=== PATIENT | male | born 1935 | race Caucasian/White ===

== ENCOUNTER 2019-08-15 05:33 | Inpatient (IN) ==
[2019-08-15] MEDS ORDERED: DUONEB (A & A) INH ONE (06:14)
[2019-08-15 06:55] LABS: BASO# 0.07 X1000 (0.0-0.2); BASO% 0.7 % (0.0-0.8); EOS# 0.36 X1000 (0.0-0.7); EOS% 3.8 % (0.0-10.0); HEMATOCRIT 41.7 % (42.0-52.0); HEMOGLOBIN 13.7 g/dL (14.0-18.0); IMM GRAN# 0.16 X1000 (0.0-0.04); IMM GRAN% 1.7 % (0.0-0.5); LYMPH% 15.9 % (20.5-51.1); MCH 30.8 PG (27-31); MCHC 32.9 g/dL (33-37); MCV 93.7 FL (81-99); MONO# 1.26 X1000 (0.11-0.59); MONO% 13.3 % (1.7-9.3); MPV 10.4 FL (7.4-10.4); NEUT% 64.6 % (42.2-75.2); PLT 255 X1000 (130-400); RBC 4.45 XMIL (4.7-6.1); RDW 13.3 % (11.5-14.5); WBC 9.45 X1000 (4.8-10.8)
[2019-08-15 07:21] LABS: ALBUMIN 3.8 g/dL (3.5-5.0); CALCIUM 9.3 mg/dL (8.8-10.2); CREATININE 1.9 mg/dL (0.7-1.2); POTASSIUM 3.9 mmol/L (3.5-5.1); TOTAL BILIRUBIN 1.1 mg/dL (0.20-1.00); TOTAL PROTEIN 8.9 g/dL (6.3-8.3)
--- NOTE | 2019-08-15 07:28 | Diag Imaging Result Doc PS360 ---
EXAM: CHEST-PORTABLE - 08/15/2019 HISTORY: cough TECHNIQUE: Portable chest COMPARISON: None. FINDINGS: Heart size is normal. Inspiration is mildly shallow. There are apparent COPD changes with mild interstitial scarring. There is no dense consolidation, substantial pleural effusion, or pneumothorax identified. IMPRESSION: Apparent COPD changes with mild interstitial scarring. No discrete pneumonia. Electronically signed by Jeff Tavera 08/15/2019 7:26 AM
--- NOTE | 2019-08-15 08:40 | PROVIDER DOCUMENTATION ---
HPI-Respiratory General - General Chief Complaint: Shortness of Breath Stated Complaint: SOB Time Seen by Provider: 08/15/19 06:22 Allergies/Adverse Reactions: Patient Allergies Allergy/AdvReac Type Severity Reaction Status Date / Time codeine AdvReac Unknown Verified 03/18/19 14:56 Home Medications: Home Medication List Medication Instructions Recorded Confirmed Last Taken Type Fluticasone/Salmet 100/50 INH 1 puff INH RTBID 09/10/14 06/23/19 06/29/19 02:30 History [Advair 100/50 Diskus] Montelukast Chew [Singulair] 10 mg PO DAILY 09/10/14 06/23/19 06/28/19 08:00 History Cranberry Fruit Extract [Cranberry] 500 mg PO DAILY 05/08/18 06/23/19 06/28/19 08:00 History Famotidine 40 mg PO DAILY 05/08/18 06/23/19 06/28/19 08:00 History Fluocinonide 0.05% Cream [Lidex 1 applicatn TOP PRN PRN 05/08/18 06/23/19 06/28/19 21:00 History 0.05% Cream] Fluticasone Propionate [Flonase 2 spray NS DAILY 05/08/18 06/23/19 06/28/19 08:00 History Allergy Relief] Furosemide [Lasix] 20 mg PO BID 05/08/18 06/23/19 06/28/19 21:00 History Guaifenesin/Dextromethorphan 1 each PO PRN PRN 05/08/18 06/23/19 06/28/19 21:00 History [Robitussin Rmepj-Spcfk-Tiew Dm] Ipratropium/Albuterol INH 1 puff INH 4XDAY 05/08/18 06/23/19 06/28/19 21:00 History [Combivent Respimat Inhaler] Minocycline [Minocin] 50 mg PO BID 05/08/18 06/23/19 06/28/19 21:00 History Nitrofurantoin Macrocrystal 100 mg PO DAILY 05/08/18 06/23/19 06/28/19 08:00 History [Nitrofurantoin] Potassium Chloride [Klor-Con M20] 20 meq PO DAILY 05/08/18 06/23/19 06/28/19 08:00 History Polyethylene Glycol 3350 [Miralax] 17 gm PO DAILY 05/14/18 06/23/19 06/28/19 08:00 History Meloxicam 15 mg PO BID PRN PRN 03/18/19 06/23/19 06/28/19 21:00 History Hydrocodone/APAP 7.5 mg/325 mg 1 ea PO Q4H PRN PRN #10 tab 06/29/19 Unknown Rx [[place]-7.5] - History of Present Illness-Resp Nature of Presenting Problem: Patient with history of COPD and chf and recent diagnosis of bladder cancer presents with shortness of breath and "I just don't feel right". He is finishing up a course of Levaquin for pneumonia. Quality of Pain: reports: none Severity in ED: denies: mild, moderate, severe Onset/Duration: reports: 1 week ago Timing: reports: still present Context: denies: recent foreign travel, insect bite (possible tick), recent chemotherapy, multiple patients with similar complaints, recent URI, out of meds, sports/exercise, aspiration/choking, other Exposure: reports: unknown cause Cough Quality/Degree: reports: no cough, moderate Episode Frequency: frequent episodes Current Respiratory Medication Therapy: Initiated albuterol/atrovent inhale, Initiated A/A nebulizer, Initiated steroid inhaler Modifying Factors: improves with: exertion Associated Symptoms: reports: cough, dizziness Similar Symptoms Previously?: Yes Recently seen or treated by another doctor?: Yes Review of Systems - Adult - REVIEW OF SYSTEMS - ADULT Constitutional: reports: no symptoms reported Eyes: reports: no symptoms reported Ears, Nose, Mouth & Throat: reports: no symptoms reported Cardiovascular: reports: no symptoms reported Respiratory: reports: see HPI Gastrointestinal: reports: no symptoms reported Genitourinary: reports: no symptoms reported Musculoskeletal: reports: no symptoms reported Integumentary: reports: no symptoms reported Neurological: reports: no symptoms reported Psychiatric: reports: no symptoms reported Endocrine: reports: no symptoms reported Hematologic/Lymphatic: reports: no symptoms reported Allergic/Immunologic: reports: no symptoms reported Past History - Adult - PAST MEDICAL HISTORY-ADULT Review of Records: reports: Old Records Reviewed, Nursing Assessment Review Major Childhood Illnesses: reports: denies history Cardiovascular: reports: denies history Respiratory: reports: asthma, COPD, other (seasonal allergies) Gastrointestinal: reports: GERD Genitourinary: reports: denies history Musculoskeletal: reports: arthritis Neurological: reports: denies history Psychiatric: reports: denies history Endocrine/Immune: reports: denies history Other Conditions: reports: denies history - PRIOR SURGERIES/PROCEDURES Surgical/Procedure History: reports: EGD - IMMUNIZATION STATUS Childhood Immunizations: UTD - FAMILY HISTORY Family History: reviewed, not pertinent Physical Exam-General - PHYSICAL EXAM-ADULT Initial Vital Signs Reviewed: Yes - CONSTITUTIONAL General Appearance: appears well, alert, no apparent distress - EYES Eyes: PERRL/EOMI, pink conjunctivae - HEAD, EARS, NOSE, MOUTH & THROAT HENMT: normocephalic/atraumatic, other (mucous membrane dry) - NECK Neck: non-tender, full range of motion, supple - RESPIRATORY Respiratory: wheezing - CARDIOVASCULAR Cardiovascular: normal peripheral pulses, regular rate, rhythm, no edema - GASTROINTESTINAL (ABDOMEN) Abdominal Exam: normal bowel sounds, non tender, soft, no organomegaly, no pulsatile mass - LYMPHATIC Lymphatic: no adenopathy - MUSCULOSKELETAL Back Exam: normal inspection, no CVA tenderness Extremity: normal range of motion, non-tender, no pedal edema - SKIN Integumentary: normal color, normal turgor, warm/dry - NEUROLOGIC Neurologic: grossly normal - PSYCHIATRIC Psych/Mental Status: normal mood/affect Progress - PLAN OF CARE/RESULTS Progress/Plan/Lab Results: Vital Signs - 8 hr 08/15/19 05:39 08/15/19 06:25 08/15/19 06:45 Temperature 97.8 F Pulse Rate 92 H 89 89 Respiratory Rate 24 17 20 Blood Pressure 131/67 127/88 O2 Sat by Pulse Oximetry 97 100 99 08/15/19 08:30 08/15/19 10:25 Temperature 99.0 F Pulse Rate 87 80 Respiratory Rate 24 25 H Blood Pressure 142/88 132/74 O2 Sat by Pulse Oximetry 97 100 Laboratory Results - last 24 hr 08/15/19 08/15/19 08/15/19 05:55 06:11 06:11 WBC 9.45 RBC 4.45 L Hgb 13.7 L Hct 41.7 L MCV 93.7 MCH 30.8 MCHC 32.9 L RDW Std Deviation 13.3 Plt Count 255 MPV 10.4 Immature Gran % (Auto) 1.7 H Neut % (Auto) 64.6 Lymph % (Auto) 15.[address] [facility] % (Auto) 13.3 H Eos % (Auto) 3.8 Baso % (Auto) 0.7 Immature Gran # (Auto) 0.16 H Neut # (Auto) 6.10 Lymph # (Auto) 1.50 [facility] # (Auto) 1.26 H Eos # (Auto) 0.36 Baso # (Auto) 0.07 D-Dimer, Quantitative Sodium 135 L Potassium 3.9 Chloride 97 L Carbon Dioxide 21 L Anion Gap 17 BUN 33 H Creatinine 1.9 H Estimated GFR/1.73 m2 34 BUN/Creatinine Ratio 17 Glucose 151 H Calculated Osmolality 280 Calcium 9.3 Total Bilirubin 1.10 H AST 21 ALT 10 Alkaline Phosphatase 116 Gwr-U-Isccxtbptvf Pept Total Protein 8.9 H Albumin 3.8 Globulin 5.0 Albumin/Globulin Ratio 1.0 Plasma Lactate 3.0 H 08/15/19 08/15/19 08/15/19 06:11 06:11 09:49 WBC RBC Hgb Hct MCV MCH MCHC RDW Std Deviation Plt Count MPV Immature Gran % (Auto) Neut % (Auto) Lymph % (Auto) [facility] % (Auto) Eos % (Auto) Baso % (Auto) Immature Gran # (Auto) Neut # (Auto) Lymph # (Auto) [facility] # (Auto) Eos # (Auto) Baso # (Auto) D-Dimer, Quantitative 2.59 H Sodium Potassium Chloride Carbon Dioxide Anion Gap BUN Creatinine Estimated GFR/1.73 m2 BUN/Creatinine Ratio Glucose Calculated Osmolality Calcium Total Bilirubin AST ALT Alkaline Phosphatase Kma-U-Cultzifyekk Pept 341 Total Protein Albumin Globulin Albumin/Globulin Ratio Plasma Lactate 3.5 H Orders Category Date Time Status Saline Loc NOW Care 08/15/19 06:14 Active CHEST-PORTABLE [RAD] Stat Exams 08/15/19 06:[address] THORAX W/O CONTRAST [CT] Stat Exams 08/15/19 08:55 Completed BLOOD CULTURE [BLDCUL] Stat Lab 08/15/19 06:44 Ordered CBC WITH DIFF [HEME] Stat Lab 08/15/19 05:55 Completed COMPREHENSIVE METABOLIC PANEL [CHEM] Stat Lab 08/15/19 06:11 Completed D-DIMER [COAG] Stat Lab 08/15/19 06:11 Completed LACTATE, PLASMA [CHEM] Stat Lab 08/15/19 06:11 Completed LACTATE, PLASMA [CHEM] Stat Lab 08/15/19 09:49 Completed PRO B-NATRIURETIC PEPTIDE Stat Lab 08/15/19 06:11 Completed 0.9% Sodium Chloride Inj [Ns] 1,000 ml Med 08/15/19 08:41 Discontinued IV 999 mls/hr 0.9% Sodium Chloride Inj [Ns] 1,000 ml Med 08/15/19 09:55 Active IV 999 mls/hr 0.9% Sodium Chloride Inj [Ns] 1,000 ml Med 08/15/19 10:18 Active IV 999 mls/hr Albuterol 2.5MG/Ipratrop 0.5MG [Duoneb (A & A)] Med 08/15/19 06:14 Discontinued 3 ml INH NOW ONE Pharmacy Order [Vancomycin IV Per Pharmacy] Med 08/15/19 10:30 Ordered 1 each MISC DIRECTED Piperacillin/Tazobactam [Zosyn] 3.375 gm Med 08/15/19 10:18 Active 0.9% Sodium Chloride Inj [Ns] 50 ml IV NOW Aerosol Treatments Routine Oth 08/15/19 06:15 Completed Aerosol Treatments Stat Oth 08/15/19 06:15 Completed Pulse Oximetry Stat Oth 08/15/19 06:14 Completed Result Diagrams: 08/15/19 05:55 08/15/19 06:11 - REASSESSMENT Reassessment #1 Time Reassessed: 10:28 Status: unchanged - CONSULTS/PCP/HOSPITALIST Notification #1 *Consult/PCP/Hospitalist*: Dr Alford Time Discussed: 10:28 Consult Disposition: Will see in ED Departure - Departure Date of Disposition Decision: 08/15/19 Time of Disposition Decision: 10:29 DIAGNOSIS: Pneumonia Qualifiers: Pneumonia type: due to unspecified organism Laterality: left Lung location: lower lobe of lung Qualified Code(s): J18.1 - Lobar pneumonia, unspecified organism Disposition: ADMITTED INPATIENT 09 Certified Medical Emergency: Emergent Condition: Fair Referrals and Follow-Ups: None,PCP [Primary Care Provider] - - Critical Care Note This patient required my direct & personal management of CC.: No Attestation - Physician/ LACEY Attestation Patient care was provided by Advanced Practice Provider:: No The physician spent face to face time with patient:: Yes Advanced Practice Provider documentation review:: Supervising physician onsite and consulted in the evaluation and care of this patient. The physician did have a face to face encounter with the patient.
[2019-08-15] MEDS ORDERED: NS 1,000 ML IV ONE ×3 (08:41→10:18)
[2019-08-15] MEDS ORDERED: ZOSYN 3.375 GM in NS 50 ML IV ONE (10:18)
--- NOTE | 2019-08-15 10:20 | Diag Imaging Result Doc PS360 ---
EXAM: CT THORAX W/O CONTRAST - 08/15/2019 HISTORY: sob TECHNIQUE: CT thorax without contrast COMPARISON: 08/15/2019 portable chest radiograph FINDINGS: There is interstitial fibrosis. There is some associated peripheral honeycombing. There is apparent superimposed infiltrate at the posterior left lower lobe. There is no pleural effusion or pneumothorax identified. There is an 8 mm noncalcified nodule at the left lower lobe. There are nonspecific small mediastinal lymph nodes. IMPRESSION: Interstitial fibrosis. Infiltrate at posterior left lower lobe which is suspicious for pneumonia. 8mm noncalcified nodule at left lower lobe. This exam was performed using automated exposure control, adjustment of mA or kV according to patient size, and/or use of iterative reconstruction technique. Electronically signed by Jeff Tavera 08/15/2019 10:18 AM
[2019-08-15] MEDS ORDERED: VANCOMYCIN IV PER PHARMACY MISC SCH (10:30)
[2019-08-15] MEDS ORDERED: ZOFRAN IV PRN (10:52)
[2019-08-15] MEDS: ROCEPHIN 1 GM in NS 50 ML IV SCH (11:21)
[2019-08-15] MEDS ORDERED: DOXYCYCLINE 100 MG in NS 250 ML IV SCH (11:30)
[2019-08-15] MEDS ORDERED: VANCOMYCIN 2,000 MG in NS 500 ML IV ONE (12:00)
--- NOTE | 2019-08-15 12:52 | HISTORY AND PHYSICAL ---
CHIEF COMPLAINT: Shortness of breath. HISTORY OF PRESENT ILLNESS: The patient is a very pleasant 83-year-old male who has a known history of COPD as well as bladder cancer. He recently was treated for pneumonia. He has been on antibiotics for the past several days. Family notes that he has continued to have cough congestion. Yesterday his shortness of breath worsened and today they brought him to the ER. ALLERGIES: Allergies codeine. Patient notes that he got sick while on codeine while he was in the . MEDICATIONS: Advair, Singulair, Pepcid, Lasix 20 b.i.d. REVIEW OF SYSTEMS: The patient notes he is does not feel right. He has had increased cough, congestion. He has recently finished a course of Levaquin for his pneumonia. He has had increased shortness of breath, increased work of breathing. He has felt lightheaded after coughing. He has had shortness of breath with exertion. Denies any fevers, chills otherwise. Does use breathing treatments at home. Denies dysuria, urinary frequency, urgency, hesitancy. Denies constipation, melena, hematochezia. Denies weight loss, weight gain. PAST MEDICAL HISTORY: Significant for COPD, seasonal allergies, reflux, chronic arthritis. FAMILY HISTORY: Noncontributory. SOCIAL HISTORY: Patient has a long history of smoking but does not smoke currently. Denies any other alcohol or illicit substances. PHYSICAL EXAMINATION: VITAL SIGNS: Temperature 97.8, pulse 92, respiratory 24, BP 131/67. GENERAL: Patient is awake, currently in no respiratory distress. HEENT: Normocephalic. NECK: Supple. CARDIOVASCULAR: Regular rate. CHEST: Decreased but equal breath sounds. He is wheezing, no crackles. ABDOMEN: Soft, nondistended. EXTREMITIES: Moves all extremities. NEUROLOGIC: He is awake, alert, oriented, very pleasant. LABORATORY DATA: Creatinine 1.9, glucose 151, plasma lactate 3.0. ASSESSMENT: 1. Pneumonia, failed outpatient management. 2. Chronic obstructive pulmonary disease with mild exacerbation with wheezing. 3. Hyperglycemia. 4. Renal failure. Unsure of his chronic creatinine. His last on file was 2014. 5. Elevated BNP. Certainly could be from his pneumonia, although we do not have a previous BNP. PLAN: We are going to admit him to the hospital, place him on antibiotics, oxygen, breathing treatments. We will start his home medications once doses have been verified. Further orders as needed. cc: Jesus Alford MD
[2019-08-15] MEDS: DUONEB (A & A) INH PRN ×2 (14:53→19:16)
[2019-08-15] MEDS: DOXYCYCLINE 100 MG in NS 250 ML IV SCH (15:02)
[2019-08-15] MEDS ORDERED: MIRALAX PO PRN (16:34)
[2019-08-15] MEDS ORDERED: MOBIC PO PRN (16:34)
[2019-08-15] MEDS: ROBITUSSIN-DM PO PRN (21:25)
[2019-08-15] MEDS: TYLENOL PO PRN (21:26)
[2019-08-16 06:34] LABS: HEMOGLOBIN 12.1 g/dL (14.0-18.0); MCH 30.6 PG (27-31); MCHC 32.7 g/dL (33-37); MCV 93.7 FL (81-99); MPV 10.2 FL (7.4-10.4); RBC 3.95 XMIL (4.7-6.1); RDW 13.2 % (11.5-14.5); WBC 7.88 X1000 (4.8-10.8)
[2019-08-16 06:42] LABS: CALCIUM 8.5 mg/dL (8.8-10.2); CREATININE 1.3 mg/dL (0.7-1.2); POTASSIUM 3.8 mmol/L (3.5-5.1); TOTAL BILIRUBIN 0.9 mg/dL (0.20-1.00); TOTAL PROTEIN 7.3 g/dL (6.3-8.3)
[2019-08-16] MEDS: DOXYCYCLINE 100 MG in NS 250 ML IV SCH ×2 (07:25→14:13)
[2019-08-16] MEDS: DUONEB (A & A) INH PRN ×3 (07:48→15:22)
[2019-08-16] MEDS: PEPCID PO SCH (09:24)
[2019-08-16] MEDS: TYLENOL PO PRN ×2 (09:24→16:46)
[2019-08-16] MEDS: FOLIC ACID PO SCH (09:24)
[2019-08-16] MEDS: ROCEPHIN 1 GM in NS 50 ML IV SCH (11:31)
--- NOTE | 2019-08-16 12:01 | PROGRESS NOTE ---
DATE: 08/16/2019 SUBJECTIVE: Patient with no new complaints. States that he is breathing easier, feeling better. Denies any chest pain, palpitations. PHYSICAL EXAMINATION: Vital Signs: Temperature 98 degrees, pulse 83, respiratory rate 18, BP 122/64. General: The patient is awake. Currently in no respiratory distress. HEENT: Normocephalic. Neck: Supple. Cardiovascular: Regular rate. Chest: Clear. Abdomen: Soft, nondistended. Extremities: Moves all extremities. ASSESSMENT: 1. Pneumonia. 2. Chronic obstructive pulmonary disease with exacerbation. 3. Acute renal failure, improved. Creatinine is down 1.3. 4. Hyperglycemia. PLAN: We are going to continue the patient in the hospital. Continue breathing treatments, oxygen, antibiotics, and will follow. cc: Jesus Alfodr MD
--- NOTE | 2019-08-16 13:42 | Vascular Study Report ---
EXAM: Venous U/S Bilateral Legs HISTORY: elevated d dimer TECHNIQUE: Bilateral lower extremity venous Doppler ultrasound COMPARISON: None. FINDINGS: There is good flow and compressibility in the veins of the lower extremities. No thrombus identified. IMPRESSION: No deep venous thrombosis within either lower extremity. Electronically signed by Gianni Bonds 08/16/2019 1:39 PM
[2019-08-16] MEDS ORDERED: VANCOMYCIN 1,800 MG in NS 500 ML IV SCH (18:00)
[2019-08-16] MEDS: ROBITUSSIN-DM PO PRN (19:35)
[2019-08-17] MEDS: DOXYCYCLINE 100 MG in NS 250 ML IV SCH (01:08)
[2019-08-17] MEDS: ROBITUSSIN-DM PO PRN (06:25)
[2019-08-17] MEDS: DUONEB (A & A) INH PRN ×3 (07:55→15:26)
[2019-08-17] MEDS: FOLIC ACID PO SCH (08:08)
[2019-08-17] MEDS: PEPCID PO SCH (08:08)
--- NOTE | 2019-08-17 08:12 | Diag Imaging Result Doc PS360 ---
CHEST-PORTABLE - 08/17/2019 INDICATION: SOB COMPARISON: 08/15/2019 FINDINGS: Heart size remains normal. There are stable ill-defined reticulonodular opacities diffusely and bilaterally, worse in both upper lobes. No pneumothorax or significant pleural effusion. Pulmonary vascularity is grossly normal. IMPRESSION: No change from prior. Electronically signed by Ilan Leon 08/17/2019 8:09 AM
[2019-08-17] MEDS: TYLENOL PO PRN (08:59)
[2019-08-17] MEDS ORDERED: DOXYCYCLINE PO SCH (09:00)
[2019-08-17] MEDS: ROCEPHIN 1 GM in NS 50 ML IV SCH (11:25)
[2019-08-17 14:31] VITALS: BP 116/60
--- NOTE | 2019-08-18 21:54 | DISCHARGE SUMMARY ---
ADMISSION DATE: 08/15/2019 DISCHARGE DATE: 08/17/2019 DISCHARGE DIAGNOSES: 1. Acute on chronic renal failure. Resolved. 2. Pneumonia. Improved clinically, although chest x-ray has not really changed. 3. Chronic obstructive pulmonary disease with mild exacerbation. 4. Hyperglycemia. CONSULTATIONS: None. PROCEDURES: None. HOSPITAL COURSE: The patient is a very pleasant, 83-year-old male, who presented to the hospital with increased work of breathing, cough, congestion, shortness of breath. He was placed on antibiotics, breathing treatments, oxygen. He states he is feeling much better and states that he has to go home. He has a doctor's appointment that he has follow up with. DISPOSITION: Patient will be discharged home, although would have preferred him to stay in the hospital another day or two, to fully treat his pneumonia. Patient and family are adamant that he needs to be discharged. Instead of him going AMA, we are going to discharge him with antibiotics, doxycycline and Omnicef. He will continue his Advair, Singulair, Pepcid, and Lasix at home. He will follow up outpatient with treatment facility of choice. TIME SPENT: Greater than 30 minutes was spent in total care. cc: Jesus Alford MD
== END 2019-08-17 19:59 | disposition home or self-care (01) | DRG 194 ==
LOC: P.ED 05:33 → P.MEDSURG 11:39
PROVIDERS: ATTEND Family Medicine

== ENCOUNTER 2019-09-10 06:22 | Inpatient (IN) ==
--- NOTE | 2019-09-10 06:37 | PROVIDER DOCUMENTATION ---
HPI-Fever - General Stated Complaint: fever Time Seen by Provider: 09/10/19 06:35 Source: patient, family, EMS Allergies/Adverse Reactions: Patient Allergies Allergy/AdvReac Type Severity Reaction Status Date / Time codeine AdvReac Unknown Verified 09/10/19 06:56 Home Medications: Home Medication List Medication Instructions Recorded Confirmed Last Taken Type Fluticasone/Salmet 100/50 INH 1 puff INH RTBID 09/10/14 09/10/19 08/27/19 02:30 History [Advair 100/50 Diskus] Montelukast Chew [Singulair] 10 mg PO DAILY 09/10/14 09/10/19 08/26/19 History Cranberry Fruit Extract [Cranberry] 500 mg PO DAILY 05/08/18 09/10/19 08/26/19 History Famotidine 40 mg PO DAILY 05/08/18 09/10/19 08/26/19 History Fluocinonide 0.05% Cream [Lidex 1 applicatn TOP PRN PRN 05/08/18 09/10/19 08/26/19 History 0.05% Cream] Fluticasone Propionate [Flonase 2 spray NS DAILY 05/08/18 09/10/19 08/26/19 History Allergy Relief] Furosemide [Lasix] 20 mg PO DAILY 05/08/18 09/10/19 08/26/19 History Ipratropium/Albuterol INH 1 puff INH 4XDAY 05/08/18 09/10/19 08/26/19 History [Combivent Respimat Inhaler] Minocycline [Minocin] 50 mg PO BID PRN 05/08/18 09/10/19 08/26/19 History Nitrofurantoin Macrocrystal 100 mg PO DAILY 05/08/18 09/10/19 08/26/19 History [Nitrofurantoin] Polyethylene Glycol 3350 [Miralax] 17 gm PO DAILY 05/14/18 09/10/19 08/26/19 History Meloxicam 15 mg PO BID PRN PRN 03/18/19 09/10/19 08/25/19 History Acetaminophen E.r. [Tylenol 2 tab PO TID PRN 08/15/19 09/10/19 08/27/19 02:30 History Arthritis] Potassium Chloride [Klor-Con M20] 20 meq PO DAILY 08/25/19 09/10/19 08/26/19 History - History of Present Illness-Fever Nature of Presenting Problem: Patient is a 84 year old white male with bladder cancer, currently receiving chemotherapy and radiation treatment to lower abdomen, and history of recent pneumonia who presents by EMS with reported fever, cough, and low blood pres sure. patient is followed by Dr. Zhu. Last chemo was last Saturday and last radiation treatment was 3 days ago. 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 Zhu and XRT doctor) - Glascow Coma Score Best Eye Response ([place]): (4) open spontaneously Best Verbal Response ([place]): (5) oriented Best Motor Response ([place]): (6) obeys commands Review of Systems - Adult - REVIEW OF SYSTEMS - ADULT Constitutional: reports: chills, fever, fatique Eyes: denies: discharge Ears, Nose, Mouth & Throat: denies: throat pain Cardiovascular: denies: chest pain Respiratory: reports: see HPI, cough Gastrointestinal: denies: abdominal pain Genitourinary: reports: see HPI Musculoskeletal: reports: no symptoms reported Integumentary: reports: other (abrasion to right lower leg) Neurological: reports: no symptoms reported Psychiatric: reports: no symptoms reported Endocrine: reports: no symptoms reported Hematologic/Lymphatic: reports: no symptoms reported Allergic/Immunologic: reports: no symptoms reported Past History - Adult - PAST MEDICAL HISTORY-ADULT Review of Records: reports: Old Records Reviewed, Nursing Assessment Review, Medications Reviewed Major Childhood Illnesses: reports: denies history Cardiovascular: reports: denies history Respiratory: reports: asthma, COPD, other (seasonal allergies) Gastrointestinal: reports: GERD Genitourinary: reports: denies history Musculoskeletal: reports: arthritis Neurological: reports: denies history Psychiatric: reports: denies history Endocrine/Immune: reports: denies history Other Conditions: reports: denies history - PRIOR SURGERIES/PROCEDURES Surgical/Procedure History: reports: EGD - IMMUNIZATION STATUS Childhood Immunizations: UTD - FAMILY HISTORY Family History: reviewed, not pertinent Physical Exam-General - PHYSICAL EXAM-ADULT Initial Vital Signs Reviewed: Yes (Febrile, tachycardic) - CONSTITUTIONAL General Appearance: alert, no apparent distress, other (GCS=15) - EYES Eyes: PERRL/EOMI, pink conjunctivae, other (clear) - HEAD, EARS, NOSE, MOUTH & THROAT HENMT: normocephalic/atraumatic, moist mucous membranes, normal ENT inspection - NECK Neck: supple - RESPIRATORY Respiratory: decreased breath sounds, rhonchi, other (large old bruising over right upper chest around central port) - CARDIOVASCULAR Cardiovascular: no edema, no gallop, tachycardia, systolic murmur, irregularly irregular - CHEST (BREASTS) Chest/Breast: other (port right upper chest with fair amount of ecchymosis. 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 tested, grossly normal - PSYCHIATRIC Psych/Mental Status: normal thought content, normal thought process, oriented x 3, anxious Progress - PLAN OF CARE/RESULTS Progress/Plan/Lab Results: Vital Signs - 8 hr 09/10/19 06:24 09/10/19 06:29 09/10/19 06:41 Temperature 98.9 F Pulse Rate 91 H 104 H 97 H Respiratory Rate 18 24 Blood Pressure 99/47 99/47 O2 Sat by Pulse Oximetry 97 97 97 09/10/19 06:45 09/10/19 07:25 09/10/19 07:34 Temperature 101.9 F H Pulse Rate 107 H 88 101 H Respiratory Rate 21 42 H 24 Blood Pressure 86/43 84/43 O2 Sat by Pulse Oximetry 96 99 98 09/10/19 07:50 09/10/19 08:03 09/10/19 08:47 Temperature 100.9 F H Pulse Rate 87 90 81 Respiratory Rate 37 H 31 H 26 H Blood Pressure 94/40 81/49 90/47 O2 Sat by Pulse Oximetry 98 98 98 09/10/19 08:48 09/10/19 08:49 09/10/19 08:56 Temperature Pulse Rate 79 90 100 H Respiratory Rate 32 H 28 H 27 H Blood Pressure 75/44 95/41 68/35 O2 Sat by Pulse Oximetry 97 93 L 96 09/10/19 08:57 09/10/19 09:03 09/10/19 09:04 Temperature 100.0 F H Pulse Rate 88 98 H 83 Respiratory Rate 29 H 29 H 28 H Blood Pressure 74/50 77/47 73/40 O2 Sat by Pulse Oximetry 98 93 L 99 09/10/19 09:18 09/10/19 09:29 Temperature 99.9 F H Pulse Rate 77 95 H Respiratory Rate 30 H 25 H Blood Pressure 84/49 91/76 O2 Sat by Pulse Oximetry 97 90 L 09/10/19 06:50 Influenza Screen - Final Nasopharyngeal Laboratory Results - last 24 hr 09/10/19 09/10/19 09/10/19 06:30 06:30 06:30 WBC 7.76 RBC 4.16 L Hgb 13.2 L Hct 39.2 L MCV 94.2 MCH 31.7 H MCHC 33.7 RDW Std Deviation 14.5 Plt Count 83 L MPV 11.0 H Neut % (Auto) 83.4 H Lymph % (Auto) 5.9 L [place] % (Auto) 6.8 Eos % (Auto) 3.9 Baso % (Auto) 0.0 Neut # (Auto) 6.47 Lymph # (Auto) 0.46 L [place] # (Auto) 0.53 Eos # (Auto) 0.30 Baso # (Auto) 0.00 PT INR PTT (Actin FS) Sodium 141 Potassium 3.5 Chloride 102 Carbon Dioxide 24 L Anion Gap 15 BUN 22 Creatinine 1.3 H Estimated GFR/1.73 m2 52 BUN/Creatinine Ratio 17 Glucose 142 H Calculated Osmolality 287 Calcium 8.7 L Total Bilirubin 1.55 H AST 30 ALT 15 Alkaline Phosphatase 117 Creatine Kinase 79 Troponin T Bbr-N-Sicfqkkszpi Pept Total Protein 6.9 Albumin 3.4 L Globulin 3.5 Albumin/Globulin Ratio 1.0 Plasma Lactate 2.7 H Urine Source Urine Color Urine Turbidity Urine pH Ur Specific [place] Urine Protein Ur Glucose (Stick) Ur Ketones (Stick) Urine Blood Urine Nitrite Urine Bilirubin Urobilinogen Dipstick Urine Leukocytes Urine WBC (Auto) Urine RBC (Auto) U Epithel Cells (Auto) Urine Bacteria (Auto) 09/10/19 09/10/19 09/10/19 06:30 06:30 06:30 WBC RBC Hgb Hct MCV MCH MCHC RDW Std Deviation Plt Count MPV Neut % (Auto) Lymph % (Auto) [place] % (Auto) Eos % (Auto) Baso % (Auto) Neut # (Auto) Lymph # (Auto) [place] # (Auto) Eos # (Auto) Baso # (Auto) PT 15.4 INR 1.20 PTT (Actin FS) 30.1 Sodium Potassium Chloride Carbon Dioxide Anion Gap BUN Creatinine Estimated GFR/1.73 m2 BUN/Creatinine Ratio Glucose Calculated Osmolality Calcium Total Bilirubin AST ALT Alkaline Phosphatase Creatine Kinase Troponin T 0.102 H Nqv-Y-Ogiuhwenmam Pept 715 H Total Protein Albumin Globulin Albumin/Globulin Ratio Plasma Lactate Urine Source Urine Color Urine Turbidity Urine pH Ur Specific [place] Urine Protein Ur Glucose (Stick) Ur Ketones (Stick) Urine Blood Urine Nitrite Urine Bilirubin Urobilinogen Dipstick Urine Leukocytes Urine WBC (Auto) Urine RBC (Auto) U Epithel Cells (Auto) Urine Bacteria (Auto) 09/10/19 07:44 WBC RBC Hgb Hct MCV MCH MCHC RDW Std Deviation Plt Count MPV Neut % (Auto) Lymph % (Auto) [place] % (Auto) Eos % (Auto) Baso % (Auto) Neut # (Auto) Lymph # (Auto) [place] # (Auto) Eos # (Auto) Baso # (Auto) PT INR PTT (Actin FS) Sodium Potassium Chloride Carbon Dioxide Anion Gap BUN Creatinine Estimated GFR/1.73 m2 BUN/Creatinine Ratio Glucose Calculated Osmolality Calcium Total Bilirubin AST ALT Alkaline Phosphatase Creatine Kinase Troponin T Iqn-Y-Hiyijlbtdll Pept Total Protein Albumin Globulin Albumin/Globulin Ratio Plasma Lactate Urine Source CATH Urine Color YELLOW Urine Turbidity HAZY Urine pH 6.0 Ur Specific [place] 1.015 Urine Protein NEGATIVE Ur Glucose (Stick) NEGATIVE Ur Ketones (Stick) NEGATIVE Urine Blood TRACE A Urine Nitrite POSITIVE A Urine Bilirubin NEGATIVE Urobilinogen Dipstick NORMAL Urine Leukocytes SMALL A Urine WBC (Auto) TNTC A Urine RBC (Auto) <10 U Epithel Cells (Auto) <10 Urine Bacteria (Auto) 1+ Orders Category Date Time Status Cardiac Monitoring DIRECTED Care 09/10/19 06:27 Active Cardiac Monitoring DIRECTED Care 09/10/19 06:30 Active Core Temperature ORDERED Care 09/10/19 06:29 Active Giang Cath Insertion ORDERED Care 09/10/19 08:04 Active IV Insertion ORDERED Care 09/10/19 06:27 Completed Intake and Output-Strict ORDERED Care 09/10/19 07:02 Active Notify MD of + Sepsis Screen NOW Care 09/10/19 06:27 Active Repeat Vital Signs .Blood Pressure Care 09/10/19 07:02 Active Repeat Vital Signs .Heart Rate Care 09/10/19 07:02 Active Repeat Vital Signs .Oxygen Saturation Care 09/10/19 07:02 Active Repeat Vital Signs .Respiratory Rate Care 09/10/19 07:02 Active Repeat Vital Signs .Temp Care 09/10/19 07:02 Active CHEST-1 VIEW [RAD] Stat Exams 09/10/19 06:[address] ABD/PELVIS W/IV CONT ONLY [CT] Stat Exams 09/10/19 06:59 Completed BLOOD CULTURE [BLDCUL] Stat Lab 09/10/19 06:30 Results CBC WITH DIFF [HEME] Stat Lab 09/10/19 06:30 Completed CK PROFILE [SP CHEM] Stat Lab 09/10/19 06:30 Completed COMPREHENSIVE METABOLIC PANEL [CHEM] Stat Lab 09/10/19 06:30 Completed INFLUENZA SCREEN A/B Stat Lab 09/10/19 06:50 Completed LACTATE, PLASMA [CHEM] Lab 09/10/19 09:34 Received LACTATE, PLASMA [CHEM] Lab 09/10/19 12:30 Uncollected LACTATE, PLASMA [CHEM] Q3H Lab 09/10/19 06:30 Completed PRO B-NATRIURETIC PEPTIDE Stat Lab 09/10/19 06:30 Completed PROTIME WITH INR [COAG] Stat Lab 09/10/19 06:30 Completed PTT [COAG] Stat Lab 09/10/19 06:30 Completed TROPONIN T Stat Lab 09/10/19 06:30 Completed URINALYSIS W/POSS RFLX CULT [URINALYSIS] Stat Lab 09/10/19 07:44 Completed URINE CULTURE [RM] Routine Lab 09/10/19 07:44 Received 0.9% Sodium Chloride Inj [Ns] 1,000 ml Med 09/10/19 07:02 Discontinued IV 999 mls/hr 0.9% Sodium Chloride Inj [Ns] 1,000 ml Med 09/10/19 07:02 Discontinued IV As Directed mls/hr 0.9% Sodium Chloride Inj [Ns] 250 ml Med 09/10/19 09:14 Discontinued .ROUTE As directed 0.9% Sodium Chloride Inj [Ns] 250 ml Med 09/10/19 09:04 Discontinued IV 999 mls/hr 0.9% Sodium Chloride Inj [Ns] 500 ml Med 09/10/19 07:02 Discontinued IV 999 mls/hr Acetaminophen [Tylenol] Med 09/10/19 06:53 Discontinued 650 mg PO NOW ONE Dextrose 5%-0.45% NaCl Inj [D5 09/17 Ns] 250 ml Med 09/10/19 09:15 Active Norepinephrine [Levophed] 8 mg IV As Directed mls/hr Piperacillin/Tazobactam [Zosyn] 3.375 gm Med 09/10/19 06:53 Discontinued 0.9% Sodium Chloride Inj [Ns] 50 ml IV NOW Vancomycin 1 gm/Ns Med 09/10/19 07:08 Discontinued 1 gm in 250 ml IV NOW Oxygen Device Stat Oth 09/10/19 06:27 Active Pulse Oximetry Stat Oth 09/10/19 06:37 Active EKG [EKG] Stat Ther 09/10/19 06:30 Draft Result Diagrams: 09/10/19 06:30 09/10/19 06:30 - REASSESSMENT Reassessment #1 Time Reassessed: 07:24 Status: improving (Seen and examined by me. Case discussed with Dr. Benson at shift change. Though radiology thinks there may be free air under the right hemidiaphragm, patient is non-tender. Meets sepsis criteris, so given IVF bolu s, tylenol, vanc/zosyn. Awaiting CT and labs.) Reassessment #2 Time Reassessed: 09:04 Status: improving (States feels much better with fluids, however, pressure has dropped despite 30ml/kg bolus. Will start levaphed drip and admit to hospital ist) - EKG 1 Time of EKG reading by physician:: 06:39 Rate: 109 Rhythm: atrial fibrillation [place]: left QRS: RBB, PVC's Prior EKG Comparison: unchanged from prior (08/25/19) Comments: no STEMI - XRAY 1 XRAY Study: Chest Impression: Abnormal ( CHEST-1 VIEW - 09/10/2019 INDICATION: fever COMPARISON: 08/17/2019 FINDINGS: Stable mild upper lobe infiltrates bilaterally. There is unusual curvilinear density of the right hemidiaphragm. Peritoneal free air cannot be excluded. IMPRESSION: Cannot exclude peritoneal free air. Further imaging recommended. This report was discussed with Dr. Benson on 09/10/2019 at 6:45 AM and was readback. Electronically signed by Ilan Leon 09/10/2019 6:49 AM 09/10/19 0649 Interpreting Physician: Ilan Leon MD Dictated Date/Time: 09/10/19 0691 cc: [place] Benson MD; Aung Barron MD), See EMR Report XRAY Interpretation: possible free air under right diaphram per phone report by radiologist Dr Hobson - CT/MRI 1 CT Study: Abdomen Impression: Abnormal ( EXAM: CT ABD/PELVIS W/IV CONT ONLY HISTORY: free air under diaphram TECHNIQUE: CT abdomen and pelvis with intravenous contrast COMPARISON: 03/31/2019 FINDINGS: No free air beneath the diaphragm. There is sludge or small stones within the gallbladder. No adjacent inflammation. Normal liver, spleen, and adrenal glands. There are scattered pancreatic calcifications. No large pseudocysts are adjacent inflammation. No solid renal masses. No stones or hydronephrosis. Prominent atherosclerosis. No aortic aneurysm. No bowel obstruction. No inflammation about the cecum. No abscess. There is a Giang catheter within the urinary bladder. This thickening to the wall of urinary bladder with several bladder diverticula. There are prostatic calcifications. The prostate is not enlarged. Scattered colonic diverticula. Prominent degenerative spine changes. 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 IMPRESSION: 1.No free air 2.Distended gallbladder with sludge and/or stones, but no adjacent inflammation. 3.Multiple prostatic calcifications likely from chronic pancreatitis, but no CT evidence of acute pancreatitis. 4.Colonic diverticulosis 5.Possible cystitis 6.Prominent atherosclerosis This exam was performed using automated exposure control, adjustment of mA or kV according to patient size, and/or use of iterative reconstruction technique. Electronically signed by Gianni Bonds 09/10/2019 8:58 AM 09/10/19 0858 Interpreting Physician: Gianni Bonds MD Dictated Date/Time: 09/10/19 0852 cc: [place] Benson MD; Aung Barron MD) - CONSULTS/PCP/HOSPITALIST Notification #1 *Consult/PCP/Hospitalist*: SASHA Sol, paged [phone] Time Discussed: 09:45 Consult Disposition: Will see in ED, Admit - CHANGE OF SHIFT REPORT (ED Provider) 1 Time of Transfer: 07:00 Items Pending: Labs, XRAY Results Departure - Departure Date of Disposition Decision: 09/10/19 Time of Disposition Decision: 09:05 DIAGNOSIS: Septic shock, Primary bladder malignant neoplasm Urinary tract infection Qualifiers: Urinary tract infection type: acute cystitis Hematuria presence: with hematuria Qualified Code(s): N30.01 - Acute cystitis with hematuria Disposition: ADMITTED INPATIENT 09 Certified Medical Emergency: Emergent Condition: Stable Referrals and Follow-Ups: Aung Barron MD [Primary Care Provider] - - Critical Care Note This patient required my direct & personal management of CC.: Yes Total Time (mins): 45 Critical Care Statement: This patient required my direct personal management to treat or rule out processes, the absence of which, could potentiallly result in sudden, clinically significant life or limb threatening deterioration. Attestation - Physician/ LACEY Attestation Patient care was provided by Advanced Practice Provider:: No The physician spent face to face time with patient:: Yes Advanced Practice Provider documentation review:: Supervising physician onsite and consulted in the evaluation and care of this patient. The physician did have a face to face encounter with the patient.
--- NOTE | 2019-09-10 06:52 | Diag Imaging Result Doc PS360 ---
CHEST-1 VIEW - 09/10/2019 INDICATION: fever COMPARISON: 08/17/2019 FINDINGS: Stable mild upper lobe infiltrates bilaterally. There is unusual curvilinear density of the right hemidiaphragm. Peritoneal free air cannot be excluded. IMPRESSION: Cannot exclude peritoneal free air. Further imaging recommended. This report was discussed with Dr. Benson on 09/10/2019 at 6:45 AM and was readback. Electronically signed by Ilan Leon 09/10/2019 6:49 AM
[2019-09-10] MEDS ORDERED: ZOSYN 3.375 GM in NS 50 ML IV ONE (06:53)
[2019-09-10] MEDS ORDERED: TYLENOL PO ONE (06:53)
--- NOTE | 2019-09-10 06:59 | EKG Report ---
Test Performed on : 09/10/2019 06:38:30 AM Test Reason : HYPOTENSION Blood Pressure : / mmHG Vent. Rate : 109 BPM Atrial Rate : 115 BPM P-R Int : 000 ms QRS Dur : 146 ms QT Int : 410 ms P-R-T Axes : 000 -87 152 degrees QTc Int : 552 ms Atrial fibrillation. with rapid ventricular response. with premature ventricular or aberrantly conduc jimi complexes. Left axis deviation Right bundle branch block Possible Lateral infarct , age undetermined Abnormal ECG When compared with ECG of 25-AUG-2019 16:29, Atrial fibrillation. has replaced Sinus rhythm. Borderline criteria for Lateral infarct are now present Criteria for Inferior infarct are no longer present QT has lengthened Unconfirmed Result
[2019-09-10] MEDS ORDERED: NS 500 ML IV ONE (07:02)
[2019-09-10] MEDS ORDERED: NS 1,000 ML IV ONE (07:02)
[2019-09-10 07:04] LABS: INR 1.2; PROTIME 15.4 Seconds (11.0-16.0)
[2019-09-10 07:05] LABS: PTT 30.1 Seconds (22.3-41.8)
[2019-09-10] MEDS: NS 1,000 ML IV ONE ×2 (07:06→07:32)
[2019-09-10] MEDS ORDERED: VANCOMYCIN 1 GM/NS 1 GM/250 ML IVPB IV ONE (07:08)
[2019-09-10 07:09] LABS: EOS% 3.9 % (0.0-10.0); HEMATOCRIT 39.2 % (42.0-52.0); HEMOGLOBIN 13.2 g/dL (14.0-18.0); LYMPH# 0.46 X1000 (1.2-3.4); LYMPH% 5.9 % (20.5-51.1); MCH 31.7 PG (27-31); MCHC 33.7 g/dL (33-37); MCV 94.2 FL (81-99); MONO# 0.53 X1000 (0.11-0.59); MONO% 6.8 % (1.7-9.3); NEUT# 6.47 X1000 (1.4-6.5); NEUT% 83.4 % (42.2-75.2); PLT 83 X1000 (130-400); RBC 4.16 XMIL (4.7-6.1); RDW 14.5 % (11.5-14.5); WBC 7.76 X1000 (4.8-10.8)
[2019-09-10 07:19] LABS: ALBUMIN 3.4 g/dL (3.5-5.0); CALCIUM 8.7 mg/dL (8.8-10.2); CREATININE 1.3 mg/dL (0.7-1.2); POTASSIUM 3.5 mmol/L (3.5-5.1); TOTAL BILIRUBIN 1.55 mg/dL (0.20-1.00); TOTAL PROTEIN 6.9 g/dL (6.3-8.3)
[2019-09-10 08:08] LABS: URINE SOURCE CATH
[2019-09-10 08:31] LABS: BILIRUBIN URINE NEGATIVE (NEGATIVE); BLOOD URINE TRACE (NEGATIVE); COLOR YELLOW; GLUCOSE URINE NEGATIVE (NEGATIVE); KETONE URINE NEGATIVE (NEGATIVE); PROTEIN URINE NEGATIVE (NEGATIVE); SP GRAVITY URINE 1.015; TURBIDITY URINE HAZY (CLEAR)
[2019-09-10 08:32] LABS: LEUKOCYTES URINE SMALL (NEGATIVE); NITRITE URINE POSITIVE (NEGATIVE); UROBILINOGEN URINE NORMAL (NORMAL)
[2019-09-10 08:34] LABS: URINE WBC TNTC /HPF (<10)
[2019-09-10 08:35] LABS: UR EPITHELIAL CELLS <10 /HPF (<10); URINE BACTERIA 1+ /HPF; URINE RBC <10 /HPF (<10)
--- NOTE | 2019-09-10 09:00 | Diag Imaging Result Doc PS360 ---
EXAM: CT ABD/PELVIS W/IV CONT ONLY HISTORY: free air under diaphram TECHNIQUE: CT abdomen and pelvis with intravenous contrast COMPARISON: 03/31/2019 FINDINGS: No free air beneath the diaphragm. There is sludge or small stones within the gallbladder. No adjacent inflammation. Normal liver, spleen, and adrenal glands. There are scattered pancreatic calcifications. No large pseudocysts are adjacent inflammation. No solid renal masses. No stones or hydronephrosis. Prominent atherosclerosis. No aortic aneurysm. No bowel obstruction. No inflammation about the cecum. No abscess. There is a Giang catheter within the urinary bladder. This thickening to the wall of urinary bladder with several bladder diverticula. There are prostatic calcifications. The prostate is not enlarged. Scattered colonic diverticula. Prominent degenerative spine changes. 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 IMPRESSION: 1.No free air 2.Distended gallbladder with sludge and/or stones, but no adjacent inflammation. 3.Multiple prostatic calcifications likely from chronic pancreatitis, but no CT evidence of acute pancreatitis. 4.Colonic diverticulosis 5.Possible cystitis 6.Prominent atherosclerosis This exam was performed using automated exposure control, adjustment of mA or kV according to patient size, and/or use of iterative reconstruction technique. Electronically signed by Gianni Bonds 09/10/2019 8:58 AM
[2019-09-10] MEDS ORDERED: NS 250 ML IV ONE (09:04)
[2019-09-10] MEDS ORDERED: NS 250 ML ONE (09:14)
[2019-09-10] MEDS: LEVOPHED 8 MG in D5 1/2 NS 250 ML IV SCH ×2 (09:18→21:54)
--- NOTE | 2019-09-10 09:46 | SEPSIS: TISSUE PERFUSION ASSMT ---
Sepsis: Tissue Perfusion Assmt - Physical Exam Assessment Date: 09/10/19 Time Assessment Initialized: 09:45 Vital Signs: Last Vital Signs Temp 99.9 F H 09/10/19 09:29 Pulse 95 H 09/10/19 09:29 Resp 25 H 09/10/19 09:29 BP 91/76 09/10/19 09:29 Pulse Ox 90 L 09/10/19 09:29 Height 5 ft 11 in Weight 89.811 kg Lung Sounds:: rhonchi Heart Sounds:: Regular Capillary Refill Time: Less Than 2 Seconds Peripheral Pulse Evaluation:: radial (R): 2+, radial (L): 2+ Skin Exam:: pink, turgor good - Impression Impression:: Tissue Perfusion Adequate - Plan Plan:: See Orders (Admit)
[2019-09-10] MEDS ORDERED: DUONEB (A & A) INH PRN (10:55)
[2019-09-10] MEDS ORDERED: LR 1,000 ML IV ONE (11:00)
[2019-09-10] MEDS ORDERED: VANCOMYCIN IV PER PHARMACY MISC SCH (11:00)
[2019-09-10] MEDS: DUONEB (A & A) INH SCH ×4 (11:00→23:08)
[2019-09-10] MEDS ORDERED: VANCOMYCIN 1,250 MG in NS 250 ML IV ONE (12:00)
--- NOTE | 2019-09-10 14:01 | HISTORY AND PHYSICAL ---
CHIEF COMPLAINT: "I just feel bad all over. I have a fever." HISTORY OF PRESENT ILLNESS: This is an 84-year-old gentleman with a history of bladder cancer currently receiving radiation with his last treatment being Saturday as well as chemotherapy and radiation. His last radiation treatment was Saturday. He had his chemo pump removed a week ago, and he states that he is on a 5 week hiatus from chemo. He states that normally after having radiation he develops the chills, and they go away within a few hours. Although once chills started Saturday, they did not resolve, and he just felt worse throughout the last few days. They do report a temperature of 100.7 degrees at home, prompting his coming to the ER for evaluation. Of note, the patient was hospitalized 08/15 for pneumonia. He ultimately ended up leaving against medical advice. Mr. Morillo was admitted to [facility] 08/15 to 08/17 with pneumonia and COPD exacerbation. On the , he and his family were adamant that he be discharged in lieu of going of leaving against medical advice. He was discharged with Omnicef and doxycycline, and instructed to continue Advair, Singulair, Pepcid, and Lasix, and follow up with his primary care physician within the next 1 to 2 days. He stated that his symptoms had resolved. He felt back to his normal self until Saturday. PAST MEDICAL HISTORY: COPD, seasonal allergies, reflux, chronic arthritis, bladder cancer, atrial fibrillation, and congestive heart failure. PAST SURGICAL HISTORY: Two bladder tumor removals, right port placement, and cataract removal. SOCIAL HISTORY: He denies alcohol, tobacco, or illicit drug use. He lives with family members. ALLERGIES: He is allergic to codeine. HOME MEDICATIONS: A list will be obtained by the nursing staff, and once verified will review and restart as appropriate. REVIEW OF SYSTEMS: Discussed with patient with pertinent positives stated in the HPI. He denied any syncope, dizziness, chest pain, palpitations, nausea, vomiting, diarrhea, constipation, black or bloody vomitus or stools, any hematuria, dysuria, frequency or urgency. PHYSICAL EXAMINATION: GENERAL: This is an 84-year-old gentleman who is lying on the stretcher in the emergency room in no distress. VITAL SIGNS: Blood pressure 84/75 with a heart rate of 72, respirations 22 to 24, temperature is 100 degrees with a T-max of 101.9 degrees at 6:45 this morning, and O2 saturations are 94 to 100 percent on room air. EYES: Pupils equal, round, react to light. EOMs are intact. Sclerae are anicteric. HEENT: Head is normocephalic, atraumatic. Mucous membranes are moist. NECK: Supple with trachea midline. CARDIOVASCULAR: Irregularly irregular rate and rhythm. S1, S2 appreciated. He has no lower extremity edema. Calves are nontender bilateral. PULMONARY: Breath sounds with wheezes scattered throughout. The rhonchi that do not clear to cough. Chest rises and falls symmetrically with respiration. Chest wall is nontender to palpation. GASTROINTESTINAL: Abdomen is soft, nontender, and nondistended. Bowel sounds in all 4 quadrants. GENITOURINARY: Giang is patent to bedside bag with clear yellow urine draining. NEUROLOGIC: He is alert and oriented x3. SKIN: Warm and dry. LABORATORY: WBC is 7.7 with hemoglobin 13.2, hematocrit 39.2, and platelets 83,000. Sodium is 141, potassium 3.5, BUN 22, creatinine 1.3 with a glucose of 142. Troponin is 0.102 with lactate of 2.7. Urinalysis is nitrite positive with too numerous to count microscopic white blood cells. Blood culture and urine culture are pending. Influenza A and B are both negative. Chest x-ray reveals stable mid upper lobe infiltrates bilaterally. There is unusual curvilinear density of the right hemidiaphragm, peritoneal free air cannot be excluded. CT of the abdomen and pelvis with IV contrast revealed no free air, distended gallbladder with sludge and gallstones, but no adjacent inflammation. Multiple prostatic calcifications likely from inflammation, colonic diverticulosis, possible cystitis, and prominent atherosclerosis. INR is 1.20. ASSESSMENT AND PLAN: 1. Septic shock. The patient had received fluids per protocol. He was on Levophed. We will continue. 2. Urinary tract infection. Urine culture is pending. In review of his prior labs in June of 2019, he had a Klebsiella pneumoniae UTI which was nitrofurantoin negative. Resistant ESBL negative. We will continue Zosyn as well as vancomycin and further antibiotics will be culture driven. 3. Recent pneumonia in a patient who now has a cough with brown and green productive sputum. We will attempt to get a sputum specimen. Continue with vancomycin and Zosyn for antibiotic coverage, and further treatments will be culture driven. We will start an incentive spirometer q.4 hours when awake. 4. Acute kidney injury. He has received IV hydration. We will renal dose medications as appropriate. We will re trend his labs daily. As the patient does self catheterization, Giang is placed to assure bladder emptying. 5. COPD acute exacerbation. Steroids to taper with DuoNeb q.2 hours p.r.n. 6. Atrial fibrillation. The patient and family at first felt that atrial fibrillation was a new diagnoses. However, looking back in the patient's prior records, atrial fibrillation as mentioned. We will continue telemetry. At present, his rate is controlled. We will continue to monitor. 7. History of bladder cancer, currently receiving radiation. Chemotherapy pump was discontinued last week, and he is on a 5 to 6 week hiatus. This is followed by Dr. Zhu. We are aware. 8. Elevated troponin. This is very likely secondary to septic shock. We will continue to trend his troponins. We will obtain an echocardiogram. The patient was evaluated, and plan was discussed with Dr. Mai. Further treatments pending hospital course. Dictated by SASHA Echavarria for Jered Mai MD cc: SASHA Echavarria MD I agree with most components of history, physical, assessment and plan. A separate addendum has been dictated. [facility]
[2019-09-10] MEDS: PROTONIX IV SCH (14:05)
[2019-09-10] MEDS: LOVENOX SUBQ SCH (14:05)
[2019-09-10] MEDS: ZOSYN 3.375 GM in NS 50 ML IV SCH ×2 (14:07→19:17)
[2019-09-10] MEDS: SOLU-MEDROL IV SCH ×2 (15:00→19:16)
--- NOTE | 2019-09-10 15:10 | ECHO REPORT ---
ORDER DATE: 09/10/2019 ECHOCARDIOGRAPHIC MEASUREMENTS: 1. Interventricular septum 1.1. 2. Left ventricular posterior wall 1.1. 3. Diastolic diameter 4.2. 4. Left atrium 4.4. 5. Aorta 3.6. SUMMARY: 1. Aortic valve leaflets are calcified. 2. Mitral valve was normal. 3. Tricuspid valve was normal. 4. Mitral valve was normal. There is mild tricuspid regurgitation. Peak velocity across the tricuspid valve was 2.3 m/sec. 5. Pulmonary artery systolic pressure of 32 mmHg. There is mild mitral regurgitation. 6. Mild pulmonary regurgitation. 7. Peak velocity across the aortic valve was 4.2 m/sec with a maximum gradient of 70 mmHg, mean gradient of 46 mmHg. 8. Aortic valve area by VTI was 0.8 sq cm. There is severe aortic stenosis associated with mild aortic regurgitation. 9. Normal left ventricular cavity size. Estimated ejection fraction of 55 to 60 percent. 10. Atrial fibrillation was noted. 11. There is no pericardial effusion or obvious intracardiac mass or thrombus seen. cc: MD Mary Trotter CRNP
--- NOTE | 2019-09-10 15:39 | HISTORY AND PHYSICAL ---
ADDENDUM: I agree with most components of history and physical dictated by nurse practitioner's note. This is an addendum to it. In brief, Mr. Morillo is an 84-year-old man with remote history of tobacco, quit many, many years ago, COPD, asthma, urinary bladder cancer of invasive nature on chemo and radiation, recent history of pneumonia in early August 2019 who comes in with chief complaints of fever of 102, chills, cough with greenish expectoration, shortness of breath. In the emergency room he was found to have temperature of 101.9 degrees, atrial fibrillation with rapid ventricular rate and pulse of 100 per minute, hypotension with blood pressure of 70/40, pyuria, and chest x-ray evidence of bilateral pneumonia. He was given 2.7 L of intravenous fluids, intravenous antibiotics and hospitalist team was consulted for further management. At the time of my evaluation, Mr. Morillo still feels very weak. He is denying any shortness of breath. However, family members at bedside states he was complaining of chest pain and shortness of breath at home. He denies known history of coronary artery disease. VITALS: Temperature currently of 100, pulse 77, respiratory rate 29, blood pressure 90/45. He is saturating 96% on room air. PHYSICAL EXAMINATION: HEENT: He had nasal congestion. RESPIRATORY: He has bilateral end-expiratory wheezes and inspiratory crackles in infrascapular region. CARDIAC: His S1 is normal. S2 is masked by systolic crescendo decrescendo murmur affecting entire precordium. I could not assess radiation. No rub or gallop. ABDOMEN: Soft, obese, nontender. Active bowel sounds. EXTREMITIES: He has bilateral lower extremity edema extending up to midshin level, superficial venous congestion affecting bilateral feet and a urine catheter. NEURO: He is alert and oriented x3. CHEST: He had a right-sided chest port. LABS: Suggestive of WBC of 7000, hemoglobin 13.2, platelet of 83,000. He has kidney dysfunction, elevated total bilirubin and troponin of 0.102. He also has a prominent lactic acidosis and pyuria. ASSESSMENT AND PLAN: 1. Septic shock due to bilateral multifocal pneumonia and acute cystitis in the setting of immunocompromised status due to active chemo and radiation, status post intravenous fluid boluses. I will continue him on intravenous fluids, intravenous norepinephrine to maintain MAP more than 65 mmHg, intravenous vancomycin and intravenous Zosyn. Follow up final sputum, urine and blood culture results. Also follow up lactate. 2. Acute kidney injury likely in the setting of septic shock. Continue to monitor his basic metabolic panel. 3. Acute chronic obstructive pulmonary disease or asthma exacerbation. He does have some runny nose and nasal congestion. I will keep him on inhaled bronchodilators and start him on intravenous steroids. He is currently breathing well on room air. 4. Atrial fibrillation. His rate is currently well controlled. This could be in the setting of septic shock. I will follow up with echocardiogram performed outpatient and serial EKGs. I will also keep him on anticoagulation, keeping a close eye over his platelet count considering his thrombocytopenia. 5. History of invasive bladder cancer status post chemo and radiation. His chemotherapy is now on hold for at least 5 weeks. His last radiation was 3 days prior to current presentation. He had a right-sided chest port. DISPOSITION: The patient's condition is critical. I will transfer the patient to ICU for close hemodynamic monitoring. He also has elevated troponins which I will trend. Plan of care was discussed with the patient and his family at bedside. All of their questions have been satisfactorily answered. 32 minutes of critical care time was spent in taking care of this patient. cc: Jered Mai MD MTDD
[2019-09-10] MEDS: ADVAIR 100/50 DISKUS INH SCH (19:21)
[2019-09-11] MEDS: ZOSYN 3.375 GM in NS 50 ML IV SCH ×4 (01:14→18:02)
[2019-09-11] MEDS: SOLU-MEDROL IV SCH ×3 (04:07→18:56)
[2019-09-11 06:02] LABS: BASO# 0.01 X1000 (0.0-0.2); BASO% 0.1 % (0.0-0.8); IMM GRAN# 0.08 X1000 (0.0-0.04); IMM GRAN% 0.5 % (0.0-0.5); LYMPH# 0.77 X1000 (1.2-3.4); LYMPH% 4.7 % (20.5-51.1); MCH 31.3 PG (27-31); MCHC 33.3 g/dL (33-37); MCV 93.8 FL (81-99); MONO# 0.43 X1000 (0.11-0.59); MONO% 2.6 % (1.7-9.3); MPV 11.4 FL (7.4-10.4); NEUT# 15.26 X1000 (1.4-6.5); NEUT% 92.1 % (42.2-75.2); PLT 71 X1000 (130-400); RBC 3.52 XMIL (4.7-6.1); RDW 14.4 % (11.5-14.5); WBC 16.55 X1000 (4.8-10.8)
[2019-09-11 06:21] LABS: AGAP 13; BUN 26 mg/dL (8-22); CALCIUM 7.7 mg/dL (8.8-10.2); CHLORIDE 103 mmol/L (98-107); COSMO 285; CREATININE 1.1 mg/dL (0.7-1.2); ESTIMATED GFR > 60; GLUCOSE 218 mg/dL (70-104); POTASSIUM 2.9 mmol/L (3.5-5.1); SODIUM 137 mmol/L (136-145); TCO2 21 mmol/L (25-35)
--- NOTE | 2019-09-11 07:25 | EKG Report ---
Test Performed on : 09/11/2019 06:52:52 AM Test Reason : Follow up heart rhythm Blood Pressure : / mmHG Vent. Rate : 066 BPM Atrial Rate : 066 BPM P-R Int : 000 ms QRS Dur : 164 ms QT Int : 464 ms P-R-T Axes : 000 -78 033 degrees QTc Int : 486 ms Atrial fibrillation. Left axis deviation Right bundle branch block Inferior infarct , age undetermined Abnormal ECG When compared with ECG of 10-SEP-2019 06:38, (Unconfirmed) Significant changes have occurred Confirmed by Carlo MARTELL, Rodrick ([id number]) on 09/11/2019 11:25:10 AM
[2019-09-11] MEDS: DUONEB (A & A) INH SCH ×5 (08:02→22:58)
[2019-09-11 08:14] LABS: LYMPHS 5 % (21-51); MONO 2 % (1-9); SEGS 93 % (42-75)
[2019-09-11 08:15] LABS: ANISOCYTOSIS 1+; POLYCHROM 1+
[2019-09-11] MEDS ORDERED: POTASSIUM CHLORIDE 60 MEQ in NS 500 ML IV ONE (08:16)
[2019-09-11] MEDS: ADVAIR 100/50 DISKUS INH SCH ×2 (08:38→19:42)
[2019-09-11] MEDS: PEPCID PO SCH (09:28)
[2019-09-11] MEDS: SINGULAIR PO SCH (09:29)
[2019-09-11] MEDS: FLONASE NAS SCH (09:30)
--- NOTE | 2019-09-11 10:16 | PROGRESS NOTE ---
DATE: 09/11/2019 SUBJECTIVE: Patient reports feeling fine. Denies any shortness of breath or chest pain or palpitations. OBJECTIVE: Vital Signs: Temperature afebrile. Heart rate 79, respiratory rate 24, blood pressure 108/61, O2 saturation 98% on room air. General: This is a very pleasant 89-year-old male, lying in bed. Cardiovascular exam: Systolic murmur located in the aortic area. No murmurs, gallops, or rubs noted. Respiratory exam: Bilateral end-expiratory wheezing end- expiratory crackles in both pulmonary bases. Patient is not using any accessory muscles or having work of breathing. Abdomen. Soft, nontender to palpation. Bowel sounds present. No organomegaly. Extremities: The patient has bilateral lower extremity edema both lower extremities with superficial venous congestion affecting bilateral feet. Peripheral pulses present in both legs. Neurological: The patient is alert and oriented x3. Moves 4 extremities. Chest: The patient has a right-sided chest port. LABORATORY DATA: White cell count 16.55 hemoglobin 11.0 hematocrit 33. Platelets 71,000 with potassium 2.9. Kidney function is 1.1. Calcium 7.7. ASSESSMENT AND PLAN: 1. Septic shock due to bilateral pneumonia and urinary tract infection. Urine culture shows gram- negative rods but the final sensitivity is not back yet. At this point, we will continue with current antibiotics. In this case, vancomycin and Zosyn. Patient is on vasopressors in this case, Levophed at 5 mcg/hour. We will continue to titrate that medication down. The sputum culture is negative. Blood cultures are pending. At this point, we will continue with same management. 2. Acute kidney injury. Resolved. 3. Chronic obstructive pulmonary disease exacerbation. We will continue with DuoNeb every 4 hours. The patient is on intravenous steroids. His white cell count is a little bit elevated because of that. We will continue with the same management. 4. Atrial fibrillation. The patient continues to be on atrial fibrillation but the heart rate is well controlled. He is not found to be on any heart rate control medication like bet blockers or Cardizem. We will continue with the same management. 5. History of invasive bladder cancer status post chemo-radiation. The treatment is on hold for now because of this pneumonia this patient has and septic shock as well. We will continue to monitor. DISPOSITION: This patient will remain in the intensive care unit. He is still requiring vasopressors. We will continue to monitor this patient closely. cc: Pako Marks MD
[2019-09-11] MEDS: LOVENOX SUBQ SCH (11:48)
[2019-09-11] MEDS: PROTONIX IV SCH (11:48)
[2019-09-11] MEDS: VANCOMYCIN 1,500 MG in NS 250 ML IV SCH (14:30)
[2019-09-12] MEDS: ZOSYN 3.375 GM in NS 50 ML IV SCH ×4 (01:13→17:54)
[2019-09-12] MEDS: SOLU-MEDROL IV SCH ×4 (03:11→18:26)
[2019-09-12 05:50] LABS: BASO# 0.01 X1000 (0.0-0.2); BASO% 0.1 % (0.0-0.8); HEMATOCRIT 31.2 % (42.0-52.0); HEMOGLOBIN 10.5 g/dL (14.0-18.0); IMM GRAN# 0.04 X1000 (0.0-0.04); IMM GRAN% 0.3 % (0.0-0.5); LYMPH% 4.5 % (20.5-51.1); MCH 31.3 PG (27-31); MCHC 33.7 g/dL (33-37); MCV 93.1 FL (81-99); MONO% 3.7 % (1.7-9.3); MPV 11.4 FL (7.4-10.4); NEUT# 12.25 X1000 (1.4-6.5); NEUT% 91.4 % (42.2-75.2); PLT 71 X1000 (130-400); RBC 3.35 XMIL (4.7-6.1); RDW 14.6 % (11.5-14.5)
[2019-09-12 06:16] LABS: AGAP 12; ALBUMIN 2.4 g/dL (3.5-5.0); BUN 23 mg/dL (8-22); CALCIUM 7.8 mg/dL (8.8-10.2); CHLORIDE 105 mmol/L (98-107); COSMO 287; ESTIMATED GFR > 60; GLUCOSE 208 mg/dL (70-104); POTASSIUM 3.2 mmol/L (3.5-5.1); SODIUM 139 mmol/L (136-145); TCO2 22 mmol/L (25-35)
[2019-09-12] MEDS ORDERED: POTASSIUM CHLORIDE 60 MEQ in NS 500 ML IV ONE (07:59)
[2019-09-12] MEDS ORDERED: SODIUM PHOSPHATE 35 MMOL in NS 250 ML IV ONE (07:59)
[2019-09-12] MEDS: ADVAIR 100/50 DISKUS INH SCH ×2 (08:02→19:29)
[2019-09-12] MEDS: DUONEB (A & A) INH SCH ×5 (08:02→23:17)
[2019-09-12] MEDS: SINGULAIR PO SCH (08:19)
[2019-09-12] MEDS: PEPCID PO SCH (08:19)
[2019-09-12] MEDS: FLONASE NAS SCH (08:20)
--- NOTE | 2019-09-12 09:44 | PROGRESS NOTE ---
DATE: 09/12/2019 SUBJECTIVE: Patient reports feeling fine. No shortness of breath. No chest pain. No palpitations. OBJECTIVE: Vitals: 98.8, heart rate 83, respiratory rate 19, blood pressure 100/59, O2 saturation 100% on room air. General Examination: This is a very please 84-year-old male lying in bed in no acute distress. Cardiovascular: S1, S2 heard. Systolic murmur located in the aortic area. No gallops, or rubs noted. Respiratory: Some expiratory crackles noted in both pulmonary bases. Patient is not using any accessory muscles or having work of breathing. There is less wheezing noted today. Abdomen: Soft. Nondistended, nontender to palpation. Bowel sounds present. No organomegaly. Extremities: Patient has bilateral lower extremity edema and signs of chronic venous insufficiency. Peripheral pulses present in both legs. Neurological: Patient is alert and oriented x3. Moves 4 extremities. Chest: Patient has a right-sided chest port. LABORATORY DATA: White cell count 13.4, hemoglobin 10.5, hematocrit 31.2, platelets 71,000 with BMP that shows potassium 3.2 with phosphorus 2.0, calcium 7.8. ASSESSMENT AND PLAN: 1. Septic shock due to bilateral pneumonia and urinary tract infection. Urine culture shows Pseudomonas, but the final sensitivity of the blood cultures is not back yet. At this point, I will continue with vancomycin and Zosyn. Vasopressors have been held this morning. At this point, I will transfer this patient to our PVC unit. The patient is getting better. 2. Acute kidney injury, resolved. 3. Chronic obstructive pulmonary disease exacerbation. Clinically, this patient is feeling better, not requiring any oxygen supplementation. Will continue with DuoNeb every 4 hours as scheduled and IV steroids as well. 4. Atrial fibrillation. The patient continues to be on atrial fibrillation, but heart rate is well controlled. It is important to remark that he is not on any Cardizem or any beta blockers. Will continue to monitor. 5. History of invasive bladder cancer status post chemoradiation. Of course, treatment has been held because of his current medical conditions including septic shock. Will continue to monitor. DISPOSITION: I think at this point, patient is getting better. Will transfer this patient to PVC unit and will start physical therapy on him. cc: Pako Marks MD
[2019-09-12] MEDS: PROTONIX IV SCH (11:05)
[2019-09-12] MEDS: SODIUM CHLORIDE 0.9% INJ SCH (11:05)
[2019-09-12] MEDS: LOVENOX SUBQ SCH (11:05)
[2019-09-12] MEDS: VANCOMYCIN 1,500 MG in NS 250 ML IV SCH (13:58)
[2019-09-12] MEDS: TYLENOL PO PRN (18:08)
[2019-09-13] MEDS: ZOSYN 3.375 GM in NS 50 ML IV SCH ×2 (00:41→05:21)
[2019-09-13] MEDS: SOLU-MEDROL IV SCH ×3 (03:16→20:55)
[2019-09-13 06:43] LABS: BASO# 0.01 X1000 (0.0-0.2); BASO% 0.1 % (0.0-0.8); EOS# 0.01 X1000 (0.0-0.7); EOS% 0.1 % (0.0-10.0); HEMOGLOBIN 11.2 g/dL (14.0-18.0); IMM GRAN# 0.05 X1000 (0.0-0.04); IMM GRAN% 0.6 % (0.0-0.5); LYMPH# 0.38 X1000 (1.2-3.4); LYMPH% 4.4 % (20.5-51.1); MCH 31.2 PG (27-31); MCHC 32.9 g/dL (33-37); MCV 94.7 FL (81-99); MONO# 0.48 X1000 (0.11-0.59); MONO% 5.5 % (1.7-9.3); MPV 11.4 FL (7.4-10.4); NEUT# 7.75 X1000 (1.4-6.5); NEUT% 89.3 % (42.2-75.2); PLT 68 X1000 (130-400); RBC 3.59 XMIL (4.7-6.1); RDW 15.2 % (11.5-14.5); WBC 8.68 X1000 (4.8-10.8)
[2019-09-13 07:11] LABS: AGAP 14; ALBUMIN 2.4 g/dL (3.5-5.0); BUN 24 mg/dL (8-22); CALCIUM 8.3 mg/dL (8.8-10.2); CHLORIDE 108 mmol/L (98-107); COSMO 293; CREATININE 0.9 mg/dL (0.7-1.2); ESTIMATED GFR > 60; GLUCOSE 176 mg/dL (70-104); PHOSPHORUS 2.7 mg/dL (2.7-4.5); POTASSIUM 3.1 mmol/L (3.5-5.1); SODIUM 143 mmol/L (136-145); TCO2 21 mmol/L (25-35)
[2019-09-13 07:12] LABS: LYMPHS 2 % (21-51); MONO 2 % (1-9); SEGS 92 % (42-75)
[2019-09-13] MEDS ORDERED: POTASSIUM CHLORIDE 60 MEQ in NS 500 ML IV ONE (07:54)
[2019-09-13] MEDS: ADVAIR 100/50 DISKUS INH SCH ×2 (07:58→19:20)
[2019-09-13] MEDS: DUONEB (A & A) INH SCH ×5 (07:59→22:44)
--- NOTE | 2019-09-13 08:45 | PROGRESS NOTE ---
DATE: 09/13/2019 SUBJECTIVE: The patient reports feeling fine. Denies any shortness of breath, any chest pain, any fever or chills. OBJECTIVE: Vital Signs: Temperature 98.3 degrees, heart rate 82, respiratory rate 17, blood pressure 120/65, O2 saturation 97% on room air. General Examination: This is a 89-year-old, male, lying in bed, in no acute distress. Cardiovascular Examination: S1 and S2 heard. There is a systolic murmur in the aortic area but no gallops or rubs noted. Respiratory Examination: Minimal expiratory crackles noted in both pulmonary bases. The patient is not using any accessory muscles or having work of breathing. Definitely less wheezing noted today. Abdomen: Soft, nondistended, nontender to palpation. Bowel sounds present. No organomegaly. Extremities: The patient has bilateral lower extremity edema, signs of chronic venous insufficiency, unchanged in comparing with admission. Peripheral pulses present in both legs. Neurological Examination: The patient is alert and oriented x3. Moves 4 extremities. Chest: The patient has a right-sided chest port. No edema around it. Laboratory Data: White cell count 8.68, hemoglobin 11.2, hematocrit 34.0, platelets 68,000. BMP indicates potassium 3.1 with normal creatinine, phosphorus is within normal limits. ASSESSMENT AND PLAN: 1. Septic shock secondary to bilateral pneumonia and urinary tract infection. Urine culture and blood culture showed pseudomonas. In that regard, we are going to stop the vancomycin. We will continue with Zosyn. We are going to consult infectious disease, Dr. Luna, to see for how long he is going to need antibiotics. The patient is not on vasopressor for the last 48 hours. At this point, patient looks much more stable so we are going to transfer him to a regular room today. 2. Acute kidney injury, completely resolved. 3. Chronic obstructive pulmonary disease exacerbation. Clinically, the patient continues to improve. He is not requiring any oxygen supplementation. We will continue with DuoNeb every 4 hours scheduled and intravenous steroids that we are going to wean off. 4. Atrial fibrillation with a controlled heart rate. Patient continues to be in atrial fibrillation. He is on anticoagulation with Lovenox 1 mg/kg every 12 hours but he is not on any Cardizem or any beta-elaina. At this point, we will we will continue to monitor. 5. History for invasive bladder cancer, status post chemoradiation. Aware. Treatment has been held because of this infection. We will continue to monitor. 6. Disposition. At this point, patient is getting better. We are going to transfer this patient to a regular room today and we will consult Dr. Negro Luna from infectious disease. cc: Pako Marks MD
[2019-09-13] MEDS: FLONASE NAS SCH (08:57)
[2019-09-13] MEDS: PEPCID PO SCH (08:57)
[2019-09-13] MEDS: SINGULAIR PO SCH (10:29)
[2019-09-13] MEDS: LOVENOX SUBQ SCH (10:29)
[2019-09-13] MEDS: PROTONIX IV SCH (10:29)
--- NOTE | 2019-09-13 12:33 | Diag Imaging Result Doc PS360 ---
CHEST-1 VIEW - 09/13/2019 INDICATION: pneumonia COMPARISON: 09/10/2019 FINDINGS: Stable right chest port. Stable cardiomegaly and pulmonary vascular congestion. Stable pulmonary edema. Stable atelectasis in the lung bases. There is worsening infiltrate in the left lung base. There is improvement in the right upper lobe infiltrate. IMPRESSION: Mixed changes from prior, with overall no significant change. Electronically signed by Ilan Leon 09/13/2019 12:31 PM
[2019-09-13] MEDS: TAZIDIME 2 GM/NS 2 GM/100 ML IVPB IV SCH ×2 (13:57→20:55)
--- NOTE | 2019-09-13 14:20 | INFECTIOUS DISEASE CONSULT REP ---
DATE: 09/13/2019 CONCLUSION: Patient has a pseudomonas urinary tract infection, bacteremia, and pneumonia. RECOMMENDATIONS: I have switched the patient from Zosyn to cefepime 2 g IV every 8 hours. PRESENT ILLNESS: The was admitted to the hospital with fever and cough. He does self- catheterization of the bladder 5 times a day. The patient was not coughing up any sputum and he did not have any dysuria but he said his urine changed colors from what it normally is. The patient's laboratory studies showed a CBC with a white count of 8680, hemoglobin 11.2, platelet count of 68,000. Creatinine is 0.9. GFR is greater than 60. CT scan of the abdomen and pelvis showed no renal abnormalities. Urinalysis showed white cells and bacteria. Blood and urine are growing pseudomonas. Chest x-ray shows upper lobe infiltrates. PAST MEDICAL HISTORY/REVIEW OF SYSTEMS: Eyes and Ears: His hearing and vision are good. Respiratory: See present illness. Cardiac: No chest pain or palpitations. GI: No nausea, vomiting, or diarrhea. : The patient self-catheterizes himself 5 times a day. His urine recently had changed in color but the patient did not have dysuria. Bones, Joints, and Muscles: Patient states all of his joints hurt due to osteoarthritis. Neurologic: No seizures. No loss of motor or sensory function. PREVIOUS HOSPITALIZATIONS AND OPERATIONS: He has had cataract surgery, 2 bladder surgeries, admission for pneumonia, and placement of a right-sided Port-A-Cath. MEDICAL DISEASES: The patient is elderly. He also has bladder cancer which is being treated with chemotherapy and radiation therapy. INFECTIOUS DISEASE HISTORY: Positive for pneumonia and UTI. FAMILY HISTORY: Unknown by the patient. SOCIAL HISTORY: The patient lives in [place]. He is a . He lives alone. He does not smoke cigarettes, drink alcoholic beverages, or abuse drugs. ALLERGIES: The patient is allergic to codeine. HOME MEDICATIONS: Consist of Lasix, Combivent inhaler, meloxicam, minocycline, Singulair, nitrofurantoin, and potassium chloride. PHYSICAL EXAMINATION: Temperature is 98.3 degrees, pulse 66, respirations 15, blood pressure is 120/65. The patient is 5 feet 11 inches tall, weighs 213 pounds. General: This is somewhat ill- appearing, elderly male. He is in no acute distress. Head, Eyes, Ears, Nose, and Throat: He can hear my spoken words and see near objects. I did not see any white patches on his tongue. Neck: No meningismus. Lungs: Clear to auscultation. Cardiovascular: Heart rate is regular. Abdomen: Soft and nontender. Neurologic: The patient is alert. He can move his extremities. There is no tremor. His sensation is intact to touch. His memory as regarding his medical history is intact. Integument: No rash. Thank you for the consult. cc: Negro Luna MD
[2019-09-14] MEDS: TAZIDIME 2 GM/NS 2 GM/100 ML IVPB IV SCH ×3 (04:06→21:15)
[2019-09-14] MEDS: ADVAIR 100/50 DISKUS INH SCH ×2 (07:33→19:32)
[2019-09-14] MEDS: DUONEB (A & A) INH SCH ×5 (07:33→23:24)
[2019-09-14 07:37] LABS: HEMATOCRIT 32.5 % (42.0-52.0); HEMOGLOBIN 10.7 g/dL (14.0-18.0); IMM GRAN# 0.03 X1000 (0.0-0.04); IMM GRAN% 0.6 % (0.0-0.5); LYMPH# 0.44 X1000 (1.2-3.4); LYMPH% 8.2 % (20.5-51.1); MCHC 32.9 g/dL (33-37); MCV 94.2 FL (81-99); MONO% 7.5 % (1.7-9.3); MPV 10.9 FL (7.4-10.4); NEUT# 4.48 X1000 (1.4-6.5); NEUT% 83.7 % (42.2-75.2); PLT 72 X1000 (130-400); RBC 3.45 XMIL (4.7-6.1); RDW 15.1 % (11.5-14.5); WBC 5.35 X1000 (4.8-10.8)
[2019-09-14 08:07] LABS: AGAP 9; ALBUMIN 2.5 g/dL (3.5-5.0); BUN 27 mg/dL (8-22); CALCIUM 7.8 mg/dL (8.8-10.2); CHLORIDE 103 mmol/L (98-107); COSMO 285; CREATININE 0.9 mg/dL (0.7-1.2); ESTIMATED GFR > 60; GLUCOSE 179 mg/dL (70-104); PHOSPHORUS 2.7 mg/dL (2.7-4.5); POTASSIUM 3.8 mmol/L (3.5-5.1); SODIUM 138 mmol/L (136-145); TCO2 26 mmol/L (25-35)
[2019-09-14] MEDS: PEPCID PO SCH (08:08)
[2019-09-14] MEDS: FLONASE NAS SCH (08:09)
[2019-09-14] MEDS: SOLU-MEDROL IV SCH ×2 (08:09→21:15)
[2019-09-14] MEDS: TYLENOL PO PRN (09:57)
[2019-09-14] MEDS: SINGULAIR PO SCH (09:58)
[2019-09-14] MEDS: SODIUM CHLORIDE 0.9% INJ SCH (09:59)
[2019-09-14] MEDS: LOVENOX SUBQ SCH ×2 (10:00→11:40)
[2019-09-14] MEDS: PROTONIX IV SCH ×2 (10:00→11:40)
--- NOTE | 2019-09-14 10:17 | INFECTIOUS DISEASE PROGRESS NO ---
DATE: 09/14/2019 PRESENT ILLNESS: The patient has a Pseudomonas urinary tract infection, bacteremia, and pneumonia. MEDICATIONS: The patient is on ceftazidime 2 g IV every 8 hours. This is day 1 of treatment with that agent. Prior to that, the patient did have Zosyn for a few days. PHYSICAL EXAMINATION: Vital Signs: Temperature is 97.7 degrees, pulse 87, respirations 18, blood pressure 117/69. General: This is an ill-appearing elderly male. He is in no acute distress, however. Head, eyes, ears, nose, and throat: The patient has ulcers in his mouth which he says he gets regularly. There are also on his lips some small ulcerated areas also. Neck: No pain with movement. Lungs: Clear to auscultation. Cardiovascular: Heart rate is irregular and the patient has a systolic murmur. Abdomen: Soft and nontender. Neurologic: The patient is alert. He can move his extremities. There is no tremor. Thorax: There is a right sided portacath. The site is not red or tender. LAB AND X-RAY: The patient's CBC shows a white count of 5350, hemoglobin 10.7, platelet count 72,000. Creatinine is 0.9. GFR is greater than 60. Repeat blood cultures are pending. There is no new radiographic study. Echocardiogram shows no evidence of endocarditis. ASSESSMENT AND PLAN: The patient has a Pseudomonas urinary tract infection, bacteremia, and pneumonia. I am going to continue ceftazidime for a total of 2 weeks with day 1 being the first day that the repeat blood cultures are negative. The patient, I think, has aphthous ulcers and I have ordered Oragel to treat them. COMORBIDITIES: The patient is elderly. He has bladder cancer and he is being treated with chemotherapy and radiation therapy. cc: Negro Luna MD [facility]
[2019-09-14] MEDS: ORAJEL MAXIMUM ST 20% GEL TOP SCH ×3 (10:41→21:15)
--- NOTE | 2019-09-14 12:52 | PROGRESS NOTE ---
DATE: 09/14/2019 SUBJECTIVE: The patient reports feeling fine. No fever, no chills. OBJECTIVE: Vital Signs: Temperature 97.7 degrees, heart rate 87, respiratory rate 18, blood pressure 117/60, O2 saturation 99% on room air. General examination: This is an 84-year-old, male, lying in bed in no acute distress. Cardiovascular: S1, S2 heard. Systolic murmur noted in the aortic area, but no gallops or rubs noted. Respiratory exam: Minimal expiratory crackles noted in both pulmonary bases. Patient not using any accessory muscles or having work of breathing. Abdomen: Soft, nontender to palpation. Bowel sounds present. No organomegaly. Extremities: Patient has bilateral lower extremity edema with signs of chronic venous insufficiency, unchanged in comparing with admission. Peripheral pulses present in both legs. Neurological exam: Patient alert and oriented x3. Moves 4 extremities. Chest: Patient has a right IJ chest port; no edema around it. LABORATORY DATA: White cell count 5.35, hemoglobin 10.7, hematocrit 32.5, platelets 72. Normal BMP. ASSESSMENT AND PLAN: 1. Septic shock secondary to bilateral pneumonia and urinary tract infection. Blood culture shows Pseudomonas. Dr. Luna from Infectious Disease has started this patient on ceftazidime 2 grams intravenous every 8 hours. He plans to do two weeks of antibiotics, being the first day with treatment the day that the blood cultures become negative. We will continue to monitor. 2. Acute kidney injury, resolved. 3. Chronic obstructive pulmonary disease exacerbation. Clinically, this patient continues to improve. Not requiring any oxygen supplementation. Patient is on DuoNeb every 4 hours as scheduled. 4. Atrial fibrillation with a controlled heart rate. We will continue to monitor. Patient is on Lovenox 1 mg intravenous every 12 hours. I will switch to Eliquis or Xarelto upon discharge. 5. History of invasive bladder cancer status post chemoradiation, aware. At this point, we will continue to monitor. 6. Disposition: At this point, the patient is clinically better. He has become profoundly weak. Physical therapy evaluation recommended to go to rehabilitation facility, so social science instructor consultation has been placed. cc: Pako Marks MD
[2019-09-14] MEDS: ROBITUSSIN PO PRN (18:29)
[2019-09-15] MEDS: TAZIDIME 2 GM/NS 2 GM/100 ML IVPB IV SCH ×3 (04:32→20:30)
[2019-09-15] MEDS: ORAJEL MAXIMUM ST 20% GEL TOP SCH ×4 (04:33→20:30)
[2019-09-15 07:32] LABS: BASO# 0.01 X1000 (0.0-0.2); BASO% 0.2 % (0.0-0.8); HEMATOCRIT 34.8 % (42.0-52.0); HEMOGLOBIN 11.6 g/dL (14.0-18.0); IMM GRAN# 0.06 X1000 (0.0-0.04); IMM GRAN% 1.1 % (0.0-0.5); LYMPH% 7.1 % (20.5-51.1); MCHC 33.3 g/dL (33-37); MONO# 0.62 X1000 (0.11-0.59); MPV 11.2 FL (7.4-10.4); NEUT# 4.54 X1000 (1.4-6.5); NEUT% 80.6 % (42.2-75.2); PLT 85 X1000 (130-400); RBC 3.74 XMIL (4.7-6.1); RDW 14.9 % (11.5-14.5); WBC 5.63 X1000 (4.8-10.8)
[2019-09-15] MEDS: ADVAIR 100/50 DISKUS INH SCH ×2 (07:40→19:44)
[2019-09-15] MEDS: DUONEB (A & A) INH SCH ×4 (07:40→19:24)
[2019-09-15 08:09] LABS: AGAP 11; ALBUMIN 2.7 g/dL (3.5-5.0); BUN 24 mg/dL (8-22); CALCIUM 8.3 mg/dL (8.8-10.2); CHLORIDE 95 mmol/L (98-107); COSMO 273; CREATININE 0.9 mg/dL (0.7-1.2); ESTIMATED GFR > 60; GLUCOSE 183 mg/dL (70-104); MAGNESIUM 2.1 mg/dL (1.5-2.7); PHOSPHORUS 2.4 mg/dL (2.7-4.5); POTASSIUM 3.8 mmol/L (3.5-5.1); SODIUM 132 mmol/L (136-145); TCO2 26 mmol/L (25-35)
[2019-09-15] MEDS: SOLU-MEDROL IV SCH ×2 (08:38→20:30)
[2019-09-15] MEDS: SINGULAIR PO SCH (08:38)
[2019-09-15] MEDS: FLONASE NAS SCH (08:38)
[2019-09-15] MEDS: PEPCID PO SCH (08:38)
--- NOTE | 2019-09-15 11:52 | PROGRESS NOTE ---
DATE: 09/15/2019 SUBJECTIVE: The patient reports feeling fine, working with Physical Therapy. No fever or chills reported. OBJECTIVE: Vital Signs: Temperature 97.4 degrees, heart rate 75, respiratory rate 20, blood pressure 119/67, O2 saturation 99% on room air. General: This is an 84-year-old, male, lying in bed in no acute distress. Cardiovascular: Systolic murmur noted in the aortic area. No gallops or rubs noted. S1, S2 heard. Respiratory: Minimal expiratory crackles in both pulmonary bases. The patient is not using any accessory muscles or having work of breathing. Abdomen: Soft, nontender to palpation. Bowel sounds present. No organomegaly. Extremities: The patient has bilateral lower extremity edema with signs of chronic venous insufficiency, unchanged in comparing with admission. Peripheral pulses present in both legs. Neurological: The patient is hard of hearing. Alert and oriented x3. Moves all 4 extremities. Chest: The patient has a right chest port in place. LABORATORY DATA: White cell count 5.63, hemoglobin 11.6, hematocrit 34.8, platelets 85,000. Normal BMP. ASSESSMENT AND PLAN: 1. Septic shock secondary to bilateral pneumonia and urinary tract infection secondary to Pseudomonas. Currently, the patient is on cefazolin 2 grams intravenously every 8 hours. Plan is to complete 2 weeks of antibiotics. The blood cultures drawn 2 days ago are completely normal. 2. Acute kidney injury, resolved. 3. Chronic obstructive pulmonary disease exacerbation. Will continue with DuoNeb every 4 hours as scheduled. Not requiring any oxygen supplementation. 4. Atrial fibrillation. Rate is controlled. Will continue to monitor. The patient is on Lovenox 1 mg subcutaneously every 12 hours. Will switch to Eliquis or Xarelto upon discharge. 5. History of invasive bladder cancer, status post chemoradiation. Aware. Will continue to monitor. 6. Disposition. At this point, the patient is clinically stable, receiving antibiotics for his Pseudomonas infection. Will continue to monitor. We are basically awaiting a rehab bed for him. cc: Pako Marks MD [facility]
[2019-09-15] MEDS: LOVENOX SUBQ SCH (12:20)
--- NOTE | 2019-09-15 15:00 | INFECTIOUS DISEASE PROGRESS NO ---
DATE: 09/15/2019 PRESENT ILLNESS: Mr. Morillo has a Pseudomonas urinary tract infection, bacteremia and pneumonia. MEDICATIONS: Today, is day 2 of ceftazidime 2 g IV every 8 hours. PHYSICAL EXAMINATION: Vital Signs: Temperature 97.7 degrees, pulse rate 82, respiratory rate 22, blood pressure 130/72, and O2 saturation is 100% on room air. General: This is a chronically ill- appearing elderly gentleman. He is lying in bed currently in no acute distress. HEENT: Atraumatic, normocephalic. Oral mucous membranes are pink and moist. He does have some mild ulcers in his mouth. These do not appear to be candidiasis. Conjunctivae are pink. Neck: Supple. Trachea is midline. Cardiovascular: Irregularly irregular with atrial fibrillation on the monitor and significant systolic murmur. Respiratory: Lung sounds have scattered wheezes bilaterally. No work of breathing noted. Abdomen: Soft, round and nontender. Bowel sounds are active. Neurologic: He is awake, alert, and appropriate. Able to move all extremities in bed independently. Integumentary: Skin is warm and dry. Port-A-Cath to the right chest, without edema or erythema. LABORATORY AND X-RAY: Today, his white count is 5.63, hemoglobin 11.6, and platelet count 85,000. Creatinine is 0.9. Estimated GFR is greater than 60. Blood and urine cultures have both grown Pseudomonas aeruginosa. There are 2 sets of blood cultures drawn on the which are preliminary. No imaging reports today. ASSESSMENT AND PLAN: Mr. Morillo is being treated for a Pseudomonas urinary tract infection, bacteremia, and pneumonia. Today is day 2 of ceftazidime, which we will continue at this time. We are still awaiting a sterile set of blood cultures for start of treatment date. We will get a chest x-ray in the morning to assess his pneumonia. At this point, his white blood cell count has been normal, and he has been afebrile. Today, he states he is feeling better. The plan is to send him to rehab bed when available. However, we will need a set of sterile blood cultures first. Because there is a Pseudomonas, he will need his IV ceftazidime every 8 hours for a total of 14 days from the first day of sterile blood cultures. These plans have been discussed with and recommended by Dr. Luna. COMORBIDITIES: for Mr. Morillo include that he is elderly, with a history of self catheterization, right-sided Port-A-Cath, atrial fibrillation, chronic obstructive pulmonary disease, and bladder cancer with chemotherapy and radiation. Dictated by SASHA Hanley for Negro Luna MD cc: Negro Luna MD [facility]
[2019-09-16] MEDS: DUONEB (A & A) INH SCH ×6 (00:23→23:53)
[2019-09-16] MEDS: TAZIDIME 2 GM/NS 2 GM/100 ML IVPB IV SCH ×3 (06:19→20:14)
[2019-09-16] MEDS: PROTONIX PO SCH (06:19)
[2019-09-16] MEDS: ORAJEL MAXIMUM ST 20% GEL TOP SCH ×4 (06:19→20:19)
--- NOTE | 2019-09-16 07:10 | Diag Imaging Result Doc PS360 ---
EXAM: CHEST-PORTABLE HISTORY: pneumonia TECHNIQUE: Single view COMPARISON: 09/13/2019 FINDINGS: Poor inspiratory effort. No cardiomegaly. No change in the right jugular portacatheter. No pneumothorax. No pleural effusions identified. Interstitial markings are less pronounced. IMPRESSION: Interval improvement Electronically signed by Gianni Bonds 09/16/2019 7:08 AM
[2019-09-16 07:14] LABS: BASO# 0.01 X1000 (0.0-0.2); BASO% 0.2 % (0.0-0.8); HEMATOCRIT 35.8 % (42.0-52.0); IMM GRAN# 0.08 X1000 (0.0-0.04); IMM GRAN% 1.5 % (0.0-0.5); LYMPH% 13.2 % (20.5-51.1); MCH 31.3 PG (27-31); MCHC 33.5 g/dL (33-37); MCV 93.2 FL (81-99); MONO# 0.31 X1000 (0.11-0.59); MONO% 5.8 % (1.7-9.3); NEUT# 4.21 X1000 (1.4-6.5); NEUT% 79.3 % (42.2-75.2); PLT 102 X1000 (130-400); RBC 3.84 XMIL (4.7-6.1); RDW 14.9 % (11.5-14.5); WBC 5.31 X1000 (4.8-10.8)
[2019-09-16 07:29] LABS: AGAP 12; ALBUMIN 2.7 g/dL (3.5-5.0); BUN 21 mg/dL (8-22); CALCIUM 8.2 mg/dL (8.8-10.2); CHLORIDE 97 mmol/L (98-107); COSMO 281; CREATININE 0.8 mg/dL (0.7-1.2); ESTIMATED GFR > 60; GLUCOSE 179 mg/dL (70-104); PHOSPHORUS 2.6 mg/dL (2.7-4.5); POTASSIUM 4.2 mmol/L (3.5-5.1); SODIUM 137 mmol/L (136-145); TCO2 28 mmol/L (25-35)
[2019-09-16] MEDS: ADVAIR 100/50 DISKUS INH SCH ×2 (07:55→19:28)
[2019-09-16] MEDS: SOLU-MEDROL IV SCH ×2 (10:34→20:14)
[2019-09-16] MEDS: PEPCID PO SCH (10:34)
[2019-09-16] MEDS: LOVENOX SUBQ SCH (10:34)
[2019-09-16] MEDS: SINGULAIR PO SCH (10:35)
[2019-09-16] MEDS: FLONASE NAS SCH (10:39)
--- NOTE | 2019-09-16 13:16 | PROGRESS NOTE ---
DATE: 09/16/2019 SUBJECTIVE: The patient reports feeling fine. No complaints at this time. He continues to work with physical therapy. OBJECTIVE: Vital Signs: Temperature 98.1 degrees, heart rate 77, respiratory rate 19, blood pressure 116/52, O2 saturation 100% on room air. General: This is a 89-year-old male, lying in bed in no acute distress. Cardiovascular: Systolic murmur noted in the aortic area. No gallops or rubs noted. S1-S2 heard. Respiratory: Minimal expiratory crackles in both pulmonary bases. Patient not using any accessory muscles or having work of breathing. Abdomen: Soft, nontender to palpation. Bowel sounds present. No organomegaly. Extremities: The patient has bilateral lower extremity edema, with signs of chronic venous insufficiency, unchanged in comparing with admission. Peripheral pulses present in both legs. Neurologic: The patient is hard of hearing. Alert and oriented x3. Moves all 4 extremities. Chest: The patient has a right chest port in place. LABORATORY DATA: Reviewed. ASSESSMENT AND PLAN: 1. Septic shock secondary to bilateral pneumonia, urinary tract infection secondary to Pseudomonas bacteremia. Clinically this patient is doing fine. Currently, he is on ceftazidime 2 g IV q.8 hours. We will complete 2 weeks of antibiotics. The culture has been checked and those are negative after 48 hours. We will continue to monitor. 2. Acute kidney injury, resolved. 3. Chronic obstructive pulmonary disease exacerbation. We will continue with DuoNeb every 4 hours as scheduled. Not requiring any oxygen supplementation. 4. Atrial fibrillation. Rate controlled. We will continue to monitor. I think at discharge we will switch Eliquis to Xarelto. 5. History of invasive bladder cancer, status post chemoradiation, aware. 6. Disposition. At this point, the patient is clinically stable. Proceed on antibiotics for his Pseudomonas infection, and awaiting rehab bed. cc: Pako Marks MD
--- NOTE | 2019-09-16 16:32 | INFECTIOUS DISEASE PROGRESS NO ---
DATE: 09/16/2019 PRESENT ILLNESS: The patient has a pseudomonas urinary tract infection, bacteremia, and pneumonia. MEDICATIONS: This is day 3 of treatment with ceftazidime. Day 1 was the first day that the patient's blood cultures were sterile. PHYSICAL EXAMINATION: Vital Signs: Temperature is 98.3 degrees, pulse 77, respirations 17, blood pressure 113/61. General: This is a chronically ill-appearing, elderly male. He is in no acute distress. Head, Eyes, Ears, Nose, and Throat: He can hear my spoken words and see near objects. I did not see any white patches in his mouth. He was given Oragel yesterday for some aphthous ulcers and he says that it is much better and these ulcers are clearing. Neck: No stiffness. Lungs: Clear to auscultation. Cardiovascular: Heart rate is irregular. Abdomen: Soft and nontender. Neurologic: The patient is alert. He can move his extremities. There is no tremor. Thorax: Right chest portacath site is not red or purulent. LAB AND X-RAY: Chest x-ray does not show any further pneumonia. The creatinine is 0.8. GFR is greater than 60. CBC shows a white count of 5310, hemoglobin 12, platelet count 102,000. ASSESSMENT AND PLAN: The patient has a pseudomonas urinary tract infection, bacteremia, and pneumonia. He is on day 3 of ceftazidime. He will need 11 more days of ceftazidime to complete a 2 week treatment course with ceftazidime. I also have ordered immunoglobulin levels of the patient. COMORBIDITIES: The patient is elderly. He does self catheterization at home. He also has a right-sided Port-A-Cath. He has atrial fibrillation, chronic obstructive pulmonary disease, bladder cancer which is treated with chemotherapy and radiation. cc: Negro [facility] MD [facility]
[2019-09-16] MEDS: TYLENOL PO PRN (20:14)
[2019-09-16] MEDS: ROBITUSSIN PO PRN (20:14)
[2019-09-17] MEDS: ORAJEL MAXIMUM ST 20% GEL TOP SCH ×2 (03:45→10:22)
[2019-09-17] MEDS: TAZIDIME 2 GM/NS 2 GM/100 ML IVPB IV SCH (04:30)
[2019-09-17] MEDS: DUONEB (A & A) INH SCH ×3 (07:41→16:09)
[2019-09-17] MEDS: ADVAIR 100/50 DISKUS INH SCH (07:42)
[2019-09-17 07:50] LABS: BASO# 0.01 X1000 (0.0-0.2); BASO% 0.2 % (0.0-0.8); HEMOGLOBIN 12.2 g/dL (14.0-18.0); IMM GRAN% 2.1 % (0.0-0.5); LYMPH# 0.57 X1000 (1.2-3.4); LYMPH% 12.2 % (20.5-51.1); MCV 93.9 FL (81-99); MONO# 0.18 X1000 (0.11-0.59); MONO% 3.9 % (1.7-9.3); MPV 11.2 FL (7.4-10.4); NEUT% 81.6 % (42.2-75.2); PLT 116 X1000 (130-400); RBC 3.94 XMIL (4.7-6.1); RDW 15.1 % (11.5-14.5); WBC 4.66 X1000 (4.8-10.8)
[2019-09-17 08:42] LABS: AGAP 11; ALBUMIN 2.9 g/dL (3.5-5.0); BUN 22 mg/dL (8-22); CALCIUM 8.2 mg/dL (8.8-10.2); CHLORIDE 94 mmol/L (98-107); COSMO 276; CREATININE 0.9 mg/dL (0.7-1.2); ESTIMATED GFR > 60; GLUCOSE 172 mg/dL (70-104); POTASSIUM 4.1 mmol/L (3.5-5.1); SODIUM 134 mmol/L (136-145); TCO2 29 mmol/L (25-35)
[2019-09-17] MEDS: PROTONIX PO SCH (10:19)
[2019-09-17] MEDS: SOLU-MEDROL IV SCH (10:21)
[2019-09-17] MEDS: FLONASE NAS SCH (10:22)
[2019-09-17] MEDS: PEPCID PO SCH (10:24)
[2019-09-17] MEDS: SINGULAIR PO SCH (10:24)
[2019-09-17] MEDS: TYLENOL PO PRN (10:29)
--- NOTE | 2019-09-17 11:27 | DISCHARGE SUMMARY ---
ADMISSION DATE: 09/10/2019 DISCHARGE DATE: 09/17/2019 ADMISSION DIAGNOSES: 1. Septic shock. 2. Urinary tract infection. 3. Recent pneumonia. 4. Acute kidney injury. 5. Chronic obstructive pulmonary disease exacerbation. 6. Atrial fibrillation. 7. History of bladder cancer. 8. Elevated troponin. DISCHARGE DIAGNOSES: 1. Septic shock secondary to bilateral pneumonia, urinary tract infection secondary to Pseudomonas bacteremia. 2. Acute kidney injury resolved. 3. Chronic obstructive pulmonary disease exacerbation. 4. Atrial fibrillation, rate controlled on Xarelto. 5. History of invasive bladder cancer. CONSULTATIONS: Infectious Disease Dr. Luna. SURGERIES AND PROCEDURES: None. HOSPITAL COURSE: Mr. Jayesh Morillo is a 89-year-old male with a history of bladder cancer receiving radiation with treatments as well as chemo and radiation prior to admission. Normally, he has fevers and chills after radiation, but when they started up this time, they never went away. He presented with a temperature of 100.7 degrees. He also had been treated for pneumonia back in July. At that time, he left against medical advice. Then, he was treated for COPD during that time as well. He showed signs of septic shock and low blood pressure despite having IV fluid hydration so he was started on Levophed. He was initiated on broad- spectrum antibiotics. Sputum culture was obtained. So this time, he had blood cultures as well, but those ended up being positive with Pseudomonas aeruginosa. Urine was positive for Pseudomonas aeruginosa. The sputum was negative. Dr. Negro Luna was consulted on the , and switched him from Zosyn to cefepime 2 g IV every 8 hours. He has improved, and he is now stable for discharge to rehab. DISCHARGE VITAL SIGNS: Temperature 97.8 degrees, heart rate 79, respiratory rate 20, blood pressure 111/53, and O2 saturation 100% on room air. DISCHARGE LABORATORY DATA: White blood cells 4000, hemoglobin 12, hematocrit 37, and platelet count 116,000. Sodium 134, potassium 4.1, BUN 22, creatinine 0.9, glucose 172, calcium 8.2, and albumin is 2.9. He had an IgG performed. They were all pretty normal. IgG was actually a little on the elevated side. On the , the urine was positive for Pseudomonas aeruginosa, and the blood was as well. Their were sensitivities, and he may have had resistance to levofloxacin and indeterminate resistance to gentamicin, and that was in the blood. In the urine, it was only resistant to levofloxacin. IMAGING: On the , chest x-ray cannot exclude peritoneal free air. On abdominal pelvic CT, there was no free air. Distended gallbladder, sludge and stones. No inflammation. Multiple prostatic calcifications likely from chronic pancreatitis, but no evidence of acute pancreatitis. He had colonic diverticulosis with possible cystitis, and prominent atherosclerosis. His echocardiogram on the showed pulmonary pressure of 32, and EF 55 to 60 percent. He was still in atrial fibrillation. Chest x-ray on mixed changes from prior. Overall, no significant change. Then again on the , an interval improvement was seen. On EKG, there is 2 of them, one with atrial fibrillation with RVR and rate 109, and the other one on the with atrial fibrillation and rate 66. DISCHARGE MEDICATIONS: 1. Advair 100/50 1 puff inhaled twice a day. 2. Combivent 1 puff inhaled 4 times a day. 3. Cranberry juice extraction 500 mg p.o. daily. 4. Pepcid 40 mg p.o. daily. 5. Flonase daily. 6. Potassium chloride 20 mEq p.o. daily. 7. Lasix 20 mg p.o. daily. 8. Lidex cream topical twice a day p.r.n. 9. Mobic 15 mg p.o. twice a day p.r.n. 10. Minocycline 50 mg p.o. twice a day p.r.n. 11. MiraLAX 17 g p.o. daily. 12. Nitrofurantoin 100 mg p.o. daily. 13. Montelukast Chewables 10 mg p.o. daily. 14. Tylenol Arthritis 1300 mg p.o. t.i.d. p.r.n. 15. It may be that he may actually be placed on ceftazidime by report for a total of 14 days or 2 weeks treatment. DISCHARGE DIET: Regular. DISCHARGE ACTIVITY: As tolerated with Physical Therapy. DISCHARGE PHYSICIAN FOLLOW UP: Dr. Morel and Dr. Luna. DISCHARGE INSTRUCTIONS: Per Rehab Facility. Wound care for the rash on his buttock, skin protectant paste twice a day, and p.r.n. for soiling on the gluteal area. DISCHARGE DISPOSITION: I believe it will be [facility]. Dictated by SASHA Nino for Pako Marks MD Addendum: Patient seen and examined by myself. Agree with SASHA note. It reflects my assessment and plan. Patient is being discharged in stable condition. Will be seen by PCP and ID in two weeks upon rehab discharge. cc: SASHA Nino MD [facility]
[2019-09-17 11:36] VITALS: BP 107/61
[2019-09-17] MEDS: LOVENOX SUBQ SCH (12:09)
[2019-09-17] MEDS ORDERED: TAZIDIME 2 GM/NS 2 GM/100 ML IVPB IV SCH (16:00)
== END 2019-09-17 16:30 | DRG 871 ==
LOC: SUPCPDRO → ED 06:22 → ICU 11:30 → SUATTDRO 11:30 → 2N 09-12 18:40 → 3N 09-13 12:11
PROVIDERS: ATTEND Internal Medicine

== ENCOUNTER 2019-09-29 14:01 | Inpatient (IN) ==
--- NOTE | 2019-09-29 14:50 | Diag Imaging Result Doc PS360 ---
EXAM: CHEST-PORTABLE 09/29/2019 HISTORY: ams TECHNIQUE: AP portable upright at 1438 COMMENT: The inspiration is slightly less optimal than on 09/16/2019. There continues to be some increased interstitial opacities particularly in the left lower lobe and right upper lobe. IMPRESSION: Stable chest. Electronically signed by Neil Miranda 09/29/2019 2:48 PM
--- NOTE | 2019-09-29 15:36 | Diag Imaging Result Doc PS360 ---
EXAM: CT HEAD W/O CONTRAST 09/29/2019 HISTORY: ams TECHNIQUE: This exam was performed using automated exposure control, adjustment of mA or kV according to patient size, and/or use of iterative reconstruction technique. COMMENT: There is no evidence of mass effect, bleed, or abnormal extra-axial fluid collection. There are calcifications in the vertebral and internal carotid arteries bilaterally. There is partial opacification of the right maxillary sinus. There is also opacification of anterior ethmoid air cells with mucosal thickening throughout the left frontal sinus. The calvarium is intact. IMPRESSION: No evidence of acute intracranial disease. Sinusitis. Electronically signed by Neil Miranda 09/29/2019 3:33 PM
[2019-09-29 15:52] LABS: BASO# 0.05 X1000 (0.0-0.2); BASO% 0.8 % (0.0-0.8); EOS# 0.03 X1000 (0.0-0.7); EOS% 0.5 % (0.0-10.0); HEMATOCRIT 35.1 % (42.0-52.0); HEMOGLOBIN 11.6 g/dL (14.0-18.0); IMM GRAN# 0.03 X1000 (0.0-0.04); IMM GRAN% 0.5 % (0.0-0.5); INR 4.01; LYMPH# 0.61 X1000 (1.2-3.4); LYMPH% 9.2 % (20.5-51.1); MCH 31.5 PG (27-31); MCV 95.4 FL (81-99); MONO# 0.67 X1000 (0.11-0.59); MONO% 10.1 % (1.7-9.3); MPV 10.9 FL (7.4-10.4); NEUT# 5.24 X1000 (1.4-6.5); NEUT% 78.9 % (42.2-75.2); PLT 88 X1000 (130-400); PTT 44.8 Seconds (22.3-41.8); RBC 3.68 XMIL (4.7-6.1); WBC 6.63 X1000 (4.8-10.8)
[2019-09-29 16:04] LABS: PROTIME 40.4 Seconds (11.0-16.0)
[2019-09-29 16:05] LABS: AGAP 13; ALB/GLOB RATIO 0.8; ALBUMIN 2.6 g/dL (3.5-5.0); ALKALINE PHOSPHATASE 92 U/L (32-122); BUN 12 mg/dL (8-22); CALCIUM 8.6 mg/dL (8.8-10.2); CHLORIDE 95 mmol/L (98-107); CK PROFILE 66 U/L (24-204); COSMO 271; CREATININE 0.9 mg/dL (0.7-1.2); ESTIMATED GFR > 60; GLUCOSE 151 mg/dL (70-104); GOT 28 U/L (10-34); GPT 19 U/L (10-44); MAGNESIUM 1.6 mg/dL (1.5-2.7); POTASSIUM 3.3 mmol/L (3.5-5.1); SODIUM 134 mmol/L (136-145); TCO2 26 mmol/L (25-35); TOTAL BILIRUBIN 1.61 mg/dL (0.20-1.00); TOTAL PROTEIN 5.7 g/dL (6.3-8.3)
[2019-09-29] MEDS ORDERED: NS 1,000 ML IV ONE ×2 (16:06→17:58)
[2019-09-29 17:46] LABS: URINE SOURCE CATH
[2019-09-29] MEDS ORDERED: VANCOMYCIN 1 GM/NS 1 GM/250 ML IVPB IV ONE (17:47)
[2019-09-29] MEDS ORDERED: MAXIPIME 1 GM in NS 50 ML IV ONE (17:47)
[2019-09-29 17:51] LABS: BILIRUBIN URINE NEGATIVE (NEGATIVE); BLOOD URINE SMALL (NEGATIVE); COLOR YELLOW; GLUCOSE URINE NEGATIVE (NEGATIVE); KETONE URINE NEGATIVE (NEGATIVE); LEUKOCYTES URINE LARGE (NEGATIVE); NITRITE URINE NEGATIVE (NEGATIVE); PH URINE 6.5; PROTEIN URINE NEGATIVE (NEGATIVE); TURBIDITY URINE CLEAR (CLEAR); UROBILINOGEN URINE NORMAL (NORMAL)
[2019-09-29 17:54] LABS: UR EPITHELIAL CELLS <10 /HPF (<10); URINE BACTERIA NEGATIVE /HPF; URINE WBC TNTC /HPF (<10)
[2019-09-29] MEDS ORDERED: ROCEPHIN 1 GM in NS 50 ML IV ONE (17:57)
[2019-09-29 18:01] LABS: URINE YEAST PRESENT
[2019-09-29] MEDS ORDERED: STERILE WATER INJ. INJ ONE (18:46)
[2019-09-29] MEDS ORDERED: GEODON IM ONE (18:46)
--- NOTE | 2019-09-30 10:23 | Diag Imaging Result Doc PS360 ---
CT THORAX W/O CONTRAST - 09/30/2019 INDICATION: cough, interstitial fibrosis. ??pneumonia COMPARISON: 09/29/2019, 08/15/2019 FINDINGS: There is a right chest port in good position. Heart size is normal with no pericardial effusion. Great vessels are normal. There is no adenopathy. Upper abdominal images are unremarkable. There is moderate peripheral interstitial pulmonary fibrosis, worse in the lung bases. This is stable to slightly progressive since prior. Major airways are all patent. No other consolidations. There is syndesmophyte formation all throughout the thoracic spine. This may suggest enclosing spondylitis. No acute fractures. IMPRESSION: 1. Slight progression in the moderate pulmonary fibrosis. 2. Questionable ankylosing spondylitis. This exam was performed using automated exposure control, adjustment of mA or kV according to patient size, and/or use of iterative reconstruction technique Electronically signed by Ilan Leon 09/30/2019 10:24 AM
[2019-09-30] MEDS ORDERED: VANCOMYCIN IV PER PHARMACY MISC SCH (11:00)
[2019-09-30 11:17] LABS: BASO# 0.03 X1000 (0.0-0.2); BASO% 0.7 % (0.0-0.8); EOS# 0.12 X1000 (0.0-0.7); EOS% 2.9 % (0.0-10.0); HEMATOCRIT 32.9 % (42.0-52.0); HEMOGLOBIN 10.7 g/dL (14.0-18.0); IMM GRAN# 0.02 X1000 (0.0-0.04); IMM GRAN% 0.5 % (0.0-0.5); LYMPH# 0.78 X1000 (1.2-3.4); LYMPH% 18.6 % (20.5-51.1); MCH 31.3 PG (27-31); MCHC 32.5 g/dL (33-37); MCV 96.2 FL (81-99); MONO# 0.45 X1000 (0.11-0.59); MONO% 10.7 % (1.7-9.3); MPV 10.7 FL (7.4-10.4); NEUT# 2.79 X1000 (1.4-6.5); NEUT% 66.6 % (42.2-75.2); PLT 80 X1000 (130-400); RBC 3.42 XMIL (4.7-6.1); RDW 17.4 % (11.5-14.5); WBC 4.19 X1000 (4.8-10.8)
[2019-09-30 11:27] LABS: AGAP 10; ALB/GLOB RATIO 0.8; ALBUMIN 2.2 g/dL (3.5-5.0); ALKALINE PHOSPHATASE 84 U/L (32-122); BUN 13 mg/dL (8-22); CHLORIDE 108 mmol/L (98-107); COSMO 289; CREATININE 0.7 mg/dL (0.7-1.2); ESTIMATED GFR > 60; GLUCOSE 106 mg/dL (70-104); GOT 19 U/L (10-34); GPT 15 U/L (10-44); POTASSIUM 3.1 mmol/L (3.5-5.1); SODIUM 145 mmol/L (136-145); TCO2 27 mmol/L (25-35); TOTAL BILIRUBIN 1.15 mg/dL (0.20-1.00); TOTAL PROTEIN 5.1 g/dL (6.3-8.3)
[2019-09-30] MEDS: DUONEB (A & A) INH SCH ×4 (11:31→23:14)
[2019-09-30 12:53] LABS: INR 2.64; PROTIME 28.9 Seconds (11.0-16.0)
[2019-09-30] MEDS ORDERED: VANCOMYCIN 2 GM in NS 500 ML IV ONE (13:00)
[2019-09-30] MEDS: MAXIPIME 1 GM in NS 50 ML IV SCH ×2 (13:23→21:02)
[2019-09-30] MEDS: NS 1,000 ML IV SCH (13:23)
--- NOTE | 2019-09-30 13:38 | HISTORY AND PHYSICAL ---
HISTORY OF PRESENT ILLNESS: Mr. Jayesh Morillo is an 84-year-old male who has a history of multiple medical conditions including COPD, seasonal allergies, gastroesophageal reflux disease, chronic arthritis, bladder cancer, atrial fibrillation, congestive heart failure. The patient presents to the emergency department because of a change in his mental status. No history could be obtained from the patient. The patient's UA showed a picture of possible urinary tract infection with large amount of leukocytes and numerous WBCs per high-power field. Chest x-ray shows evidence of interstitial opacities particularly in the left lower lobe as well as right upper lobe. CT scan of the brain did not reveal any acute intracranial process except for some sinusitis. The patient has now been admitted for further management. PAST MEDICAL HISTORY: 1. COPD. 2. Seasonal allergies. 3. Reflux. 4. Chronic arthritis. 5. Bladder cancer. 6. Atrial fibrillation. 7. Congestive heart failure. PAST SURGICAL HISTORY: He has had bladder tumor removal, right port placement as well as cataract removal. SOCIAL HISTORY: The patient is a resident of a senior care facility. No history of fall. No documented history of alcohol or cigarette smoking or drug use. ALLERGIES: Codeine. MEDICATIONS: 1. Advair 100/50, 1 puff twice a day. Combivent 1 puff 4 times a day. 2. Cranberry juice extraction 500 mg p.o. daily. Pepcid 40 mg p.o. daily. Flonase as directed. 3. Potassium chloride 20 mEq p.o. daily, Lasix 20 mg p.o. daily. Lidex cream topical twice a day. Mobic 50 mg p.o. twice a day. Minocycline 50 mg p.o. twice a day. 4. MiraLAX 17 g daily, nitrofurantoin 100 mg p.o. daily, montelukast chewable 10 mg p.o. daily. Tylenol Arthritis 1300 mg p.o. 3 times a day p.r.n. REVIEW OF SYSTEMS: Could not be obtained from the patient because of his mental status. PHYSICAL EXAMINATION: VITAL SIGNS: Temperature 97.7 degrees, pulse 52, blood pressure 84/42, oxygen saturation is 99%. Respiratory rate is 17. HEENT: Patient is atraumatic, normocephalic. He is anicteric. The patient does have some blood in the oral cavity. NECK: No lymphadenopathy or thyromegaly. No jugular venous distention. Neck is supple. CARDIOVASCULAR: Patient does have a possible systolic murmur. RESPIRATORY SYSTEM: Good air entry bilaterally. ABDOMEN: Soft, nontender. No masses felt. EXTREMITIES: He has edema in the lower extremities. There is also evidence of some fresh wounds in both lower extremities which are dressed. CENTRAL NERVOUS SYSTEM: The patient is poorly responsive. No obvious focal deficits elicited. LABORATORY DATA: WBC 6.6, hematocrit is 35.4, with a platelet count of 88,000. INR is 4.01, sodium is 134, potassium is 3.3, chloride is 95, bicarbonate 26, BUN is 12, creatinine 0.9. UA shows large amount of leukocytes with numerous WBCs. CT scan of the brain, no acute findings except for sinusitis. ASSESSMENT AND PLAN: 1. Septic shock. Maintain patient on intravenous fluids. Blood pressure continues to remain low. We will need to transfer to the intensive care unit and use pressors. Obtain cultures. Start patient on empiric antibiotics. 2. Urinary tract infection. Follow up on urine culture. Continue antibiotics. 3. Healthcare-associated pneumonia. Check sputum culture. Maintain patient on appropriate antibiotics for health care associated pneumonia. 4. Altered mental status (encephalopathy), probably related to the patient's infective process. We will continue to follow up on the patient's clinical progression. If the patient's neurologic status does not improve will need Neurology evaluation. 5. Chronic obstructive pulmonary disease. Nebulized bronchodilators as needed. 6. History of bladder cancer. Consult with oncology. 7. Hypokalemia. Replace potassium. Check magnesium level. 8. Atrial fibrillation. Hold off on anticoagulation in light of elevated INR level. Maintain patient on a rate-controlling agent if needed. 9. Deep vein thrombosis prophylaxis. Sequential compression devices. 10. Gastrointestinal prophylaxis. Proton pump inhibitor. cc: Holger Zaldivar MD MTDD
--- NOTE | 2019-09-30 13:54 | EKG Report ---
Test Performed on : 09/30/2019 1:46:54 PM Test Reason : abnormal telemetry reading Blood Pressure : / mmHG Vent. Rate : 067 BPM Atrial Rate : 072 BPM P-R Int : 208 ms QRS Dur : 166 ms QT Int : 484 ms P-R-T Axes : 067 -77 060 degrees QTc Int : 511 ms Sinus rhythm. with premature supraventricular complexes. and premature ventricular complexes. or fusi on complexes Left axis deviation Right bundle branch block Left ventricular hypertrophy with repolarization abnormality Inferior infarct (cited on or before 08-MAY-2018) Abnormal ECG When compared with ECG of 11-SEP-2019 06:52, Sinus rhythm. has replaced Atrial fibrillation. Confirmed by Jair MARTELL, Pratik Harrington ([id number]) on 10/01/2019 12:23:26 PM
[2019-09-30] MEDS ORDERED: ROCEPHIN 1 GM in NS 50 ML IV SCH (17:00)
[2019-09-30] MEDS: POTASSIUM CHLORIDE 20 MEQ/SWI 20 MEQ/100 ML IVPB IV SCH ×2 (17:13→21:01)
--- NOTE | 2019-09-30 19:36 | PROGRESS NOTE ---
DATE: 09/30/2019 INTERVAL HISTORY: The patient had a significant agitation last night, ended up being given Geodon to calm him down. Pretty somnolent since then. Had some bleeding from his mouth. Discussed with nursing and the patient's son. Apparently, he has a history of deciding that his soft palate itches and digging at it with his fingernails. This did occur last night, and it does appear to be where the bleeding is from. It was slightly oozing initially, and it did seem to be decreasing later. Over the course of the day, the patient's mental status did improve somewhat, although he remained pretty somnolent. The patient was noted to have irregular heart rhythm, which was initially thought to be his previously diagnosed atrial fibrillation, but on review of telemetry appears to be an irregular rhythm of uncertain significance. Cardiology consult was ordered, and they are planning on seeing the patient. The patient has had some mildly low blood pressure. Fluids were put in place, and repeat blood pressure does appear to be somewhat improved. It was down as low as 84/42 at one point, but back up to 121/90 now. No other acute events. REVIEW OF SYSTEMS: Unable to obtain secondary to the patient's mental status. LABS: WBC 4.19, hemoglobin 10.7, hematocrit 32.9, platelets 80,000. INR 2.64 down from 4. Sodium 145, potassium 3.1, chloride 108, BUN 13, creatinine 0.7, glucose 106, bilirubin 1.15. Troponin 58, minimally changed from previous 44. IMAGING: CT chest with slight progression and moderate pulmonary fibrosis and possible ankylosing spondylitis, but no acute process. No evidence of pneumonia. Head CT with sinusitis, but no acute disease. VITAL SIGNS: T-max 98.6 degrees, pulse 79, respirations 16, blood pressure 121/90, and O2 saturation 100% on 2 liters by nasal cannula. PHYSICAL EXAMINATION: General: No acute distress. Chronically ill appearing. HEENT: Normocephalic. Slightly dry mucous membranes. Dried and clotted blood in and around the mouth, most significant on the posterior upper palate. Cardiovascular: Irregular rhythm. Normal rate. Very loud 4/6 murmur audible everywhere. Pulmonary: Scattered rhonchi, but largely clear to auscultation. Mildly decreased air entry. Abdomen: Soft, nontender, nondistended. Bowel sounds positive. Extremities: Peripheral pulses intact. No clubbing or cyanosis. Neurologic: Exam limited by the patient's mental status. He does open eyes and track to all quadrants when stimulated, but immediately falls back asleep afterwards. Appears to move all extremities non- purposefully, intermittently. Psychiatric: Asleep but arousable. Follows no commands, largely nonverbal currently. ASSESSMENT AND PLAN: 1. Likely severe sepsis, urinary tract infection, sinusitis. The patient with concern for infection on admission. He has had increased confusion prior to admission. Initial thought was for pneumonia, but CT chest does not show any evidence of acute lung infection. Urinalysis is suggestive of urinary tract infection. CT head shows sinusitis. He has cut some leg wounds and may have some mild cellulitis as well. On antibiotics with vancomycin and cefepime currently. Blood cultures preliminarily positive in 1 of 2 bottles for gram-positive cocci. May be contaminant, but concern that it could be real given that he has had an accessed port in his right upper chest for the last 2 to 3 weeks. We will repeat blood cultures in the morning and probably go ahead and get Infectious Disease to see him. Monitor closely. He did have some mildly low blood pressure earlier today, but that appears to be improving with intravenous fluids. Continue gentle hydration and monitor. 2. Metabolic encephalopathy. He may have a little bit of dementia at baseline, but likely due to his numerous comorbidities. We will treat underlying issues and monitor. 3. Moderate pulmonary fibrosis, aware. Monitor respiratory status. 4. Severe aortic stenosis, significantly worsened on last check not quite a month ago. Had gone from where his valve area has essentially been cut in half over the intervening year since it has been checked before that. Cardiology on board and we will see if they have any recommendations. Certainly not a candidate for an open repair but might be a candidate for a transcatheter aortic valve replacement (TAVR) once his other issues are stabilized. 5. Cardiac arrhythmia. The patient reportedly has history of atrial fibrillation, but does not appear to be in atrial fibrillation currently. His rhythm is irregular. I have difficulty identifying the rhythm. Consulted Cardiology as above and we will see what they say. 6. Chronic obstructive pulmonary disease, no wheezing currently. Does not appear to be in exacerbation. 7. History of bladder cancer, may be contributing to his urinalysis findings, but we will treat for presumed urinary tract infection until proven otherwise. Monitor. 8. Hypokalemia. We will replete and monitor. 9. Coagulopathy. Patient reportedly on Xarelto at home for atrial fibrillation, but family states that he had his last dose on Saturday. The patient's INR 4 on admission, which would not be consistent with Xarelto anyway, especially given that it has been 2 to 3 days since he had his last dose. Considered giving fresh frozen plasma, but on recheck it does appear to be coming down spontaneously, down to 2.64. Given lack of overt bleeding, aside from some oozing where he scratched up his mouth, we will monitor for now and consider reversal if this worsens or overt bleeding develops. No previous history of liver pathology. AST, ALT, and alkaline phosphatase unremarkable on admission, although his bilirubin was mildly elevated. We will probably get a liver ultrasound in the morning to make sure he has not developed some kind of liver issue. 10. Gram-positive cocci bacteremia. May be contaminant as it is in only 1 of 2 bottles, but given his port it may be real. We will see how it speciates. Vancomycin added to his antibiotic regimen with cefepime to cover that until it is sorted out. 11. Urinary retention. The patient appears to have likely had urinary retention at the facility he was at, as when his Giang was changed here approximately 750 mL were obtained. The Giang seems to be draining well now, but we will monitor. addendum: patient perfusion reassessed after fluid resuscitation. blood pressure improved. last lactate trending down. does not appear to need pressors currently but will monitor closely. [facility]
--- NOTE | 2019-09-30 23:08 | CONSULTATION ---
DATE OF CONSULTATION: 09/30/2019 IMPRESSION: 1. Severe aortic stenosis. 2. Currently admitted with altered mental status in setting of recurrent urinary tract infection. 3. Possible transient atrial fibrillation during hospitalization last month for sepsis. Patient currently in sinus rhythm with frequent supraventricular ectopy. 4. Pulmonary fibrosis, reported on chest CT scan. 5. Bladder cancer with patient currently undergoing chemotherapy. His chemotherapy has been on hold following recent hospitalization for sepsis. RECOMMENDATIONS: 1. Repeat limited echocardiography. 2. For now conservative cardiovascular management pending patient's improvement from a noncardiac standpoint. Specifically, from a standpoint of his recurrent urinary tract infection and altered mental status as well as functional status. He ultimately may be considered for TAVR. 3. For now, continue anticoagulation. However, the patient's atrial fibrillation episode was during episode of sepsis. Additionally, review of ECGs makes it unclear whether this was sinus tach with frequent supraventricular ectopy versus atrial fibrillation. At any rate, his atrial fibrillation has not recurred and anticoagulation retirement may not be required. HISTORY: This 84-year-old, white male with past history of severe aortic stenosis, COPD, pulmonary fibrosis, bladder cancer and recent hospitalization last month for sepsis, after which he has been in a long term facility, was transferred from long term facility for further management of altered mental status and suspected urinary tract infection. During his hospitalization last month, he was thought at the outset to be possibly in atrial fibrillation. Review of ECG suggests possibly sinus tachycardia with frequent supraventricular ectopy. At any rate, he was managed conservatively with rate control and anticoagulation, as he was treated for his sepsis, probably of urinary tract origin. He improved clinically and rhythm clearly was sinus rhythm with frequent supraventricular ectopy thereafter. He was transferred to long term facility. He actually just was transferred there a few days ago. He started having a change of mental status with confusion. He was suspected to have recurrent urinary infection, was brought back to [facility]. Indeed, urinalysis suggested recurrent urinary tract infection. He denies any chest discomfort or shortness of breath. He is presently in sinus rhythm. He is somewhat confused and is not certain as to why he has been hospitalized. He has had some intermittent tendency to not recognize his family members. PAST MEDICAL HISTORY: 1. Severe aortic stenosis. 2. Chronic obstructive pulmonary disease. 3. Pulmonary fibrosis. 4. Bladder cancer. 5. Possible transient atrial fibrillation during recent hospitalization for urosepsis. PAST SURGICAL HISTORY: 1. Includes bladder tumor removal. 2. Right venous port placement. 3. Previous cataract procedure. ALLERGIES: He is allergic or intolerant to codeine. MEDICATIONS PRIOR TO ADMISSION: As listed. SOCIAL HISTORY: He has been living at home until recently. He is in a long term facility following recent hospitalization for urosepsis. He has history of previous cigarette use in the past but no longer smokes cigarettes. He retired from service in the [employer] for many years. He is . FAMILY HISTORY: Negative for premature coronary disease. REVIEW OF SYSTEMS: Pulmonary: Noncontributory. Gastrointestinal: Noncontributory. Constitutional: Noncontributory. Remainder of review of systems is noncontributory beyond history of present illness with 14 total systems reviewed. PHYSICAL EXAMINATION: General: This is a elderly white male, and in no distress on nasal cannula oxygen. Vital signs: Blood pressure 120/85, heart rate 80 and irregular, oxygen saturation 100% on nasal cannula oxygen. HEENT: Extraocular movements intact. Mucous membranes are moist. Neck: Supple without jugular venous distention. No carotid bruits. Chest: Reveals a few bibasilar inspiratory crackles. Cardiac: Reveals a regular rate and rhythm with frequent extrasystole. There is a grade 2 to 3/6 crescendo/decrescendo systolic murmur at the right upper sternal border and also heard at the apex. No gallop could be appreciated. Abdomen: Soft. Bowel sounds are normal. Extremities: Without edema. ELECTROCARDIOGRAM: A 12-lead EKG demonstrates sinus rhythm with frequent supraventricular complexes and occasional premature ventricular complex with aberrancy. Left axis deviation, probably due to left anterior fascicular block; a right bundle branch block. LABORATORY DATA: Includes a white blood cell count of 4.19, hematocrit 32.9, hemoglobin 10.7, platelet count 80,000. Pro-time 28.9, INR 2.64. Sodium 145, potassium 3.1, chloride 108, carbon dioxide 27, BUN 13, creatinine 0.7. Glucose 106, bilirubin 1.15, AST 19, ALT 15, alkaline phosphatase 84. Initial troponin T high-sensitivity 44 with a followup troponin T high- sensitivity 58. Pro B-natriuretic peptide level 564. Albumin 2.2. Urinalysis noteworthy for too- [id number] white blood cells. cc: Manny Aviles MD
[2019-10-01] MEDS: NS 1,000 ML IV SCH ×4 (01:56→21:22)
[2019-10-01] MEDS: DUONEB (A & A) INH SCH ×6 (04:05→23:30)
[2019-10-01] MEDS: MAXIPIME 1 GM in NS 50 ML IV SCH (08:43)
[2019-10-01 08:57] LABS: BASO# 0.03 X1000 (0.0-0.2); BASO% 0.4 % (0.0-0.8); EOS% 1.5 % (0.0-10.0); HEMOGLOBIN 12.1 g/dL (14.0-18.0); INR 1.86; LYMPH# 0.96 X1000 (1.2-3.4); LYMPH% 14.1 % (20.5-51.1); MCH 31.3 PG (27-31); MCHC 31.8 g/dL (33-37); MCV 98.2 FL (81-99); MONO# 0.66 X1000 (0.11-0.59); MONO% 9.7 % (1.7-9.3); MPV 10.6 FL (7.4-10.4); NEUT# 5.07 X1000 (1.4-6.5); NEUT% 74.3 % (42.2-75.2); PLT 99 X1000 (130-400); PROTIME 21.8 Seconds (11.0-16.0); RBC 3.87 XMIL (4.7-6.1); RDW 17.8 % (11.5-14.5); WBC 6.82 X1000 (4.8-10.8)
[2019-10-01 09:05] LABS: AGAP 13; ALB/GLOB RATIO 0.6; ALBUMIN 2.5 g/dL (3.5-5.0); ALKALINE PHOSPHATASE 99 U/L (32-122); BUN 13 mg/dL (8-22); CALCIUM 8.3 mg/dL (8.8-10.2); CHLORIDE 105 mmol/L (98-107); COSMO 283; CREATININE 0.8 mg/dL (0.7-1.2); ESTIMATED GFR > 60; GLUCOSE 102 mg/dL (70-104); GOT 25 U/L (10-34); GPT 17 U/L (10-44); POTASSIUM 3.1 mmol/L (3.5-5.1); SODIUM 142 mmol/L (136-145); TCO2 24 mmol/L (25-35); TOTAL BILIRUBIN 1.66 mg/dL (0.20-1.00); TOTAL PROTEIN 6.4 g/dL (6.3-8.3)
[2019-10-01] MEDS ORDERED: NS 1,000 ML IV ONE (09:13)
[2019-10-01] MEDS ORDERED: MYCOSTATIN POWDER TOP SCH (09:15)
[2019-10-01] MEDS ORDERED: CUBICIN 500 MG in NS 100 ML IV SCH (10:30)
[2019-10-01] MEDS: MYCOSTATIN POWDER TOP SCH ×2 (11:07→23:38)
[2019-10-01] MEDS: POTASSIUM CHLORIDE 20 MEQ/SWI 20 MEQ/100 ML IVPB IV SCH ×2 (11:07→15:54)
--- NOTE | 2019-10-01 12:40 | ECHO REPORT ---
ORDER DATE: 09/30/2019 INDICATIONS: Aortic stenosis, COPD, atrial fibrillation. FINDINGS: 1. The right atrium appears normal in size. 2. Mild tricuspid regurgitation. RV systolic pressure of 59 suggesting pulmonary hypertension. 3. Right ventricle appears normal in size with normal systolic function on difficult views of the right ventricle. 4. No significant pulmonic insufficiency. 5. Mild left atrial enlargement at 4.3 cm. 6. No mitral prolapse. Mild mitral regurgitation. 7. Normal LV size, end-diastolic dimension of 5 cm. Normal wall thicknesses with a posterior and interventricular septal wall thickness of 0.9 cm each. Normal LV systolic function. Estimated EF of 60% to 65% percent. 8. Aortic valve is heavily calcified with restriction in motion suggestive of severe aortic stenosis. Peak gradient is 80 with a mean of 54. Valve area by continuity equation is 1 cm sq. Last echocardiogram in August 2019 and had a mean gradient of 46, peak of 70, and valve area 0.8 cm sq. No insufficiency identified. 9. Aorta appears normal in visualized segments. 10. No pericardial effusion seen. cc: MD Yelitza Altamirano PA
[2019-10-01] MEDS: SOLU-MEDROL IV SCH (14:14)
[2019-10-01] MEDS: ULTRAM PO PRN ×2 (14:17→21:32)
[2019-10-01] MEDS: TYLENOL PO PRN (14:17)
--- NOTE | 2019-10-01 15:50 | INFECTIOUS DISEASE CONSULT REP ---
DATE: 10/01/2019 CONCLUSION: Dr. Hernandez asked me to see this patient. Two days ago the patient had blood cultures drawn and 1 out of blood cultures is growing a gram-positive coccus. This could be a contaminant such as Staphylococcus epidermidis or it could be a pathogen such as Staphylococcus aureus. In addition, the patient has ethmoid and frontal sinusitis. RECOMMENDATIONS: I agree with treating the blood culture since we do not know whether it is a contaminant or not. The patient has decreased hearing, so I have stopped vancomycin and instead started daptomycin pending final culture results. I have also ordered Augmentin to treat the patient's sinusitis. DISCUSSION: The patient was admitted the hospital. He had an altered mental status and also his urine was cloudy. His was not having fever or shaking chills. In the past when the patient had a urinary tract infection, he had an altered mental status associated with it. LABORATORY DATA: The patient's studies thus far show a CBC, white count of 6820, hemoglobin 12.1, platelet count 99,000 creatinine is 0.8, GFR is greater than 60. The patient's procalcitonin is 0.1 which makes pneumonia unlikely. Urinalysis showed white cells but no bacteria. One out of two blood cultures done 2 days ago is growing gram-positive coccus. Repeat blood cultures were ordered today. Urine culture was negative. Chest CT scan showed pulmonary fibrosis. CT scan of the head showed ethmoid and frontal sinusitis. PAST MEDICAL HISTORY/REVIEW OF SYSTEMS: Eyes and ears: Patient has decreased hearing. He does wear glasses for reading. Neck: No stiffness. Bones/joints/muscles/back: The patient has pain in his back and in his hips, knees, and hands due to arthritis. Cardiac: The patient is in atrial fibrillation. He is not having any chest pain. The patient has a heart murmur. Pulmonary: The patient is not coughing and is not having dyspnea. Genitourinary: The patient self catheterizes himself on a regular basis. Neurologic: No seizures. No recent loss of motor or sensory function. PREVIOUS HOSPITALIZATIONS AND OPERATIONS: Patient came in a septic condition in August. Apparently, this was due to a urinary tract infection. He has had cataract surgery. He has had bladder surgeries for cancer. He has had placement of a right-sided Port-A-Cath. MEDICAL DISEASES: Positive for bladder cancer, myocardial infarction, atrial fibrillation, and systolic murmur.Infectious disease history: Positive for urinary tract infection and pneumonia. FAMILY HISTORY: This is unknown by the patient. SOCIAL HISTORY: [place] He is a . He lives alone. He is said to be allergic to codeine but actually, according to the patient's son the patient just does not like the medication. The patient stopped smoking 40 years ago. He does not drink alcoholic beverages or abuse drugs. He is retired from the [employer]. He does not have any pets at home. PHYSICAL EXAMINATION: Vital Signs: Temperature is 98.6 degrees, pulse 93, respirations 16, blood pressure is 129/60. Patient is 201 pounds. General: This is an ill-appearing elderly male. He is in no acute distress. Head/eyes/ears/nose/throat: He has decreased hearing. I did not formally test his vision, but he did see near objects. Neck: No stiffness. Lungs: Clear to auscultation. Cardiovascular: Heart rate is irregular. The patient also has a systolic murmur. Abdomen: Soft and nontender. Genitalia: Patient has a Giang catheter in place. Neurologic: The patient is awake. He can move his extremities. There is no tremor. His memory as regarding his medical history was decreased. cc: Negro Luna MD
--- NOTE | 2019-10-01 16:55 | HEMO/ONC CONSULTATION ---
DATE: 10/01/2019 REASON FOR CONSULTATION: He is a known patient of ours for the treatment of bladder cancer. HISTORY OF PRESENT ILLNESS: Mr. Jayesh Morillo is an 84-year-old gentleman with a history of bladder cancer and multiple other comorbidities, who presented to the emergency department for a change in mental status. The patient came to the emergency department due to a change in mental status. It appeared he had a urine infection upon arrival was large amount of leukocytes and numerous white WBC. Chest x-ray shows evidence of interstitial opacities particularly in the left lower lobe as well as the right upper lobe. The patient was admitted for further management. The patient is treated in our office for bladder cancer, high-grade with squamous differentiation. He was started on 5-FU with mitomycin on 08/31/2019 for 1 dose and was hospitalized shortly after that for urosepsis, AMS, pneumonia, on 09/10/19 through 09/17/2021. PAST MEDICAL HISTORY: COPD, seasonal allergies, reflux, chronic arthritis, bladder cancer, atrial fibrillation, and congestive heart failure. PAST SURGICAL HISTORY: He has had a bladder tumor removal, right port placement and cataract removal. SOCIAL HISTORY: No alcohol, tobacco, or drug use. ALLERGIES: Codeine. HOME MEDICATIONS: Advair, cranberry extraction, Combivent, Pepcid, Flonase, potassium, Lasix, Mobic, minocycline, MiraLAX, Singulair. REVIEW OF SYSTEMS: The patient was oriented x1 at the time of my assessment. He had no complaints. Unable to obtain a true ROS. VITAL SIGNS: Temperature 98 degrees, pulse rate 96, respiratory rate 16, blood pressure 128/80, O2 saturation 100% on nasal cannula at 2 L. He complains of 8/10 bilateral hip pain. PHYSICAL EXAMINATION: General: The patient is slightly confused but in no acute distress. HEENT: Sclerae is anicteric. PERRLA. Dry blood appears around lips. Oral mucosa is dry. Cardiovascular normal S1, S2. Rhythm irregular. Respiratory system: Normal respiratory effort. Abdomen: Soft, nontender. Extremities: Bilateral upper arms have some wounds as well as stasis dermatitis. It looks like he has fallen recently and gotten some skin tears. BUSINESS OFFICE REPRESENTATIVE is oriented x1. Follows commands after much coaching. Able to move all 4 extremities. LABORATORY: WBC 6.82, hemoglobin 12.1, hematocrit 38.0, platelet count 99,000, ANC 5.07, potassium 3.1, calcium 8.3, total bilirubin 1.66, plasma lactate 2.4. RADIOLOGY: Chest x-ray: Interstitial opacities particularly in the left lower lobe and right upper lobe. Head CT: No evidence of acute intracranial disease. The patient positive for sinusitis. CT of the chest: Slight progression in moderate pulmonary fibrosis. ASSESSMENT AND PLAN: 1. Sepsis. The patient had a couple hours of low blood pressures, which were treated with pressors and IV fluids. He is currently on IV antibiotics, most likely urinary tract infection, and sinusitis contributing to possible sepsis. He has had increased confusion. 2. Urinary tract infection. Continue antibiotics per medical management. 3. Altered mental status. The nurses have noted that the patient has continually pulled out lines. He is pulled his Port-A-Cath Rubio needle out twice. He is difficult to follow commands. Continue to treat per medical management. 4. Bladder cancer. The patient's chemotherapy treatment is currently on hold. He was also receiving radiation. We will continue to monitor as necessary. 5. Irregular heart rhythm. Cardiology has been consulted. 6. Deep venous thrombosis prophylaxis. The patient is supposed to be on Xarelto at home for atrial fibrillation. His INR was rather high on admission. The family is not sure he has been taking it regularly. Consider sequential compression devices or intermittent pneumatic devices. 7. Gram-positive cocci bacteremia. Continue to treat with antibiotics per medical management and Dr. Luna. Dictated by SASHA Santiago for Moustapha Zhu MD Patient seen and examined. He was admitted with urinary tract infection, sepsis and change in mental status. This is slowly improving. He is known to us for invasive bladder carcinoma, being treated with concurrent chemotherapy and radiation. The family member reports that he has tolerated chemotherapy and radiation well. Unfortunately he has had recurrent infections, but these are unrelated to neutropenia. Continue current management. Hopefully he will be back to his baseline soon and can complete his therapy which is potentially curative. On admission his INR was elevated at Xarelto is on hold. INR has come down below 2. Okay for my standpoint to restart. Moustapha Zhu M.D. cc: Moustapha Zhu MD [facility]Donald
[2019-10-01] MEDS: AUGMENTIN PO SCH ×2 (17:16→21:32)
--- NOTE | 2019-10-01 17:26 | PROGRESS NOTE ---
DATE: 10/01/2019 INTERVAL HISTORY: The patient's mental status markedly improved. Awake and speaking coherently. Following commands pretty well. Complaining of a little bit of a headache, but otherwise essentially no complaints. Still some mild wheezing. Repeat lactate actually trending back up despite improvement in blood pressure, so giving some additional fluids this morning. The patient with good perfusion and adequate blood pressure and improvement in heart rate with fluids. Further repeat lactate pending. REVIEW OF SYSTEMS: Twelve point review of systems negative except as per interval history. LABORATORY DATA: WBC 6.8, hemoglobin 12.1, hematocrit 38.0, platelets 99,000. INR 1.86. Sodium 142, potassium 3.1, BUN 13, creatinine 0.8, bilirubin 1.6, lactate 4.4, procalcitonin 0.1 (negative). Initial blood cultures 1 of 2 bottles gram-positive cocci with speciation pending. Urine growing yeast. VITAL SIGNS: T-max 99.5 degrees, pulse 96, respirations 16, blood pressure 128/60, O2 saturation 100% on 2 L by nasal cannula. PHYSICAL EXAMINATION: General: No acute distress. Chronically ill appearing. Vitals: As above. HEENT: Normocephalic. Still minimally dry mucous membranes. Still a few small clots on the roof of the mouth, but no further active bleeding. Cardiovascular: Regular rate and rhythm currently. Still with a loud 4/6 murmur. Pulmonary: Mild expiratory wheeze and a few scattered rhonchi but good air entry. Abdomen: Soft, nontender, nondistended. Bowel sounds positive. Extremities: Peripheral pulses intact. No clubbing, cyanosis. Few minor abrasions without any sign of infection. Neurologic: Cranial nerves grossly intact. Globally weak but no focal deficits identified. Psychiatric: Awake, alert, following commands well. Answers are appropriate. ASSESSMENT AND PLAN: 1. Likely severe sepsis, urinary tract infection, sinusitis, possible bacteremia. Patient with increased confusion prior to admission. Initial thought was for pneumonia but CT did not show any evidence of lung infection and procalcitonin negative. Urinalysis is suggestive of urinary tract infection, although his history of bladder radiation makes that difficult to say with any certainty. Also sinusitis on CT head. Blood cultures 1 of 2 bottles positive for gram-positive cocci may be contaminant, but as he has a port that has been accessed the last few weeks there is concern that this is real. Started initially on cefepime and vancomycin added when blood cultures became positive. Infectious disease now on board and has transitioned the patient to Augmentin and daptomycin. Had a drop in blood pressure yesterday but responded well to fluid resuscitation. However, repeat lactate this morning trending back up. Giving additional fluids and monitoring closely. 2. Metabolic encephalopathy, likely some mild dementia at baseline with delirium caused by his issues as above. Now largely resolved. Continue to monitor. He may still have some owning. 3. Severe aortic stenosis. Significantly worsened on most recent echo. Not a candidate for open repair but may be a candidate for transient aortic valve replacement (TAVR) once his other issues are improved. 4. Moderate pulmonary fibrosis, aware, slightly worsened on most recent check. 5. Cardiac arrhythmia, atrial fibrillation by history but no clear atrial fibrillation identified here. Cardiology following and favors frequent supraventricular complexes with occasional premature ventricular complex with aberrancy, also left anterior fascicular block and right bundle branch block on EKG. 6. Chronic obstructive pulmonary disease. No wheezing yesterday but a little bit today. Pretty good air entry, though. We will place on DuoNeb and a little bit of steroid to make sure he is not trying to get into some mild chronic obstructive pulmonary disease exacerbation. 7. History of bladder cancer with recent radiation. Aware. 8. Hypokalemia still low this morning. We will further replete and monitor. 9. Coagulopathy. Patient reportedly on Xarelto at home, but family states he had his last dose 2 to 3 days prior to admission. The patient's INR 4 on admission, which would be higher than would be expected to get with Xarelto. Regardless, however, does appear to be trending down to 1.86 today. Continue to monitor but likely no need for acute intervention at this time. Continue to hold blood thinner given elevated INR of unclear significance and oral bleeding from where he picked at his mouth. 10. Gram-positive cocci bacteremia. May be contaminant as only 1 of 2 bottles but concern that it may be real given illness and numerous health problems and a port in right upper chest. Infectious Disease following. Repeating blood cultures today. We will see how those cultures finalize. 11. Urinary retention, likely related to Giang issue initially. Appears to be resolved with changing out the Giang. Initially got 750 out but has been good since.
[2019-10-01] MEDS ORDERED: VANCOMYCIN 1.8 GM in NS 250 ML IV SCH (19:00)
[2019-10-01] MEDS ORDERED: STERILE WATER INJ. INJ ONE (23:14)
[2019-10-01] MEDS ORDERED: GEODON IM ONE (23:14)
[2019-10-02] MEDS ORDERED: ZOFRAN IV PRN (02:10)
[2019-10-02] MEDS: SOLU-MEDROL IV SCH ×2 (02:44→14:39)
[2019-10-02] MEDS: NS 1,000 ML IV SCH ×4 (02:44→22:58)
[2019-10-02] MEDS: DUONEB (A & A) INH SCH ×6 (03:20→23:18)
[2019-10-02 07:44] LABS: BASO# 0.01 X1000 (0.0-0.2); BASO% 0.2 % (0.0-0.8); HEMOGLOBIN 11.3 g/dL (14.0-18.0); LYMPH# 0.47 X1000 (1.2-3.4); LYMPH% 11.3 % (20.5-51.1); MCH 31.7 PG (27-31); MCHC 32.3 g/dL (33-37); MCV 98.3 FL (81-99); MONO# 0.11 X1000 (0.11-0.59); MONO% 2.6 % (1.7-9.3); MPV 10.9 FL (7.4-10.4); NEUT# 3.57 X1000 (1.4-6.5); NEUT% 85.9 % (42.2-75.2); PLT 87 X1000 (130-400); RBC 3.56 XMIL (4.7-6.1); RDW 17.4 % (11.5-14.5); WBC 4.16 X1000 (4.8-10.8)
[2019-10-02 08:01] LABS: BANDS 2 % (0-1); LYMPHS 14 % (21-51); MONO 4 % (1-9); SEGS 80 % (42-75)
[2019-10-02 08:02] LABS: ANISOCYTOSIS 1+
[2019-10-02 08:09] LABS: AGAP 11; ALB/GLOB RATIO 0.7; ALBUMIN 2.4 g/dL (3.5-5.0); ALKALINE PHOSPHATASE 90 U/L (32-122); BUN 15 mg/dL (8-22); CALCIUM 7.8 mg/dL (8.8-10.2); CHLORIDE 107 mmol/L (98-107); COSMO 283; CREATININE 0.8 mg/dL (0.7-1.2); ESTIMATED GFR > 60; GLUCOSE 148 mg/dL (70-104); GOT 27 U/L (10-34); GPT 17 U/L (10-44); POTASSIUM 3.8 mmol/L (3.5-5.1); SODIUM 140 mmol/L (136-145); TCO2 22 mmol/L (25-35); TOTAL BILIRUBIN 1.04 mg/dL (0.20-1.00)
[2019-10-02] MEDS: AUGMENTIN PO SCH (08:30)
[2019-10-02] MEDS: MYCOSTATIN POWDER TOP SCH ×2 (08:31→20:01)
--- NOTE | 2019-10-02 14:17 | HEMO/ONC PROGRESS NOTE ---
DATE: 10/02/2019 SUBJECTIVE: Mr. Morillo is sitting up in bed preparing to eat his breakfast. He is alert and oriented. He knows who he is, where he is and who I am. The patient seems to have had an improvement in his mental status. He denies any pain at this time. He is comfortable. He states he had a good night and there were no acute events noted in the nurse's note overnight. OBJECTIVE: Vital Signs: Temperature 98.2 degrees, pulse rate 94, respiratory rate 17, blood pressure 105/55, O2 saturation 100% on room air, he is in 0/10 pain. General: He is in a acute distress. HEENT: Sclerae anicteric. PERRLA. Slightly dry mucous membranes. Cardiovascular: Regular rate and rhythm, murmur noted. Pulmonary: Some wheezes noted. Normal respiratory effort. Gastrointestinal: Abdomen soft, nontender, nondistended. Bowel sounds are present. Extremities: No edema noted. Neurological: No focal motor deficits noted, alert and oriented to person and place, follows commands well. LABORATORY: WBCs 4.16, hemoglobin 11.3, hematocrit 35.0, platelet count 87,000, ANC 3.57, calcium 7.8, total bilirubin 1.04. ASSESSMENT AND PLAN: 1. Sepsis with urinary tract infection. Patient came in with significant confusion on admission. He is about back to baseline at this time. Continue him on IV antibiotics. 2. Urinary tract infection. Continue medical management. 3. Altered mental status, encephalopathy, patient does have some mild dementia for the most part he is back to baseline but he may still have some sundowners. 4. Bladder cancer. The patient's chemotherapy treatment is currently on hold. He was also currently receiving radiation and tolerating his therapy very well. 5. Irregular heart rhythm, no murmur was noted, cardiology has been consulted. The patient also has severe aortic stenosis that is significantly worsened on a recent echocardiogram . 6. Coagulopathy, his INR was noted to be elevated at admission, his INR has now come down below 2. It is okay from hematology standpoint to restart his Xarelto. 7. Deep venous thrombosis prophylaxis, please restart his Xarelto. 8. Gram-positive cocci bacteremia, following blood cultures, continue to treat per medical management and Dr. Luna. Dictated by SASHA Santiago for Moustapha Zhu MD Patient seen and examined. Patient is improving in terms of his mental status. Continue antibiotics. We will follow up outpatient to restart his radiation/chemo for bladder cancer once he is better. Moustapha Zhu MD cc: Moustapha Zhu MD [facility]
[2019-10-02] MEDS: UNASYN 3 GM/NS 3 GM/100 ML IVPB IV SCH ×3 (14:37→20:02)
--- NOTE | 2019-10-02 17:49 | PROGRESS NOTE ---
DATE: 10/02/2019 INTERVAL HISTORY: Patient mental status continues to be significantly improved. Dyspnea also improving. Blood cultures growing out Enterococcus faecalis so unlikely to be a contaminant but repeat blood cultures no growth so far. No other acute events. REVIEW OF SYSTEMS: Twelve point review of systems negative except as per interval history. LABS: WBC 4.1, hemoglobin 11.3, hematocrit 35.0, platelets 87,000. Sodium 140, potassium 3.8, bicarb 22, BUN 15, creatinine 0.8, glucose 148 . VITALS: T-max 99 degrees, pulse 94, respirations 17, blood pressure 105/55, O2 saturation 100% on 2 L by nasal cannula . PHYSICAL EXAM: General: No acute distress. Chronically ill appearing. Vitals as above. HEENT: Normocephalic, atraumatic. Cardiovascular: Regular rate and rhythm. Loud 4/6 murmur stable. Pulmonary: Still a few scattered rhonchi but not really any further wheezing. Good air entry. Abdomen: Soft, nontender, nondistended. Bowel sounds positive. Extremities: Peripheral pulses intact. No clubbing, cyanosis. Minor abrasions stable. Neurologic: Cranial nerves grossly intact, globally weak but no focal deficits identified. Psychiatric: Awake, alert, following commands well. Oriented to person and place but not time. ASSESSMENT AND PLAN: 1. Severe sepsis, urinary tract infection, sinusitis, bacteremia. Patient with increased confusion prior to admission. Initial thought was for pneumonia but CT did not show any evidence of lung infection. UA suggestive of urinary tract infection and sinusitis on CT head. Original blood cultures growing Enterococcus faecalis so favor urinary source. Consulted infectious disease given patient's port and bacteremia, change patient to Augmentin and daptomycin which he remains on. Repeat blood cultures no growth so far. Lactate still slightly elevated but improving. Blood pressure remains improved. Continue antibiotics, monitor closely. 2. Metabolic encephalopathy, likely some mild underlying dementia and delirium associated with his sepsis largely resolved at this point. 3. Severe aortic stenosis significantly worsened on most recent echocardiogram. Not a candidate for open repair but may be a candidate for transcatheter aortic valve replacement once his other issues are resolved/improved. 4. Enterococcus faecalis bacteremia on antibiotics as above. Repeat blood cultures no growth to date. We will see what Infectious Disease does but favor urinary source so we will hopefully be able to salvage his port. 5. Chronic obstructive pulmonary disease. A little wheezing yesterday but again resolved today. Continue nebs and low-dose steroids for possible minimal exacerbation. 6. Bladder cancer with recent radiation and chemo aware. 7. Hypokalemia improved with repletion. Continue to monitor. 8. Coagulopathy. Patient reportedly on Xarelto at home. Family stated that he had his last dose 2 to 3 days prior to admission. The patient's INR 4 on admission but has trended down spontaneously. Heme/Onc okay with restarting but will likely give it 1 more day to make sure whatever was causing his INR to be so high is resolved. 9. Urinary retention likely related to issue with Giang he had when he came in. Appears to be resolved with changing out the Giang on admission. Initially got 750 mL out but has been fine since.
--- NOTE | 2019-10-02 18:03 | INFECTIOUS DISEASE PROGRESS NO ---
DATE: 10/02/2019 PRESENT ILLNESS: Mr. Morillo has an enterococcal bacteremia as well as a sinusitis. His urine culture has grown a yeast which will not need any treatment. The origin of the bacteremia is assumed to be his Port-A-Cath. MEDICATIONS: He has been receiving daptomycin 500 mg IV daily, and Augmentin 875 mg by mouth every 12 hours which we will change today. PHYSICAL EXAMINATION: Vital Signs: Temperature is 97.5 degrees, pulse rate 77, respiratory rate 19. Blood pressure 140/73. O2 saturation is 99% on room air. General: This is a chronically ill-appearing, elderly gentleman. He is sitting up in bed, currently in no acute distress. HEENT: Atraumatic, normocephalic. Oral mucous membranes are pink and moist. He is edentulous. Conjunctiva are pink. The sclera of his right eye is erythematous. Neck: Supple. Trachea is midline. Cardiovascular: Heart rate is irregular. Systolic murmur noted. Respiratory: Lung sounds have some scattered wheezing in the upper and middle lobes. Diminished in the bases. Abdomen: Soft, round, and nontender. Bowel sounds are active. Neurologic: He is awake, alert, and forgetful with periods of confusion. He is able to move his extremities in the bed with generalized weakness noted. Integumentary: There is a Port-A-Cath in place to the right chest. Site is without edema, erythema, or drainage. LABORATORY AND X-RAY: Today his white count is 4.16, hemoglobin 11.3, platelet count 87,000. Creatinine is 0.8. Estimated GFR is greater than 60. Total bilirubin is 1.04, AST 27, ALT 17, alkaline phosphatase 90. His blood cultures have shown an enterococcal faecalis in 1/2 and the urine culture grew yeast. Repeat blood cultures were drawn yesterday and are pending. No imaging reports today. ASSESSMENT AND PLAN: Mr. Morillo is being treated for an enterococcal bacteremia as well as a sinusitis. He has been receiving daptomycin and Augmentin both of which we will discontinue. We will start him on Unasyn 3 g IV every 6 hours which will cover the enterococcal bacteremia as well as the sinusitis. These plans have been discussed with and recommended by Dr. Luna. COMORBIDITIES: For Mr. Morillo include that he is elderly with some confusion, bladder cancer, atrial fibrillation, COPD and aortic stenosis. Dictated by SASHA Hanley for Negro Luna MD cc: Negro Luna MD [facility]
[2019-10-02] MEDS: TYLENOL PO PRN (21:51)
[2019-10-03] MEDS: NS 1,000 ML IV SCH ×3 (03:15→16:44)
[2019-10-03] MEDS: SOLU-MEDROL IV SCH ×2 (03:15→16:48)
[2019-10-03] MEDS: UNASYN 3 GM/NS 3 GM/100 ML IVPB IV SCH ×4 (03:15→20:24)
[2019-10-03] MEDS: DUONEB (A & A) INH SCH ×6 (03:37→22:58)
[2019-10-03] MEDS: TYLENOL PO PRN (05:15)
[2019-10-03 07:44] LABS: BASO# 0.01 X1000 (0.0-0.2); BASO% 0.1 % (0.0-0.8); HEMATOCRIT 33.9 % (42.0-52.0); HEMOGLOBIN 10.9 g/dL (14.0-18.0); LYMPH# 0.39 X1000 (1.2-3.4); LYMPH% 5.3 % (20.5-51.1); MCH 31.5 PG (27-31); MCHC 32.2 g/dL (33-37); MONO# 0.28 X1000 (0.11-0.59); MONO% 3.8 % (1.7-9.3); MPV 11.5 FL (7.4-10.4); NEUT# 6.61 X1000 (1.4-6.5); NEUT% 90.8 % (42.2-75.2); PLT 111 X1000 (130-400); RBC 3.46 XMIL (4.7-6.1); RDW 17.7 % (11.5-14.5); WBC 7.29 X1000 (4.8-10.8)
[2019-10-03 07:45] LABS: AGAP 10; ALB/GLOB RATIO 0.8; ALBUMIN 2.5 g/dL (3.5-5.0); ALKALINE PHOSPHATASE 86 U/L (32-122); BUN 14 mg/dL (8-22); CALCIUM 7.6 mg/dL (8.8-10.2); CHLORIDE 106 mmol/L (98-107); COSMO 283; CREATININE 0.8 mg/dL (0.7-1.2); ESTIMATED GFR > 60; GLUCOSE 187 mg/dL (70-104); GOT 24 U/L (10-34); GPT 16 U/L (10-44); POTASSIUM 3.4 mmol/L (3.5-5.1); SODIUM 139 mmol/L (136-145); TCO2 23 mmol/L (25-35); TOTAL BILIRUBIN 0.63 mg/dL (0.20-1.00); TOTAL PROTEIN 5.8 g/dL (6.3-8.3)
[2019-10-03 08:09] LABS: INR 1.46
[2019-10-03 08:24] LABS: LYMPHS 2 % (21-51); MONO 2 % (1-9); SEGS 96 % (42-75)
[2019-10-03] MEDS: MYCOSTATIN POWDER TOP SCH ×2 (08:58→20:24)
--- NOTE | 2019-10-03 10:45 | PROVIDER DOCUMENTATION ---
This chart was entered by Eileen Hudson Scribe, acting as scribe for Vesna Hanna MD. HPI-General Adult - General Stated Complaint: AMS Time Seen by Provider: 09/29/19 14:17 Source: patient, family (son), EMS (first response) Allergies/Adverse Reactions: Patient Allergies Allergy/AdvReac Type Severity Reaction Status Date / Time codeine AdvReac Unknown Verified 09/29/19 16:09 Home Medications: Home Medication List Medication Instructions Recorded Confirmed Last Taken Type Fluticasone/Salmet 100/50 INH 1 puff INH RTBID 09/10/14 09/29/19 09/29/19 09:00 History [Advair 100/50 Diskus] Montelukast Chew [Singulair] 10 mg PO DAILY 09/10/14 09/29/19 09/29/19 09:00 History Cranberry Fruit Extract [Cranberry] 500 mg PO DAILY 05/08/18 09/29/19 09/29/19 07:00 History Fluocinonide 0.05% Cream [Lidex 1 applicatn TOP PRN PRN 05/08/18 09/29/19 09/29/19 08:00 History 0.05% Cream] Fluticasone Propionate [Flonase 2 spray NS DAILY 05/08/18 09/29/19 09/29/19 08:00 History Allergy Relief] Furosemide [Lasix] 20 mg PO DAILY 05/08/18 09/29/19 09/29/19 08:00 History Ipratropium/Albuterol INH 1 puff INH 4XDAY 05/08/18 09/29/19 09/29/19 08:00 Hi story [Combivent Respimat Inhaler] Acetaminophen E.r. [Tylenol 2 tab PO TID PRN 08/15/19 09/29/19 09/29/19 09:00 History Arthritis] Potassium Chloride [Klor-Con M20] 20 meq PO DAILY 08/25/19 09/29/19 09/29/19 08:00 History Acetaminophen [Tylenol] 650 mg PO Q4H PRN PRN tab 09/17/19 09/29/19 09/29/19 08:00 Rx Rivaroxaban [Xarelto] 20 mg PO DAILY #30 tab 0109/29/19 09/29/19 09:00 Rx Ceftazidime 2,000 mg IV BID 09/29/19 09/29/19 09/29/19 07:00 History Famotidine 40 mg PO DAILY 09/29/19 09/29/19 09/29/19 07:00 History Ipratropium/Albuterol INH 1 puff INH Q6H PRN PRN 09/29/19 09/29/19 Unknown History [Combivent Respimat Inhaler] Metolazone 5 mg PO Q24H PRN PRN 09/29/19 09/29/19 09/29/19 08:00 History Polyethylene Glycol 3350 [Miralax] 17 gm PO DAILY 09/29/19 09/29/19 09/29/19 09:00 History - History of Present Illness -Gen Adult Nature of Presenting Problems: 84 yowm presents to the ed via ems for confusion. son is at bedside and sts this am pt was confused, at baseline per son is "He is sharp as a tack" pt is pleasant and denies pain on exam but thinks his son is his father and has lived in [place] for 50 years and does not know where he is. son sts last 2 days pt has had hematuria in cath bag and is unsure if henriquez cath has been changed since pt was sent to SNF from recent hospital discharge. pt was recently in hospital due to PNA and sepsis and is still currently on abx. pt has hx of bladder cancer but is not currently on chemo due to hospitalization. pt has an appointment with oncology to resume chemo next week per son Location of Pain/Injury: reports: none Quality of Pain: reports: none Severity: reports: moderate (confusion) Onset/Duration: reports: this morning Timing: reports: still present, constant Context/Activities at Onset: reports: light activity Modifying Factors: improves with: nothing Associated Symptoms: reports: cough, genitourinary problems (hematuria). denies: back/neck pain, chest pain, diarrhea, nausea, shortness of breath, vomiting Similar Symptoms Previously?: No Recently seen or treated by another doctor?: Yes (was dc from hosp recently ) Review of Systems - Adult - REVIEW OF SYSTEMS - ADULT ROS:: ROS per family (son) Constitutional: denies: chills, fever Eyes: reports: no symptoms reported Ears, Nose, Mouth & Throat: reports: no symptoms reported Cardiovascular: reports: see HPI, edema. denies: chest pain, palpitations Respiratory: reports: see HPI, cough. denies: shortness of breath, wheezing Gastrointestinal: denies: abdominal pain, diarrhea, nausea, vomiting Genitourinary: reports: see HPI, hematuria Musculoskeletal: reports: no symptoms reported Integumentary: reports: see HPI, other (multiple areas on BLE with bandages) Neurological: reports: see HPI, other (confusion). denies: ataxia, seizure, slurred speech Psychiatric: reports: no symptoms reported Endocrine: reports: no symptoms reported Hematologic/Lymphatic: reports: no symptoms reported Allergic/Immunologic: reports: no symptoms reported All Other Systems: Reviewed and Negative Past History - Adult - PAST MEDICAL HISTORY-ADULT Review of Records: reports: Old Records Reviewed, Nursing Assessment Review, Medications Reviewed, Social history reviewed & non-contributory. Major Childhood Illnesses: reports: denies history Cardiovascular: reports: A-Fib, [place] Respiratory: reports: asthma, COPD, other (seasonal allergies) Gastrointestinal: reports: GERD Genitourinary: reports: cancer (bladder) Musculoskeletal: reports: arthritis, chronic pain Hand Dominance: Right Handed Neurological: reports: denies history Psychiatric: reports: denies history Endocrine/Immune: reports: denies history Other Conditions: reports: cataract/glaucoma - PRIOR SURGERIES/PROCEDURES Surgical/Procedure History: reports: EGD, other (x2 turp) - IMMUNIZATION STATUS Childhood Immunizations: UTD - FAMILY HISTORY Family History: reviewed, not pertinent - SOCIAL HISTORY Smoking: quit greater than 1 year Substance Use: denies Living Situation: care facility Physical Exam-General - PHYSICAL EXAM-ADULT Exam Limited by: pt is confused to person place and time Initial Vital Signs Reviewed: Yes - CONSTITUTIONAL General Appearance: appears well, alert, no apparent distress, obese - EYES Eyes: PERRL/EOMI, pink conjunctivae - HEAD, EARS, NOSE, MOUTH & THROAT HENMT: moist mucous membranes - NECK Neck: non-tender, full range of motion, normal inspection - RESPIRATORY Respiratory: chest non-tender, no pleuratic chest pain, no respiratory distress, no accessory muscle use, rhonchi (bilateral) - CARDIOVASCULAR Cardiovascular: normal peripheral pulses, regular rate, rhythm - CHEST (BREASTS) Chest/Breast: deferred - GASTROINTESTINAL (ABDOMEN) Abdominal Exam: normal bowel sounds, non tender, soft - GENITOURINARY Male Genitalia: deferred, other (pt has henriquez cath in place) Rectal Exam: deferred Hemoccult Exam: deferred - MUSCULOSKELETAL Back Exam: no CVA tenderness, no vertebral tenderness Extremity: normal range of motion, normal capillary refill, other (pt has bandages on BLE from scratching per son at bedside/ 4+ pitting edema BLE) - SKIN Integumentary: normal color, normal turgor, warm/dry - NEUROLOGIC Neurologic: grossly normal - PSYCHIATRIC Psych/Mental Status: normal mood/affect, disoriented x 3 Progress - PLAN OF CARE/RESULTS Result Diagrams: 10/03/19 07:00 10/03/19 07:00 - REASSESSMENT Reassessment #1 Time Reassessed: 17:49 Status: other (STILL PENDING UA TO COME; PATIENT ALTERED FROM BASELINE AND LACTATE ELEVATED; WILL START ANTIOBIOTICS EMPERICALLY WITH VAN AND CEFEPIME.) Reassessment #2 Time Reassessed: 18:06 Status: other (INFECTIOUS SOURCE MOST LILKYE UTI; WILL START CEFTRIXONE. DAY TIME HOSPITALIST WOULD LIKE US TO CALL NIGHT HOSPITALIST; WILL CALL NIGHT HOSPITALISYT.) Reassessment #3 Time Reassessed: 20:16 Status: other (RN BROUGHT TO MY ATTENTION THAT PATIENT IS NOTICED TO HAVE BLEEDING FROM THE LIPS. DURING MY EVALUATION, PATIENT DOES HAVE BLEEDING FROM LOWER LIPS (NO DENTURE) AND FURTHER EVALUATION ALSO REVEALING UPPER PALATE MUCOSAL MILD ABRASION WITH NO ACTIVE BLEEDING. PATIENT AIRWAY IN PATENTT. MALLAPPATI SOCRE OF 1. NOT COUGHING UP BLOOD OR VOMITNG BLOOD.) - XRAY 1 XRAY: Bilateral XRAY Study: Chest Impression: See EMR Report (EXAM: CHEST-PORTABLE 09/29/2019 HISTORY: ams TECHNIQUE: AP portable upright at 1438 COMMENT: The inspiration is slightly less optimal than on 09/16/2019. There continues to be some increased interstitial opacities particularly in the left lower lobe and right upper lobe. IMPRESSION: Stable chest. Electronically signed by Neil Miranda 09/29/2019 2:48 PM 09/29/19 [id number] Interpreting Physician: Neil Miranda MD Dictated Date/Time: 09/29/19 1444 cc: Vesna Hanna MD; Pratik Adam MD) - CT/MRI 1 CT Study: Head Impression: See EMR Report (EXAM: CT HEAD W/O CONTRAST 09/29/2019 HISTORY: ams TECHNIQUE: This exam was performed using automated exposure control, adjustmen t of mA or kV according to patient size, and/or use of iterative reconstruction technique. COMMENT: There is no evidence of mass effect, bleed, or abnormal extra-axial fluid collection. There are calcifications in the vertebral and internal carotid arteries bilaterally. There is partial opacification of the right maxillary sinus. There is also opacification of anterior ethmoid air cells with mucosal thickening throughout the left frontal sinus. The calvarium is intact. IMPRESSION: No evidence of acute intracranial disease. Sinusitis. Electronically signed by Neil Miranda 09/29/2019 3:33 PM 09/29/19 1533 Interpreting Physician: Neil Miranda MD Dictated Date/Time: 09/29/19 1532 cc: Vesna Hanna MD; Pratik Adam MD) Departure - Departure Date of Disposition Decision: 09/29/19 Time of Disposition Decision: 20:23 DIAGNOSIS: AMS (altered mental status), UTI (urinary tract infection) Disposition: ADMITTED INPATIENT 09 Certified Medical Emergency: Emergent Condition: Stable - Critical Care Note This patient required my direct & personal management of CC.: No Attestation - Physician/ LACEY Attestation Patient care was provided by Advanced Practice Provider:: No The physician spent face to face time with patient:: Yes Advanced Practice Provider documentation review:: Supervising physician onsite and consulted in the evaluation and care of this patient. The physician did have a face to face encounter with the patient. This chart was documented by the indicated scribe, (Eileen Hudson Scribe) and accurately reflects the services I performed and decisions made by me, Vesna Hanna MD, as attested by the provider's signature.
[2019-10-03] MEDS ORDERED: TYLENOL PO PRN (17:48)
[2019-10-03] MEDS: KLOR-CON PO SCH ×2 (18:56→21:18)
[2019-10-03] MEDS: ADVAIR 100/50 DISKUS INH SCH (19:25)
[2019-10-03] MEDS ORDERED: PROTONIX PO ONE (19:25)
--- NOTE | 2019-10-03 19:56 | PROGRESS NOTE ---
DATE: 10/03/2019 INTERVAL HISTORY: No acute events overnight. SUBJECTIVE: Mr. Morillo denies any new complaints. He, however, complains of soreness in his throat. He denies any chest pain, shortness of breath. He is occasionally coughing, especially at nighttime. We discussed about urinary tract infection. VITALS: Temperature 98.4 degrees, pulse 88, respiratory rate 20, blood pressure 120/80, saturating 98% on room air. PHYSICAL EXAMINATION: Not in acute distress. Oral cavity is moist. He does have left-sided deviated nasal septum. He has bilateral wheezing. Some of them could also be related to transmitted upper respiratory tract sounds, mild crackles in the infrascapular region. S1, S2 normal, no murmur or gallop. Abdomen: Soft, nontender. Bilateral lower extremity edema. He is alert and oriented x3. LABORATORIES: CBC has normocytic anemia, stable, thrombocytopenia. No new microbiological data. The blood culture drawn on October 01 has not shown any growth. IMAGING: No new imaging. He has a right-sided chest port. ASSESSMENT AND PLAN: 1. Enterococcus faecalis urinary tract infection associated with intermittent self- catheterization leading to septic shock on presentation. His bacteremia has cleared. First day of negative blood culture October 01. Continue intravenous Unasyn. He has a right- sided chest port. Appreciate Infectious Disease recommendations about choice of antibiotics considering and duration considering he has a port and he would go to rehab where the frequency of antibiotic could be an issue. I am keeping him on Unasyn for now. 2. Acute encephalopathy due to sepsis on presentation, now resolved. 3. Severe aortic stenosis. He would need outpatient followup for possible however transcatheter aortic valve replacement (TAVR). 4. Paroxysmal atrial fibrillation. His EKG on current presentation has sinus rhythm with premature supraventricular complexes. Currently acceptable rate. I am holding his Xarelto, considering he may need any invasive intervention like a PICC line in the future. I will keep him on prophylactic dose of deep venous thrombosis prophylaxis. 5. Remote history of about 4 pack per day smoking for about 30 years which he quit in 1974 and history of chronic obstructive pulmonary disease. I will continue him on albuterol ipratropium nebulization and fluticasone salmeterol inhaler. He is on intravenous steroids, which I will transition to oral starting tomorrow. 6. Urinary bladder cancer status post recent chemoradiation. His chemotherapy has been on hold and his last radiation was in August 2019. Oncology team on board. DISPOSITION: I am anticipating discharge early next week once we have rehab bed availability. Plan of care discussed with the patient. His questions have been answered. cc: Jered Mai MD
[2019-10-03] MEDS: MYCOSTATIN SUSP PO SCH ×2 (20:20→21:18)
[2019-10-03] MEDS ORDERED: ROBITUSSIN-DM PO SCH (21:00)
[2019-10-04] MEDS: DUONEB (A & A) INH SCH ×6 (03:38→23:53)
[2019-10-04] MEDS: UNASYN 3 GM/NS 3 GM/100 ML IVPB IV SCH ×4 (03:46→21:01)
[2019-10-04] MEDS: PROTONIX PO SCH (06:04)
[2019-10-04] MEDS: ADVAIR 100/50 DISKUS INH SCH ×2 (08:30→19:46)
[2019-10-04] MEDS ORDERED: XARELTO PO SCH (09:00)
[2019-10-04] MEDS ORDERED: FAMOTIDINE 40 MG PO SCH (09:00)
[2019-10-04] MEDS: FLONASE NAS SCH (10:03)
[2019-10-04] MEDS: ULTRAM PO PRN (10:05)
[2019-10-04] MEDS: PREDNISONE PO SCH (10:09)
[2019-10-04] MEDS: MIRALAX PO SCH ×2 (10:10→10:16)
[2019-10-04] MEDS: LASIX PO SCH (10:10)
[2019-10-04] MEDS: SINGULAIR PO SCH (10:10)
[2019-10-04] MEDS: MYCOSTATIN SUSP PO SCH ×4 (10:10→21:03)
[2019-10-04] MEDS: MYCOSTATIN POWDER TOP SCH ×2 (10:18→23:42)
--- NOTE | 2019-10-04 16:34 | INFECTIOUS DISEASE PROGRESS NO ---
DATE: 10/04/2019 PRESENT ILLNESS: The patient has 1/4 blood cultures positive for Enterococcus. I think this is more likely than not to be a contaminant rather than a pathogen. The patient also has sinusitis. MEDICATIONS: The patient currently is on Unasyn. This is day 2 of treatment with it. The patient's blood cultures drawn on October 01 of this year both were negative and 1/2 blood cultures drawn on the grew Enterococcus and the other was negative. The patient's CBC shows a white count of 7290, hemoglobin 10.9, platelet count of 111,000. Creatinine is 0.8. Liver function studies are normal. Procalcitonin is 0.1 which translates into that it is unlikely the patient has pneumonia. PHYSICAL EXAMINATION: Vital signs: Temperature is 98.3 degrees, pulse 85, respirations 20, blood pressure 114/61. General: The patient is in good spirits. He is talkative and can move his extremities. Head/eyes/ears/nose/throat: He can hear my spoken words and see near objects. He does not have any white coating of his tongue. Neck: No pain with movement. Lungs: Clear to auscultation. Cardiovascular: Heart rate is irregular. Thorax: The patient has a Port-A- Cath in the upper right chest. The site is not erythematous or purulent. Neurologic: The patient is alert. He can move his extremities but he is weak. There is no tremor. LAB AND X-RAY: The patient has had 4 blood cultures drawn, only 1 is positive for Enterococcus. Urine is growing yeast. Procalcitonin is 0.1 which translates into that the patient is unlikely to have pneumonia. His liver function studies are normal. Creatinine is 0.8. CBC shows a white count of 7290, hemoglobin 10.9, and platelet count 111,000. ASSESSMENT AND PLAN: I think that the enterococcal bacteremia is more likely to be a contaminant than a pathogen. The patient does have sinusitis also. For now, we are treating the patient with Unasyn but when he leaves, I think he probably will need only to be on Augmentin for his sinusitis because I doubt the Enterococcus is a pathogen in the blood, I think it is more likely a contaminant. COMORBIDITIES: The patient is elderly. He has bladder cancer and he has to self-catheterize himself. He has atrial fibrillation, COPD and aortic stenosis. cc: Negro Luna MD
[2019-10-04] MEDS ORDERED: ROBITUSSIN-DM PO PRN (16:51)
--- NOTE | 2019-10-04 17:11 | PROGRESS NOTE ---
DATE: 10/04/2019 INTERVAL HISTORY: No acute events overnight. SUBJECTIVE: Mr. Morillo is denying any new complaints. He is feeling fine. He denies any chest pain or shortness of breath. He denies unusual cough except that occasional cough which is slightly worse than his usual. We discussed about possibly contaminant of one of the four Enterococcus blood cultures. We discussed about continuing him on current treatment. I answered all of his questions. He has not had any bowel movements for which we decided to start him on bisacodyl suppositories. OBJECTIVE: Vital Signs: Temperature of 97.7 degrees, pulse 88, respiratory 18, blood pressure 130/73 and saturating 98% on room air. General: Not in acute distress. HEENT: Oral cavity is moist. He still has aphthous ulcer. He still has a superficial ulcer affecting hard palate, likely traumatic. Lungs: Air entry bilaterally equal. Mild end-expiratory wheezes, some of them likely transmitted upper respiratory tract sounds. Mild crackles in infrascapular region. Heart: S1, S2 normal. No murmur or gallop. Abdomen: Soft. Nontender. Extremities: He has bilateral lower extremity edema. Neurologic: He is alert and oriented x3. LABORATORY: No CBC or BMP today. No new microbiological data. Blood cultures drawn on 10/01 has not shown any growth to date. No new imaging. ASSESSMENT AND PLAN: 1. Suspected acute cystitis due to Enterococcus faecalis urinary tract infection associated with intermittent self catheterization. On presentation, he did have severe sepsis with hypotension, which now have resolved. Only 1/4 blood cultures was growing Enterococcus faecalis which could still be a contaminant. Continue intravenous Unasyn as per Infectious Disease recommendation with plan to transition him to oral antibiotics which could take care of his suspected UTI as well as sinusitis. His 1/4 blood cultures could indicate that the Enterococcus faecalis is likely a contaminant. 2. Sepsis and acute encephalopathy on presentation now resolved. 3. Severe aortic stenosis. He would need outpatient followup for possible TAVR. 4. History of paroxysmal atrial fibrillation currently within acceptable range. His heart rate is well controlled. Continue enoxaparin for deep venous thrombosis prophylaxis. I will start him back on his Xarelto at the time of discharge with outpatient follow up with Cardiology. 5. Prior history of tobacco abuse of about 4 pack per day for about 30 years which he quit in 1974 leading to chronic obstructive pulmonary disease with mild acute exacerbation of chronic obstructive pulmonary disease. Continue inhaled bronchodilators and oral steroids. 6. Urinary bladder cancer status post recent chemoradiation. His chemotherapy has been on hold and last radiation was August of 2019 per Oncology team on board. DISPOSITION: Awaiting rehab bed. Accordingly, I am anticipating discharge in the next 24 to 48 hours. Plan of care discussed with the patient. His questions have been answered. I will start him on bisacodyl for constipation. cc: Jered Mai MD
[2019-10-04] MEDS: DULCOLAX PR SCH ×2 (17:19→21:04)
[2019-10-04] MEDS ORDERED: LASIX PO ONE (18:00)
[2019-10-04] MEDS: TYLENOL PO PRN (21:03)
[2019-10-05] MEDS: UNASYN 3 GM/NS 3 GM/100 ML IVPB IV SCH ×3 (02:20→16:43)
[2019-10-05] MEDS: DUONEB (A & A) INH SCH ×4 (03:34→14:54)
[2019-10-05] MEDS: PROTONIX PO SCH (06:20)
[2019-10-05 08:18] LABS: BASO# 0.01 X1000 (0.0-0.2); BASO% 0.2 % (0.0-0.8); EOS# 0.01 X1000 (0.0-0.7); EOS% 0.2 % (0.0-10.0); HEMATOCRIT 33.8 % (42.0-52.0); HEMOGLOBIN 10.9 g/dL (14.0-18.0); IMM GRAN# 0.04 X1000 (0.0-0.04); IMM GRAN% 0.9 % (0.0-0.5); LYMPH# 0.55 X1000 (1.2-3.4); LYMPH% 12.1 % (20.5-51.1); MCH 31.9 PG (27-31); MCHC 32.2 g/dL (33-37); MCV 98.8 FL (81-99); MONO# 0.59 X1000 (0.11-0.59); MPV 11.1 FL (7.4-10.4); NEUT# 3.33 X1000 (1.4-6.5); NEUT% 73.6 % (42.2-75.2); PLT 130 X1000 (130-400); RBC 3.42 XMIL (4.7-6.1); RDW 17.9 % (11.5-14.5); WBC 4.53 X1000 (4.8-10.8)
[2019-10-05] MEDS: ADVAIR 100/50 DISKUS INH SCH (08:41)
[2019-10-05 08:43] LABS: AGAP 6; BUN 14 mg/dL (8-22); CALCIUM 8.1 mg/dL (8.8-10.2); CHLORIDE 104 mmol/L (98-107); COSMO 280; CREATININE 0.9 mg/dL (0.7-1.2); ESTIMATED GFR > 60; GLUCOSE 168 mg/dL (70-104); POTASSIUM 3.9 mmol/L (3.5-5.1); SODIUM 138 mmol/L (136-145); TCO2 28 mmol/L (25-35)
[2019-10-05] MEDS: MYCOSTATIN SUSP PO SCH ×3 (09:18→16:18)
[2019-10-05] MEDS: MYCOSTATIN POWDER TOP SCH (09:18)
[2019-10-05] MEDS: MIRALAX PO SCH (09:18)
[2019-10-05] MEDS: PREDNISONE PO SCH (09:18)
[2019-10-05] MEDS: DULCOLAX PR SCH (09:18)
[2019-10-05] MEDS: LASIX PO SCH (09:18)
[2019-10-05] MEDS: SINGULAIR PO SCH (09:18)
[2019-10-05] MEDS: FLONASE NAS SCH (09:24)
[2019-10-05] MEDS: TYLENOL PO PRN (09:30)
[2019-10-05] MEDS ORDERED: ZAROXOLYN PO SCH (11:30)
--- NOTE | 2019-10-05 13:58 | DISCHARGE SUMMARY ---
ADMISSION DATE: 09/29/2019 DISCHARGE DATE: 10/05/2019 DISCHARGE DISPOSITION: [facility]. DISCHARGE CONDITION: Hemodynamically stable. HOSPITAL COURSE: Mr. Morillo is alert and oriented x3. He denies any chest pain, shortness of breath. He has a urine catheter. He has bilateral lower extremity edema for which he has been restarted on his diuretic regimen. DISCHARGE DIAGNOSES: 1. Suspected acute urinary tract infection due to acute cystitis due to enterococcus UTI. 2. Presumed sepsis. 3. Acute encephalopathy due to sepsis. 4. Severe aortic stenosis. 5. Hypokalemia. 4. Mild acute chronic obstructive pulmonary disease exacerbation during this hospital admission. OTHER DIAGNOSES: 1. History of paroxysmal atrial fibrillation. An episode happened on previous admission at the time of sepsis. 2. History of tobacco abuse of about 4 packs a day for about 30 years, which he quit in 1974. 3. History of chronic obstructive pulmonary disease. 5. Urinary bladder cancer status post recent chemoradiation. 6. 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 7. History of chronic gastroesophageal reflux disease. 8. History of seasonal allergies. DISCHARGE MEDICATIONS: 1. Advair 150 one puff inhaled b.i.d. 2. Combivent Respimat inhaler 1 puff inhaled 4 times a day. 3. Cranberry fruit extract 500 mg daily. 4. Famotidine 40 mg daily. 5. Flonase Allergy Relief 2 sprays nasally daily. 6. Potassium chloride 20 mEq daily. 7. Metolazone 5 mg every 24 hours as needed for lower extremity edema. 8. MiraLAX 17 g daily. 9. Montelukast 10 mg daily. 10. Augmentin 625 mg b.i.d. for 3 days for sinusitis. 11. Lasix 40 mg daily. 12. Prednisone 40 mg daily for 3 days. 13. Acetaminophen 650 mg every 4 hours as needed for pain. VITALS: At the time of discharge, temperature 98.2 degrees, pulse 75, respiratory rate 16, blood pressure 111/57, saturating 100% on room air. PHYSICAL EXAMINATION: Mr. Morillo does not appear in acute distress. Oral cavity: Moist. Lungs: Air entry bilaterally equal. He has mild end-expiratory wheezes. No rhonchi or crackles. He has left-sided deviated nasal septum. Cardiovascular: S1, S2 normal. Systolic murmur affecting left lower sternal border. No rub or gallop. Abdomen: Soft, nontender. Extremities: He has bilateral lower extremity edema. Neurologic: He is alert and oriented x3. His son is at bedside. Input and output suggests -1.9 L over last 24 hours. His presentation is - 5 L. SIGNIFICANT LABS: WBC of 4.5, hemoglobin 10.9, platelet of 130. BUN 14, creatinine 0.9. Sodium 138, potassium 3.9. MICROBIOLOGY: One of the 2 blood cultures on presentation was growing Enterococcus faecalis group D. SIGNIFICANT IMAGING: Head CT on September 29 had no evidence of acute intracranial process. He did have sinusitis. Chest CT had slight progression in moderate pulmonary fibrosis and questionable ankylosing spondylitis. Electrocardiogram on presentation had a sinus rhythm with premature supraventricular complexes. Echocardiogram had ejection fraction of 60 to 65 percent. Right ventricular systolic pressure 59 mmHg, severe aortic stenosis. HOSPITAL COURSE SUMMARY: Mr. Morillo is an 84-year-old man, who has a past medical history of COPD, seasonal allergy, bladder cancer, who presented to the emergency room for acute encephalopathy and suspected urinary tract infection from rehab. In the emergency room, he was found to have temperature of 97.7 degrees, pulse of 93, respiratory rate of 21, blood pressure of 126/64. Head CT performed for acute encephalopathy was unremarkable for acute intracranial pathology. He was started on intravenous fluids, intravenous antibiotics for suspected sepsis due to urinary tract infection, and was admitted for further management. With intravenous fluids and antibiotics, his condition improved. One of the 2 blood cultures was growing Enterococcus faecalis group D, and urine culture grew yeast. New set of blood cultures were obtained 48 hours later, which did not have any growth. It was thought that the Enterococcus faecalis in the culture was just a contaminant. In any case, he improved with intravenous antibiotics and, at the time of discharge, so far he has received almost 7 days of intravenous antibiotics. It was decided to discharge him on just oral antibiotics for his sinusitis. He was kept on urine Giang catheter for urinary retention and, at the time of discharge to rehab, instructions were provided that his Giang catheter should be removed within 2 to 3 days after going to rehab once he would be more ambulatory or it should be changed if he needed Giang catheter for longer time. Once Giang catheter would be removed, he should resume his intermittent self catheterization. On previous admission, he did have episode of irregular heart rhythm, although he was diagnosed with atrial fibrillation this time around. EKG and telemetry revealed he probably had irregular heart rhythm related to premature supraventricular complexes and not to atrial fibrillation. Cardiology team had recommended to possibly consider discontinuing his anticoagulation. He was advised to have outpatient cardiology follow-up for his severe aortic stenosis, and have an outpatient discussion if he would need further anticoagulation and his Xarelto was stopped. More than 30 minutes of time was spent discharging this patient. Plan of care discussed with the patient and his son at bedside extensively. cc: MD SRIDEVI Godinez
[2019-10-05 15:19] VITALS: BP 118/49
== END 2019-10-05 17:35 | DRG 698 ==
LOC: SUPCPDRO → ED 14:01 → SUATTDRO 23:01 → 3N 23:01
PROVIDERS: ATTEND Internal Medicine

== ENCOUNTER 2019-10-13 11:10 | Inpatient (IN) ==
[2019-10-13 12:06] LABS: URINE SOURCE CATH
[2019-10-13 12:12] LABS: ALLEN TEST YES; BE 3.5 mmoll (-3.0-3.0); BLOOD TYPE ARTERIAL; HCO3-(ACT) 27.6 mmoll (20.0-26.0); METHB 1.3 % (0.0-1.5); O2(CT) 16.8 mL/dL (15.0-23.0); O2HB 94.3 % (95.0-99.0); PCO2(98.6) 34 mmHg (35-45); PO2(98.6) 81 mmHg (60-100); SAMPLE BLOOD; THB 12.6 g/dL (11.5-17.4)
[2019-10-13 12:13] LABS: MODALITY ROOM AIR
--- NOTE | 2019-10-13 12:18 | Diag Imaging Result Doc PS360 ---
CHEST-1 VIEW - 10/13/2019 INDICATION: Wheezing, crackles, r/o pneumonia COMPARISON: 09/29/2019 FINDINGS: There is worsening diffuse infiltrate throughout the right upper lobe. Stable patchy fibrosis or areas of atelectasis at the lung bases bilaterally. Heart size remains top normal. No pneumothorax or large pleural effusion. Stable right chest port in good position with the catheter tip at the lower SVC. IMPRESSION: Significant right upper lobe infiltrate compatible with pneumonia. Patchy nonspecific bibasilar fibrosis or atelectasis. Electronically signed by Ilan Leon 10/13/2019 12:16 PM
[2019-10-13 12:22] LABS: BILIRUBIN URINE NEGATIVE (NEGATIVE); BLOOD URINE SMALL (NEGATIVE); COLOR YELLOW; GLUCOSE URINE NEGATIVE (NEGATIVE); KETONE URINE NEGATIVE (NEGATIVE); LEUKOCYTES URINE LARGE (NEGATIVE); NITRITE URINE NEGATIVE (NEGATIVE); PROTEIN URINE TRACE mg/dL (NEGATIVE); TURBIDITY URINE HAZY (CLEAR); UROBILINOGEN URINE NORMAL (NORMAL)
[2019-10-13 12:23] LABS: UR EPITHELIAL CELLS <10 /HPF (<10); URINE BACTERIA 2+ /HPF; URINE RBC <10 /HPF (<10); URINE WBC TNTC /HPF (<10)
[2019-10-13 12:24] LABS: INR 1.44; PROTIME 17.8 Seconds (11.0-16.0)
[2019-10-13 12:25] LABS: PTT 40.8 Seconds (22.3-41.8)
[2019-10-13 12:33] LABS: ALB/GLOB RATIO 0.8; ALBUMIN 2.4 g/dL (3.5-5.0); CREATININE 1.3 mg/dL (0.7-1.2); MAGNESIUM 1.4 mg/dL (1.5-2.7); TOTAL BILIRUBIN 1.67 mg/dL (0.20-1.00); TOTAL PROTEIN 5.4 g/dL (6.3-8.3)
[2019-10-13 12:34] LABS: BASO# 0.16 X1000 (0.0-0.2); HEMOGLOBIN 12.1 g/dL (14.0-18.0); IMM GRAN# 0.09 X1000 (0.0-0.04); IMM GRAN% 0.6 % (0.0-0.5); LYMPH# 0.79 X1000 (1.2-3.4); LYMPH% 5.1 % (20.5-51.1); MCHC 32.7 g/dL (33-37); MCV 94.9 FL (81-99); MPV 11.5 FL (7.4-10.4); NEUT# 13.06 X1000 (1.4-6.5); NEUT% 84.3 % (42.2-75.2); PLT 114 X1000 (130-400); RDW 17.3 % (11.5-14.5)
--- NOTE | 2019-10-13 13:07 | Diag Imaging Result Doc PS360 ---
EXAM: CT HEAD W/O CONTRAST INDICATION: AMS TECHNIQUE: This exam was performed using automated exposure control, adjustment of mA or kV according to patient size, and/or use of iterative reconstruction technique. COMPARISON: 09/29/2019 FINDINGS: There is stable diffuse brain atrophy and suggestion of moderate white matter microangiopathy. There is no definite acute infarct given the limited sensitivity of CT versus MRI. There is no discrete intracranial mass, mass effect, or intracranial hemorrhage. Paranasal sinus mucosal disease is again noted similar to the previous study. Surrounding soft tissues and bony structures are essentially unremarkable, otherwise. IMPRESSION: 1.Stable chronic intracranial changes. No evidence of acute intracranial pathology by CT. 2.Paranasal sinus mucosal disease similar to the previous study. Electronically signed by Aung Kay 10/13/2019 1:04 PM
[2019-10-13] MEDS ORDERED: ZOSYN 4.5 GM in NS 100 ML IV ONE (13:56)
[2019-10-13] MEDS ORDERED: LEVAQUIN 750 MG/D5W 750 MG/150 ML IVPB IV ONE (13:56)
[2019-10-13] MEDS ORDERED: VANCOMYCIN 1 GM/NS 1 GM/250 ML IVPB IV ONE (13:56)
[2019-10-13] MEDS ORDERED: SODIUM CHLORIDE IV ONE (13:56)
--- NOTE | 2019-10-13 13:59 | EKG Report ---
Test Performed on : 10/13/2019 1:55:19 PM Test Reason : CP Blood Pressure : / mmHG Vent. Rate : 077 BPM Atrial Rate : 131 BPM P-R Int : 000 ms QRS Dur : 108 ms QT Int : 488 ms P-R-T Axes : 000 -69 256 degrees QTc Int : 552 ms Atrial fibrillation. Left axis deviation Inferior infarct (cited on or before 08-MAY-2018) Anterolateral infarct (cited on or before 08-MAY-2018) Prolonged QT Abnormal ECG When compared with ECG of 13-OCT-2019 13:54, (Unconfirmed) No significant change was found Unconfirmed Result
[2019-10-13] MEDS ORDERED: VANCOMYCIN IV PER PHARMACY MISC SCH (14:30)
[2019-10-13] MEDS ORDERED: DUONEB (A & A) INH ONE (14:32)
[2019-10-13] MEDS ORDERED: TYLENOL PO PRN (14:48)
[2019-10-13] MEDS ORDERED: VANCOMYCIN 2,000 MG in NS 500 ML IV ONE ×2 (16:00→21:00)
--- NOTE | 2019-10-13 17:11 | PROVIDER DOCUMENTATION ---
This chart was entered by Eileen Hudson Scribe, acting as scribe for Bekah Parekh MD. HPI-Neurological Disorder - General Chief Complaint: Altered Mental Status Stated Complaint: ams Time Seen by Provider: 10/13/19 11:21 Source: patient, family (son), EMS (first response) Allergies/Adverse Reactions: Patient Allergies Allergy/AdvReac Type Severity Reaction Status Date / Time codeine AdvReac Unknown Verified 10/13/19 15:47 Home Medications: Home Medication List Medication Instructions Recorded Confirmed Last Taken Type Fluticasone/Salmet 100/50 INH 1 puff INH RTBID 09/10/14 10/13/19 10/13/19 History [Advair 100/50 Diskus] Montelukast Chew [Singulair] 10 mg PO DAILY 09/10/14 10/13/19 10/12/19 History Cranberry Fruit Extract [Cranberry] 500 mg PO DAILY 05/08/18 10/13/19 10/12/19 History Fluocinonide 0.05% Cream [Lidex 1 applicatn TOP PRN PRN 05/08/18 10/13/19 10/13/19 History 0.05% Cream] Ipratropium/Albuterol INH 1 puff INH 4XDAY 05/08/18 10/13/19 10/13/19 History [Combivent Respimat Inhaler] Potassium Chloride [Klor-Con M20] 20 meq PO DAILY 08/25/19 10/13/19 10/12/19 History Acetaminophen [Tylenol] 650 mg PO Q4H PRN PRN tab 09/17/19 10/13/19 10/12/19 Rx Famotidine 40 mg PO DAILY 09/29/19 10/13/19 10/12/19 History Metolazone 5 mg PO Q24H PRN PRN 09/29/19 10/13/19 10/12/19 History Polyethylene Glycol 3350 [Miralax] 17 gm PO DAILY 09/29/19 10/13/19 10/12/19 History Furosemide [Lasix] 40 mg PO DAILY #1 10/05/19 10/13/19 10/12/19 Rx - History of Present Illness-Neuro Nature of Presenting Problem: 84 yom presents to the ed via ems with c/o ams. pt has been admitted to [facility] on 09/10/19 and 09/29/19 for sepsis both times. pt is known to have frequent UTI's. per son at baseline prior to this run of issues pt was living at home and t aking care of himself. pt at baseline is a/o x3 and ambulates. pt on exam is ill appearing and confused to time place and person. pt not complaining of any pain and is agitated and anxious on exam. Severity: reports: moderate Onset/Duration: reports: unsure Timing: reports: still present, constant Context: reports: other (confused). denies: facial droop Character of Altered Mental Status: reports: confused, agitated Any recent trauma/injury?: reports: none Cognitive Baseline: alert, oriented x3 Gait Baseline: walks without assistance Associated Symptoms: reports: confusion. denies: chest pain, nausea, slurred speech, vomiting, weakness Similar Symptoms Previously?: Yes (frequent UTI admitted on 09/10/19 and ) Recently seen or treated by another doctor?: Yes (admitted ) Review of Systems - Adult - REVIEW OF SYSTEMS - ADULT ROS:: ROS per family (son) Constitutional: reports: no symptoms reported Eyes: reports: no symptoms reported Ears, Nose, Mouth & Throat: reports: no symptoms reported Cardiovascular: denies: chest pain, palpitations Respiratory: denies: cough, shortness of breath, wheezing Gastrointestinal: denies: diarrhea, nausea, vomiting Genitourinary: reports: see HPI, frequent UTI's. denies: flank pain Musculoskeletal: denies: back pain, neck pain Integumentary: reports: no symptoms reported Neurological: reports: see HPI, other (confusion). denies: ataxia, dizziness/vertigo, headache/migraines, numbness, paresthesia, slurred speech, syncope Psychiatric: reports: no symptoms reported Endocrine: reports: no symptoms reported Hematologic/Lymphatic: reports: no symptoms reported Allergic/Immunologic: reports: no symptoms reported All Other Systems: Reviewed and Negative Past History - Adult - PAST MEDICAL HISTORY-ADULT Review of Records: reports: Old Records Reviewed, Nursing Assessment Review, Medications Reviewed, Social history reviewed & non-contributory. Major Childhood Illnesses: reports: denies history Cardiovascular: reports: A-Fib, CHF, HTN Respiratory: reports: asthma, COPD, other (seasonal allergies) Gastrointestinal: reports: GERD Genitourinary: reports: cancer (bladder), chronic UTI's Musculoskeletal: reports: arthritis Neurological: reports: denies history Psychiatric: reports: denies history Endocrine/Immune: reports: denies history Other Conditions: reports: cataract/glaucoma - PRIOR SURGERIES/PROCEDURES Surgical/Procedure History: reports: EGD - IMMUNIZATION STATUS Childhood Immunizations: UTD - FAMILY HISTORY Family History: reviewed, not pertinent - SOCIAL HISTORY Smoking: quit greater than 1 year Substance Use: denies Living Situation: care facility Physical Exam- Neurological - Physical Exam-Neuro General Appearance: alert, no apparent distress, anxious, other (confused). negative: appears well (ill appearaing) Eye Exam: bilateral eye: normal inspection, PERRL, EOMI HENMT: moist mucous membranes Head Injury: no evidence of injury Neck: non-tender, full range of motion, supple, normal inspection Respiratory: chest non-tender, crackles, wheezing, other (rt chest port) Cardiovascular: normal peripheral pulses, regular rate, rhythm Abdominal Exam: normal bowel sounds, non tender, soft Lymphatic: no adenopathy Extremity: non-tender, other (+4 pitting edema below knee level with bullae). 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 Exam: PERRL Integumentary: normal color, normal turgor, warm/dry Psych/Mental Status: disoriented x 3 - Glascow Coma Scale Best Eye Response: (4) open spontaneously Best Verbal Response: (4) confused conversation Best Motor Response: (5) localizes to pain Total Glascow Score: 13 Progress - PLAN OF CARE/RESULTS Progress/Plan/Lab Results: Vital Signs - 8 hr 10/13/19 12:01 10/13/19 13:17 10/13/19 14:25 Temperature 97.7 F 98.2 F Pulse Rate 78 77 76 Respiratory Rate 18 12 17 Blood Pressure 106/59 102/38 101/62 O2 Sat by Pulse Oximetry 97 94 L 96 Laboratory Results - last 24 hr 10/13/19 10/13/19 10/13/19 11:44 11:44 11:44 WBC 15.50 H RBC 3.90 L Hgb 12.1 L Hct 37.0 L MCV 94.9 MCH 31.0 MCHC 32.7 L RDW Std Deviation 17.3 H Plt Count 114 L MPV 11.5 H Immature Gran % (Auto) 0.6 H Neut % (Auto) 84.3 H Lymph % (Auto) 5.1 L [place] % (Auto) 9.0 Eos % (Auto) 0.0 Baso % (Auto) 1.0 H Immature Gran # (Auto) 0.09 H Neut # (Auto) 13.06 H Lymph # (Auto) 0.79 L [place] # (Auto) 1.40 H Eos # (Auto) 0.00 Baso # (Auto) 0.16 PT INR PTT (Actin FS) Specimen Type Sample Site pH pCO2 pO2 HCO3 Base Excess Oxyhemoglobin ABG O2 Sat (Calculated) ABG O2 Saturation ABG Carboxyhemoglobin ABG Methemoglobin Hayden Test A-a O2 Difference Total Hemoglobin Lactate Blood Gas Modality FiO2 % Sodium 141 Potassium 4.0 Chloride 100 Carbon Dioxide 27 Anion Gap 14 BUN 38 H Creatinine 1.3 H Estimated GFR/1.73 m2 52 BUN/Creatinine Ratio 29 Glucose 124 H Calculated Osmolality 292 Calcium 8.0 L Magnesium 1.4 L Total Bilirubin 1.67 H AST 23 ALT 19 Alkaline Phosphatase 107 Creatine Kinase 132 Troponin T High Sens Udt-M-Wikzylhgowf Pept Total Protein 5.4 L Albumin 2.4 L Globulin 3.0 Albumin/Globulin Ratio 0.8 Plasma Lactate 2.4 H Urine Source Urine Color Urine Turbidity Urine pH Ur Specific [place] Urine Protein Ur Glucose (Stick) Ur Ketones (Stick) Urine Blood Urine Nitrite Urine Bilirubin Urobilinogen Dipstick Urine Leukocytes Urine WBC (Auto) Urine RBC (Auto) U Epithel Cells (Auto) Urine Bacteria (Auto) 10/13/19 10/13/19 10/13/19 11:44 11:44 11:44 WBC RBC Hgb Hct MCV MCH MCHC RDW Std Deviation Plt Count MPV Immature Gran % (Auto) Neut % (Auto) Lymph % (Auto) [place] % (Auto) Eos % (Auto) Baso % (Auto) Immature Gran # (Auto) Neut # (Auto) Lymph # (Auto) [place] # (Auto) Eos # (Auto) Baso # (Auto) PT 17.8 H INR 1.44 PTT (Actin FS) 40.8 Specimen Type Sample Site pH pCO2 pO2 HCO3 Base Excess Oxyhemoglobin ABG O2 Sat (Calculated) ABG O2 Saturation ABG Carboxyhemoglobin ABG Methemoglobin Hayden Test A-a O2 Difference Total Hemoglobin Lactate Blood Gas Modality FiO2 % Sodium Potassium Chloride Carbon Dioxide Anion Gap BUN Creatinine Estimated GFR/1.73 m2 BUN/Creatinine Ratio Glucose Calculated Osmolality Calcium Magnesium Total Bilirubin AST ALT Alkaline Phosphatase Creatine Kinase Troponin T High Sens 78 H Eag-X-Ihauwxlhtbc Pept 2758 H Total Protein Albumin Globulin Albumin/Globulin Ratio Plasma Lactate Urine Source Urine Color Urine Turbidity Urine pH Ur Specific [place] Urine Protein Ur Glucose (Stick) Ur Ketones (Stick) Urine Blood Urine Nitrite Urine Bilirubin Urobilinogen Dipstick Urine Leukocytes Urine WBC (Auto) Urine RBC (Auto) U Epithel Cells (Auto) Urine Bacteria (Auto) 10/13/19 10/13/19 10/13/19 11:52 12:00 14:27 WBC RBC Hgb Hct MCV MCH MCHC RDW Std Deviation Plt Count MPV Immature Gran % (Auto) Neut % (Auto) Lymph % (Auto) [place] % (Auto) Eos % (Auto) Baso % (Auto) Immature Gran # (Auto) Neut # (Auto) Lymph # (Auto) [place] # (Auto) Eos # (Auto) Baso # (Auto) PT INR PTT (Actin FS) Specimen Type ARTERIAL Sample Site R RADIAL pH 7.50 H pCO2 34 L pO2 81 HCO3 27.6 H Base Excess 3.5 H Oxyhemoglobin 94.3 L ABG O2 Sat (Calculated) 16.8 ABG O2 Saturation 98.0 ABG Carboxyhemoglobin 2.50 ABG Methemoglobin 1.3 Hayden Test YES A-a O2 Difference 26.0 Total Hemoglobin 12.6 Lactate 2.40 H Blood Gas Modality ROOM AIR FiO2 % 21.0 Sodium Potassium Chloride Carbon Dioxide Anion Gap BUN Creatinine Estimated GFR/1.73 m2 BUN/Creatinine Ratio Glucose Calculated Osmolality Calcium Magnesium Total Bilirubin AST ALT Alkaline Phosphatase Creatine Kinase Troponin T High Sens Zub-Z-Zrqcftzizij Pept Total Protein Albumin Globulin Albumin/Globulin Ratio Plasma Lactate 2.6 H Urine Source CATH Urine Color YELLOW Urine Turbidity HAZY Urine pH 6.0 Ur Specific [place] 1.010 Urine Protein TRACE A Ur Glucose (Stick) NEGATIVE Ur Ketones (Stick) NEGATIVE Urine Blood SMALL A Urine Nitrite NEGATIVE Urine Bilirubin NEGATIVE Urobilinogen Dipstick NORMAL Urine Leukocytes LARGE A Urine WBC (Auto) TNTC A Urine RBC (Auto) <10 U Epithel Cells (Auto) <10 Urine Bacteria (Auto) 2+ Orders Category Date Time Status Admit - [facility] Routine AdmDCTranf 10/13/19 14:48 Active Activity - Up with Assistance ORDERED Care 10/13/19 14:48 Active Apply Mechanical Device [QM] ORDERED Care 10/13/19 18:18 Active Cardiac Monitoring DIRECTED Care 10/13/19 11:37 Active Elevate Head of Bed DIRECTED Care 10/13/19 18:18 Active Encourage Fluids DIRECTED Care 10/13/19 18:18 Active Giang Cath Insertion ORDERED Care 10/13/19 11:39 Active IV Insertion ORDERED Care 10/13/19 11:37 Completed Intake and Output-Strict Q 8-HR ASSESS Care 10/13/19 18:18 Active Notify MD of + Sepsis Screen NOW Care 10/13/19 11:37 Active Notify Physician As Ordered Care 10/13/19 11:37 Active Nursing- Assist w/ IS as order ORDERED Care 10/13/19 18:18 Active Turn, Cough and Deep Breathe Q2HR Care 10/13/19 18:18 Active Update & Confirm Home Medicati ROUTINE Care 10/13/19 14:48 Active Vital Signs Order Q 4-HR ASSESS Care 10/13/19 18:18 Active Z-Document. for Tele Applied ORDERED Care 10/13/19 18:18 Completed Social Service Consult Routine Cons 10/13/19 18:18 Active Heart Healthy Diet Diet 10/13/19 14:48 Completed CHEST-1 VIEW [RAD] Stat Exams 10/13/19 11:37 Completed CHEST-2 VIEWS [RAD] Routine Exams 10/14/19 06:[address] HEAD W/O CONTRAST [CT] Stat Exams 10/13/19 11:41 Completed ABG [RESP] Routine Lab 10/13/19 12:00 Completed BLOOD CULTURE [BLDCUL] Stat Lab 10/13/19 11:44 Received BNP [PRO B-NATRIURETIC PEPTIDE] Stat Lab 10/13/19 11:44 Completed CBC WITH DIFF [HEME] Q24H Lab 10/14/19 06:00 Ordered CBC WITH DIFF [HEME] Q24H Lab 10/15/19 06:00 Ordered CBC WITH DIFF [HEME] Q24H Lab 10/16/19 06:00 Ordered CBC WITH DIFF [HEME] Q24H Lab 10/17/19 06:00 Ordered CBC WITH DIFF [HEME] Q24H Lab 10/18/19 06:00 Ordered CBC WITH DIFF [HEME] Q24H Lab 10/19/19 06:00 Ordered CBC WITH DIFF [HEME] Q24 Lab 10/20/19 06:00 Ordered CBC WITH DIFF [HEME] Stat Lab 10/13/19 11:44 Completed CK PROFILE [SP CHEM] Stat Lab 10/13/19 11:44 Completed COMPREHENSIVE METABOLIC PANEL [CHEM] Q24 Lab 10/14/19 06:00 Ordered COMPREHENSIVE METABOLIC PANEL [CHEM] Q24 Lab 10/15/19 06:00 Ordered COMPREHENSIVE METABOLIC PANEL [CHEM] Q24 Lab 10/16/19 06:00 Ordered COMPREHENSIVE METABOLIC PANEL [CHEM] Q24 Lab 10/17/19 06:00 Ordered COMPREHENSIVE METABOLIC PANEL [CHEM] Q24 Lab 10/18/19 06:00 Ordered COMPREHENSIVE METABOLIC PANEL [CHEM] Q24 Lab 10/19/19 06:00 Ordered COMPREHENSIVE METABOLIC PANEL [CHEM] Q24 Lab 10/20/19 06:00 Ordered COMPREHENSIVE METABOLIC PANEL [CHEM] Stat Lab 10/13/19 11:44 Completed LACTATE, PLASMA [CHEM] Lab 10/13/19 14:27 Completed LACTATE, PLASMA [CHEM] Lab 10/13/19 17:45 Uncollected LACTATE, PLASMA [CHEM] Q3H Lab 10/13/19 11:44 Completed MAGNESIUM [CHEM] Q24 Lab 10/14/19 06:00 Ordered MAGNESIUM [CHEM] Q24 Lab 10/15/19 06:00 Ordered MAGNESIUM [CHEM] Q24 Lab 10/16/19 06:00 Ordered MAGNESIUM [CHEM] Q24 Lab 10/17/19 06:00 Ordered MAGNESIUM [CHEM] Q24 Lab 10/18/19 06:00 Ordered MAGNESIUM [CHEM] Q24 Lab 10/19/19 06:00 Ordered MAGNESIUM [CHEM] Q24 Lab 10/20/19 06:00 Ordered MAGNESIUM [CHEM] Stat Lab 10/13/19 11:44 Completed PROTIME WITH INR [COAG] Stat Lab 10/13/19 11:44 Completed PTT [COAG] Stat Lab 10/13/19 11:44 Completed SPUTUM CULTURE WITH GRAM STAIN [RM] Routine Lab 10/13/19 14:48 Uncollected TROPONIN T HIGH SENSITIVITY Stat Lab 10/13/19 11:44 Completed URINALYSIS W/POSS RFLX CULT [URINALYSIS] Stat Lab 10/13/19 11:52 Completed URINE CULTURE [RM] Routine Lab 10/13/19 11:52 Received 0.9% Sodium Chloride Inj [Ns] 2,790 ml Med 10/13/19 13:56 Discontinued IV 999 mls/hr Acetaminophen [Tylenol] Med 10/13/19 14:48 Discontinued 650 mg PO Q4H PRN PRN Albuterol 2.5MG/Ipratrop 0.5MG [Duoneb (A & A)] Med 10/13/19 14:32 Discontinued 3 ml INH NOW ONE Albuterol 2.5MG/Ipratrop 0.5MG [Duoneb (A & A)] Med 10/13/19 16:00 Active 3 ml INH RTQ6H Levofloxacin 750 mg/D5w [Levaquin 750 mg/D5w] Med 10/13/19 13:56 Discontinued 750 mg in 150 ml IV NOW Pharmacy Order [Vancomycin IV Per Pharmacy] Med 10/13/19 14:30 Active 1 each MISC DIRECTED Piperacillin/Tazobactam [Zosyn] 3.375 gm Med 10/13/19 20:30 Active 0.9% Sodium Chloride Inj [Ns] 50 ml IV Q6H Piperacillin/Tazobactam [Zosyn] 4.5 gm Med 10/13/19 13:56 Discontinued 0.9% Sodium Chloride Inj [Ns] 100 ml IV NOW Vancomycin 2,000 mg Med 10/13/19 16:00 Discontinued 0.9% Sodium Chloride Inj [Ns] 500 ml IV ONCE Aerosol Treatments Routine Ot 10/13/19 14:33 Completed Aerosol Treatments Routine Ot 10/13/19 14:48 Completed Aerosol Treatments Stat Ot 10/13/19 14:33 Completed Incentive Spirometer Routine Ot 10/13/19 18:18 Active Oxygen Device Routine Ot 10/13/19 18:18 Active Oxygen Device Stat Ot 10/13/19 11:37 Completed Pulse Oximetry Routine Ot 10/13/19 18:18 Active Telemetry [OM.EQ] Routine Oth 10/13/19 18:18 Active EKG [EKG] Stat Ther 10/13/19 11:39 Draft Physical Therapy Eval/Treatment [OM.PT] Routine Ther 10/13/19 18:18 Active Swallow Evaluation [OM.SPT] Routine Ther 10/13/19 15:35 Active Transfer/Admit Order [TRANSFER] Routine Transfer 10/13/19 14:39 Completed Result Diagrams: 10/13/19 11:44 10/13/19 11:44 - EKG 1 Time of EKG reading by physician:: 14:00 EKG Read and Signed by:: Bekah Parekh EKG Interpretation (*Must complete 3 of following elements*): Abnormal Rate: 77 Rhythm: afib [place]: left ST Wave: depressed (T wave depression V3-V6- changed form prior dated 10/01/2019) Prior EKG Comparison: changes noted - XRAY 1 XRAY: Bilateral XRAY Study: Chest Impression: See EMR Report (CHEST-1 VIEW - 10/13/2019 INDICATION: Wheezing, crackles, r/o pneumonia COMPARISON: 09/29/2019 FINDINGS: There is worsening diffuse infiltrate throughout the right upper lobe. Stable patchy fibrosis or areas of atelectasis at the lung bases bilaterally. Heart size remains top normal. No pneumothorax or large pleural effusion. Stable right chest port in good position with the catheter tip at the lower SVC. IMPRESSION: Significant right upper lobe infiltrate compatible with pneumonia. Patchy nonspecific bibasilar fibrosis or atelectasis. Electronically signed by Ilan Leon 10/13/2019 12:16 PM 10/13/19 1216 Interpreting Physician: Ilan Leon MD Dictated Date/Time: 10/13/19 1214 cc: Bekah Parekh MD; Pratik Painting MD) - CT/MRI 1 CT Study: Head Impression: See EMR Report (EXAM: CT HEAD W/O CONTRAST INDICATION: AMS TECHNIQUE: This exam was performed using automated exposure control, adjustment of mA or kV according to patient size, and/or use of iterative reconstruction technique. COMPARISON: 09/29/2019 FINDINGS: There is stable diffuse brain atrophy and suggestion of moderate white matter microangiopathy. There is no definite acute infarct given the limited sensitivity of CT versus MRI. There is no discrete intracranial mass, mass effect, or intracranial hemorrhage. Paranasal sinus mucosal disease is again noted similar to the previous study. Surrounding soft tissues and bony structures are essentially unremarkable, otherwise. IMPRESSION: 1.Stable chronic intracranial changes. No evidence of acute intracranial pathology by CT. 2.Paranasal sinus mucosal disease similar to the previous study. Electronically signed by Aung Kay 10/13/2019 1:04 PM 10/13/19 1304 Interpreting Physician: Aung Kay MD Dictated Date/Time: 10/13/19 1302 cc: Bekah Parekh MD; Pratik Adam MD) - CONSULTS/PCP/HOSPITALIST Notification #1 *Consult/PCP/Hospitalist*: SASHA Reardon Time Discussed: 14:23 Consult Disposition: Admit Departure - Departure Date of Disposition Decision: 10/13/19 Time of Disposition Decision: 14:23 DIAGNOSIS: Metabolic acidosis with respiratory alkalosis, Elevated troponin, Thrombocytopenia, Normocytic anemia, Hypomagnesemia, LFTs abnormal Sepsis Qualifiers: Sepsis type: sepsis due to unspecified organism Sepsis acute organ dysfunction status: with acute organ dysfunction Severe sepsis acute organ dysfunction type: acute renal failure Acute renal failure type: unspecified Severe sepsis shock status: without septic shock Qualified Code(s): A41.9 - Sepsis, unspecified organism; R65.20 - Severe sepsis without septic shock; N17.9 - Acute kidney failure, unspecified Pneumonia Qualifiers: Pneumonia type: due to unspecified organism Laterality: right Lung location: upper lobe of lung Qualified Code(s): J18.1 - Lobar pneumonia, unspecified organism UTI (urinary tract infection) Qualifiers: Urinary tract infection type: site unspecified Hematuria presence: with hematuria Qualified Code(s): N39.0 - Urinary tract infection, site not sp ecified; R31.9 - Hematuria, unspecified AMS (altered mental status) Qualifiers: Altered mental status type: disorientation Qualified Code(s): R41.0 - Disorientation, unspecified Congestive heart disease Qualifiers: Heart failure type: unspecified Heart failure chronicity: acute on chronic Qualified Code(s): I50.9 - Heart failure, unspecified Disposition: ADMITTED INPATIENT 09 Certified Medical Emergency: Emergent Condition: Stable - Critical Care Note This patient required my direct & personal management of CC.: Yes Attestation - Physician/ LACEY Attestation Patient care was provided by Advanced Practice Provider:: No The physician spent face to face time with patient:: Yes Advanced Practice Provider documentation review:: Supervising physician onsite and consulted in the evaluation and care of this patient. The physician did have a face to face encounter with the patient. This chart was documented by the indicated scribe, (Eileen Hudson Scribe) and accurately reflects the services I performed and decisions made by me, Bekah Parekh MD, as attested by the provider's signature.
--- NOTE | 2019-10-13 17:40 | HISTORY AND PHYSICAL ---
PRIMARY CARE PROVIDERS: Leona Ruiz. CHIEF COMPLAINT: Shortness of breath and falls with confusion. HISTORY OF PRESENT ILLNESS: Mr. Jayesh Morillo is an 84-year-old male who most recently had an admission earlier this month from 09/29 to 10/05 with acute cystitis secondary to Enterococcus urinary tract infection, sepsis, encephalopathy, severe aortic stenosis with a mild COPD exacerbation. He was discharged to [facility] and apparently he has been having some falls there. The son was contacted this morning about the patient following having increased confusion. He came here, had a head CT, no acute pathology. Still with some sinus disease that was no change. Found to have some mild acute kidney injury, it looks to be most likely another urinary tract infection and newly found right upper lobe pneumonia. The nurse at the bedside states that he chokes and carries on with liquids with significant signs of aspiration. The patient is becoming increasingly more confused and agitated. He does show signs of sepsis, so we are going to transfer to the [facility] for closer observation and management. Also found present on admission is stage II decubitus on his buttocks. He also has 4+ lower extremity edema with some bullae have not opened and then other areas that have opened that are weeping. PAST MEDICAL HISTORY: 1. COPD. 2. Seasonal allergies. 3. GERD. 4. Arthritis. 5. Bladder cancer with tumor removal and self-catheterization. 6. Chronic frequent urinary tract infections. 7. Atrial fibrillation. 8. Congestive heart failure with severe aortic stenosis. SURGICAL HISTORY: 1. Bladder tumor removal. 2. Right port placement. 3. Bilateral cataract. SOCIAL HISTORY: Four pack per day smoker for 30 years. He quit 1974. No alcohol or illicit drug use. He has currently been in [facility] for rehab. Uses a walker for ambulation. FAMILY HISTORY: Unknown. ALLERGIES: Codeine. HOME MEDICATIONS: Have not been reconciled, but his discharge medications on the was: 1. Advair 150 1 puff inhaled twice a day. 2. Combivent Respimat inhaler 1 puff inhaled 4 times a day. 3. Cranberry fruit extract 500 mg p.o. daily. 4. Pepcid 40 mg p.o. daily. 5. Flonase Allergy Relief 2 sprays nasal daily. 6. Potassium chloride 20 mEq daily. 7. Metolazone 5 mg every 24 hours as needed for lower extremity edema. 8. MiraLAX 17 g daily. 9. Singular 10 mg daily. 10. Augmentin 625 mg p.o. twice daily. He was only to get that for 3 days, so that would have ended on the . 11. Lasix 40 mg daily. 12. Prednisone 40 mg daily for 3 days. 13. Tylenol 650 mg p.o. every 4 hours as needed for pain. REVIEW OF SYSTEMS: Difficult to obtain due to the patient's agitation status. He does complain of his bottom hurting, which is positive for a stage II decubitus. PHYSICAL EXAMINATION: VITAL SIGNS: Temperature 98.2 degrees, heart rate respiratory rate 18, blood pressure 111/56, O2 saturation 96% on room air. GENERAL: Mr. Jayesh Morillo is an 84-year-old male. He is becoming increasingly agitated, not yet aggressive, but getting the air. He will not really answer questions other than requesting something to drink due to his agitation. HEENT: Atraumatic, normocephalic. Pupils equal, round, reactive to light, mucous membranes are dry. NECK: Trachea midline. Negative for carotid bruits. Neck makes it difficult to assess for JVD. CARDIOVASCULAR: S1, S2. Regular rate and rhythm. No rubs, gallops. He does have a systolic ejection murmur. PULMONARY: Inspiratory wheezes and rhonchi throughout anteriorly. No accessory muscle use or work of breathing noted. He is tolerating room air. GI: Soft, nontender, nondistended. Positive bowel sounds x4 next EXTREMITIES: 4+ lower extremity pitting edema with weeping lower extremities and bullous lesions. 1+ pedal pulses, +2 radial pulses. Extremities decreased range of motion and strength in all extremities equally. NEUROLOGIC: Oriented to name only, is agitated and him purposefully will not follow commands, but is very purposeful with his actions. SKIN: Warm, dry. Lower extremities have the bullous lesions where several have been opened and he has weeping and then he has stage II decubitus on his bottom or sacrum with some part purple hue to some of the areas that is somewhat blanchable. LABORATORY DATA: White blood cells 15,000, hemoglobin 12, hematocrit 37, platelet count 114,000. INR is 1.44, PTT is 40.8. ABGs on room air, pH 7.50, pCO2 34, PO2 81, bicarb 27, base excess is 3.5, saturation 94.3%, lactate 2.4. Sodium 141, potassium 4.0, BUN 38, creatinine is 1.3, glucose 124, calcium 8.0, magnesium 1.5, bilirubin 1.67, AST 23, ALT 19, CK 132. Troponin is 78. ProBNP is 2758, albumin 2.4. Lactate 2.4. Urinalysis trace protein, small blood, large leukocytes, too numerous to count white blood cells, 2+ bacteria. Micro urine culture and blood cultures pending. He has had a urine culture most recently 2 days ago on the , currently growing gram-negative rods and on the he had yeast aand he also had Enterococcus faecalis in the blood and in August he had Pseudomonas aeruginosa in his urine as well. IMAGING: Head CT negative, but he does have some continued paranasal sinus mucosal disease. A chest x-ray significant right upper lobe infiltrate compatible with pneumonia. EKG atrial fibrillation rate was 77. QT was 552. ASSESSMENT/PLAN: 1. Sepsis secondary to urinary tract infection and right upper lobe pneumonia. He has already received IV fluid hydration. However, he also appears to be in acute heart failure, so he has received the IV fluid hydration. He has been started on broad-spectrum antibiotics. We will keep him NPO as he appears to be aspirating. 2. Right upper lobe pneumonia with high suspicion for aspiration. Nurse reports at the bedside that he appears to be aspirating with clear liquids, so we will keep him NPO except for some ice chips, and we will give him a get him a swallow evaluation. Nebulizers, antibiotics. We will attempt to get a sputum culture. We will monitor him a little more closely in the PVC. 3. Acute heart failure with severe aortic stenosis. His proBNP is much more elevated. This admission is 2758, last admission it was only 564. He may benefit from a dose of Lasix. 4. Acute kidney injury. Maybe just intravascularly dry. Again he did receive some IV fluids on admission. We will recheck in the morning. 5. Chronic atrial fibrillation. He is not on any blood thinners at home or medications for rate control. However, his rate is controlled. 6. Bilateral lower extremity bullous lesions that have opened and a sacral decubitus stage II. Wound care is consulted. 7. History of bladder cancer. He self catheterizes, but will have a continuous Giang at this time. 8. Gastroesophageal reflux disease. We will continue probably the Pepcid once is verified. 9. Chronic obstructive pulmonary disease. There is no signs of exacerbation at this time. However, it is high risk since he has pneumonia. 10. Deep venous thrombosis prophylaxis sequential compression devices. Dictated by SASHA Nino for Jered Mai MD cc: SASHA Nino MD I agree with most components of history, physical, assessment and plan. A separate addendum has been dictated. MTDD
--- NOTE | 2019-10-13 20:06 | HISTORY AND PHYSICAL ---
ADDENDUM: I agree with most comments of history, physical, assessment, and plan. In brief, Mr. Morillo is an 84-year-old man with past medical history of COPD with pulmonary fibrosis, severe aortic stenosis, paroxysmal atrial fibrillation, 4 [id number] smoking history which he quit in 1974, urinary bladder cancer status post resection of tumor and on chemotherapy. The 1st dose being in August 2019, who was recently discharged from the hospital on 10/06/2019 who comes in with chief complaints of altered mental status and recurrent falls and increasing confusion. In the emergency room, he was found to have leukocytosis, lactic acidosis, acute kidney injury. So, the hospitalist team was consulted for further management. SUBJECTIVE: At the time of my evaluation, Mr. Morillo is slightly confused. He is alert. He is answering most questions, but he is also mumbling incomprehensibly. VITALS: Suggestive of temperature 98 degrees, pulse 83, respiratory 18, blood pressure 105/60, saturating 97% on room air. PHYSICAL EXAMINATION: MOUTH: Oral cavity is moist. LUNGS: He has bilateral rhonchi. No wheeze or crackles. HEART: S1, S2 normal. He has a crescendo-decrescendo murmur affecting second intercostal space. No rub or gallop. ABDOMEN: Soft, nontender. EXTREMITIES: He has significant swelling of bilateral lower extremities with bulla formation. He has a urine catheter. He is able to follow simple commands. He does have some pain affecting his left-sided hip joint. His left lower extremity is externally rotated. IMAGING: Chest x-ray on presentation had suspected right upper lobe pneumonia, lung fibrosis. Head CT was unremarkable. ASSESSMENT AND PLAN: 1. Sepsis due to right upper lobe pneumonia, as well as acute cystitis without hematuria associated with self catheterization. The history regarding his Giang catheter at rehab is not currently available. He received intravenous fluids. I will continue intravenous vancomycin, Zosyn, and follow up final blood culture and urine culture data. 2. Bilateral lower extremity edema with elevated proBNP with severe aortic stenosis. His echocardiogram in August 2019 did not have significant systolic dysfunction. I will follow up with ultrasound of the lower extremities to rule out deep vein thrombosis. His intermittent atrial fibrillation could be a contributing factor. 3. Atrial fibrillation with controlled ventricular response. I will start him on enoxaparin at a therapeutic dose and adjust the dose according to kidney function. 4. Bilateral lower extremity edema. I will start patient on Lasix and metolazone starting tomorrow. 5. History of chronic obstructive pulmonary disease with pulmonary fibrosis. Continue inhaled bronchodilators and Advair Diskus. 6. Disposition. Monitor patient inside the hospital. I will follow up with [facility] for his acute kidney injury, lactic acidosis in the setting of sepsis. cc: Jered Mai MD
[2019-10-13] MEDS: LOVENOX SUBQ SCH (21:00)
[2019-10-13] MEDS: ZOSYN 3.375 GM in NS 50 ML IV SCH (21:00)
[2019-10-13] MEDS: DUONEB (A & A) INH SCH (23:40)
[2019-10-14] MEDS: ADVAIR 100/50 DISKUS INH SCH ×3 (00:30→22:20)
[2019-10-14] MEDS: ZOSYN 3.375 GM in NS 50 ML IV SCH ×4 (02:35→21:06)
[2019-10-14] MEDS: DUONEB (A & A) INH SCH ×5 (03:45→22:20)
[2019-10-14 06:30] LABS: BASO# 0.06 X1000 (0.0-0.2); BASO% 0.5 % (0.0-0.8); HEMOGLOBIN 11.2 g/dL (14.0-18.0); IMM GRAN# 0.06 X1000 (0.0-0.04); IMM GRAN% 0.5 % (0.0-0.5); LYMPH# 0.68 X1000 (1.2-3.4); LYMPH% 5.5 % (20.5-51.1); MCH 31.3 PG (27-31); MCV 97.8 FL (81-99); MONO# 1.01 X1000 (0.11-0.59); MONO% 8.2 % (1.7-9.3); MPV 11.8 FL (7.4-10.4); NEUT# 10.45 X1000 (1.4-6.5); NEUT% 85.3 % (42.2-75.2); PLT 95 X1000 (130-400); RBC 3.58 XMIL (4.7-6.1); RDW 17.9 % (11.5-14.5); WBC 12.26 X1000 (4.8-10.8)
[2019-10-14 06:38] LABS: ALB/GLOB RATIO 0.6; ALBUMIN 1.9 g/dL (3.5-5.0); CREATININE 1.2 mg/dL (0.7-1.2); MAGNESIUM 1.6 mg/dL (1.5-2.7); POTASSIUM 4.2 mmol/L (3.5-5.1); TOTAL BILIRUBIN 0.99 mg/dL (0.20-1.00)
[2019-10-14 07:22] LABS: LYMPHS 4 % (21-51); MONO 2 % (1-9); SEGS 94 % (42-75)
[2019-10-14 07:52] LABS: CALCIUM 7.1 mg/dL (8.8-10.2)
[2019-10-14] MEDS ORDERED: LR 500 ML IV SCH (08:00)
[2019-10-14] MEDS ORDERED: LR 1,000 ML IV ONE (08:16)
--- NOTE | 2019-10-14 08:19 | PROGRESS NOTE ---
DATE: 10/14/2019 INTERVAL HISTORY: No acute events overnight. His lactic acidosis has resolved. He had 850 mL of urine output. SUBJECTIVE: Mr. Morillo is sleepy and does not appear in any acute distress. His friend was at bedside. VITAL SIGNS: Temperature 97.9 degrees, pulse 74, and respiratory 22. His blood pressure most of the times has been 120 with low diastolic blood pressure in the 40s. PHYSICAL EXAMINATION: Oral cavity is dry. Air entry bilaterally equal. No wheeze. He does have bilateral rhonchi and mild infrascapular crackles. S1, S2 normal. Crescendo decrescendo murmur affecting second intercostal space. No rub or gallop. Abdomen is soft and nontender. He has significant swelling of bilateral lower extremities with bulla formation. He has a urine catheter. He has externally rotated left lower extremity. Yesterday, the movement of left lower extremity was painful. LABORATORY: Labs suggestive of improving leukocytosis. Hemoglobin of 11.2 and WBC 12.2. He does have thrombocytopenia with a platelet of 95,000. He has mild improvement in his BUN and creatinine. However, it appears his baseline creatinine is slightly better than this. No positive microbiological data. IMAGING: No new imaging. ASSESSMENT AND PLAN: 1. Sepsis and acute encephalopathy due to right upper lobe pneumonia as well as acute cystitis without hematuria associated with intermittent self catheterization. He received 1 L of intravenous fluid in the emergency room. On presentation, he also had lactic acidosis which has resolved. Continue intravenous vancomycin and Zosyn. Follow up final blood culture and urine culture data. I will consider giving him gentle intravenous fluid resuscitation for 1 more L. 2. Bilateral lower extremity edema with elevated proBNP with severe aortic stenosis. His echocardiogram did not have systolic dysfunction in 2019. Follow up ultrasound lower extremities to rule out DVT. His intermittent atrial fibrillation could be also a contributing factor to his lower extremity edema. 3. Atrial fibrillation with controlled ventricular response. Continue enoxaparin at therapeutic dose. Adjust the dose according to his kidney function. Considering his low urine output, I will be mindful about increasing the dose at the moment. 4. Acute kidney injury likely in the setting of sepsis. Continue Giang catheter for close input and output monitoring. I will consider adjusting Lasix and metolazone dose based on his kidney numbers. 5. History of COPD, pulmonary fibrosis, severe aortic stenosis. Currently, appears stable. Continue inhaled bronchodilators and Advair Diskus. 6. Left lower extremity external rotation. The history around the fall is unclear to me. He does have some tenderness on the left hip joint movement. I will get x-ray of left hip to rule out any fracture. DISPOSITION: Continue to monitor patient inside the hospital. Plan of care discussed with the patient's friend at bedside. cc: Jered Mai MD
[2019-10-14] MEDS ORDERED: LR 1,000 ML ONE (08:28)
[2019-10-14] MEDS: SINGULAIR PO SCH (08:30)
[2019-10-14] MEDS ORDERED: LASIX PO SCH (09:00)
[2019-10-14] MEDS ORDERED: PEPCID PO SCH (09:00)
--- NOTE | 2019-10-14 09:04 | PROGRESS NOTE ---
DATE: 10/14/2019 I was informed that his blood pressure was low in the 70s systolic, though he was asymptomatic. I ordered 1 L of intravenous fluids. SUBJECTIVE: Mr. Morillo currently is not in distress. He is more awake and alert, and I had explained to him about his multiple medical conditions. There is also irregular heart rhythm on the heart monitor, for which an EKG has been ordered, and I will follow up with it. cc: Jered Mai MD
--- NOTE | 2019-10-14 09:23 | EKG Report ---
Test Performed on : 10/14/2019 08:49:35 AM Test Reason : Follow up EKG for AFib Blood Pressure : / mmHG Vent. Rate : 058 BPM Atrial Rate : 058 BPM P-R Int : 200 ms QRS Dur : 120 ms QT Int : 538 ms P-R-T Axes : 074 -56 -69 degrees QTc Int : 528 ms Sinus bradycardia. with marked sinus arrhythmia. Left anterior fascicular block Inferior infarct (cited on or before 08-MAY-2018) Cannot rule out Anterior infarct (cited on or before 08-MAY-2018) T wave abnormality, consider lateral ischemia Abnormal ECG When compared with ECG of 13-OCT-2019 13:55, (Unconfirmed) Sinus rhythm. has replaced Atrial fibrillation. Confirmed by Jair MARTELL, Pratik Harrington ([id number]) on 10/15/2019 7:30:20 AM
--- NOTE | 2019-10-14 09:57 | Diag Imaging Result Doc PS360 ---
CHEST-2 VIEWS - 10/14/2019 INDICATION: Pneumonia COMPARISON: 10/13/2019 FINDINGS: Stable right chest port in good position. Stable heterogeneous multifocal interstitial infiltrates bilaterally. Worsening the upper lobes. No pneumothorax or pleural effusion. Heart size remains grossly normal. IMPRESSION: No significant change from prior. Electronically signed by Ilan Leon 10/14/2019 9:55 AM
--- NOTE | 2019-10-14 09:58 | Diag Imaging Result Doc PS360 ---
HIP W/PELVIS BILAT 2 VIEWS - 10/14/2019 INDICATION: R/o Fracture TECHNIQUE: Three views COMPARISON: None FINDINGS: There is severe degenerative flattening of the femoral head on the right along with severe osteoarthritis of the right hip. The left femoral head contour remains round. There is only mild degenerative spurring of the left hip. No acute fractures. There is advanced degeneration at the lower lumbar spine. There is advanced degenerative spurring of the iliac wings. There is degeneration of the sacroiliac joints. IMPRESSION: Advanced degeneration. No acute fracture. Electronically signed by Ilan Leon 10/14/2019 9:56 AM
--- NOTE | 2019-10-14 09:59 | Diag Imaging Result Doc PS360 ---
FEMUR MIN 2 VIEWS RIGHT - 10/14/2019 INDICATION: R/o Fracture TECHNIQUE: Two views COMPARISON: None FINDINGS: There is moderate osteoarthritis of the right knee. There is severe peripheral arterial disease. No acute fracture. IMPRESSION: No acute fracture. Electronically signed by Ilan Leon 10/14/2019 9:57 AM
[2019-10-14] MEDS ORDERED: ZAROXOLYN PO PRN (10:00)
--- NOTE | 2019-10-14 10:00 | Diag Imaging Result Doc PS360 ---
FEMUR MIN 2 VIEWS LEFT - 10/14/2019 INDICATION: R/o Fracture TECHNIQUE: Two views COMPARISON: None FINDINGS: There is advanced osteoarthritis of the left knee. There is advanced peripheral arterial disease with vascular calcification. There is also a fairly large round soft tissue calcification at the anterior lateral distal thigh. This measures 31 x 25 mm. This is indeterminate. No acute fracture. IMPRESSION: Chronic changes. No acute fracture. Electronically signed by Ilan Leon 10/14/2019 9:58 AM
[2019-10-14] MEDS: MIRALAX PO SCH (11:25)
[2019-10-14] MEDS ORDERED: SANTYL OINT TOP SCH (11:45)
[2019-10-14] MEDS: LOVENOX SUBQ SCH (21:07)
[2019-10-14] MEDS: TYLENOL PO PRN (21:12)
[2019-10-15] MEDS: ZOSYN 3.375 GM in NS 50 ML IV SCH ×4 (03:00→21:53)
[2019-10-15] MEDS: TYLENOL PO PRN ×2 (03:03→21:53)
[2019-10-15] MEDS: DUONEB (A & A) INH SCH ×4 (03:50→21:14)
[2019-10-15 06:51] LABS: AGAP 10; ALB/GLOB RATIO 0.4; ALBUMIN 1.8 g/dL (3.5-5.0); ALKALINE PHOSPHATASE 94 U/L (32-122); BUN 28 mg/dL (8-22); CALCIUM 7.3 mg/dL (8.8-10.2); CHLORIDE 103 mmol/L (98-107); COSMO 284; CREATININE 0.9 mg/dL (0.7-1.2); ESTIMATED GFR > 60; GLUCOSE 146 mg/dL (70-104); GOT 18 U/L (10-34); GPT 16 U/L (10-44); MAGNESIUM 1.6 mg/dL (1.5-2.7); POTASSIUM 3.6 mmol/L (3.5-5.1); SODIUM 138 mmol/L (136-145); TCO2 25 mmol/L (25-35); TOTAL BILIRUBIN 1.01 mg/dL (0.20-1.00); TOTAL PROTEIN 5.9 g/dL (6.3-8.3)
[2019-10-15 07:11] LABS: EOS# 0.01 X1000 (0.0-0.7); EOS% 0.1 % (0.0-10.0); HEMATOCRIT 34.5 % (42.0-52.0); HEMOGLOBIN 11.4 g/dL (14.0-18.0); LYMPH# 0.48 X1000 (1.2-3.4); LYMPH% 4.7 % (20.5-51.1); MCH 31.8 PG (27-31); MCV 96.4 FL (81-99); MONO# 1.41 X1000 (0.11-0.59); MONO% 13.7 % (1.7-9.3); MPV 12.1 FL (7.4-10.4); NEUT# 8.42 X1000 (1.4-6.5); NEUT% 81.5 % (42.2-75.2); PLT 98 X1000 (130-400); RBC 3.58 XMIL (4.7-6.1); WBC 10.32 X1000 (4.8-10.8)
--- NOTE | 2019-10-15 07:25 | Diag Imaging Result Doc PS360 ---
EXAM: CHEST-PORTABLE 10/15/2019 HISTORY: worsening crackles bilaterally,tachypnea TECHNIQUE: AP portable at 0549 COMMENT: There are coarse interstitial opacities bilaterally similar in appearance to 10/14/2019 and 10/13/2019. The basilar opacities are definitely worse than on 09/29/2019. IMPRESSION: Pulmonary edema versus pneumonia. Electronically signed by Neil Miranda 10/15/2019 7:23 AM
[2019-10-15 07:45] LABS: LYMPHS 1 % (21-51); MONO 7 % (1-9); SEGS 92 % (42-75)
[2019-10-15] MEDS ORDERED: PRILOSEC PO ONE (07:45)
[2019-10-15] MEDS ORDERED: LASIX PO ONE (07:46)
[2019-10-15] MEDS ORDERED: VANCOMYCIN 1,850 MG in NS 500 ML IV SCH (09:00)
--- NOTE | 2019-10-15 09:08 | PROGRESS NOTE ---
DATE: 10/15/2019 INTERVAL HISTORY: No acute events overnight. SUBJECTIVE: Mr. Morillo denies any complaints. He denies any chest pain. He is occasionally coughing. He states that at rest he is not feeling short of breath. He was frustrated being in the hospital, and I explained to him about his multiple medical conditions, the fact that he is developing recurrent pneumonia and urine infection. I told him that we should take care of his medical conditions and make him stable before discharging him. He understood it. VITALS: Temperature 97.4 degrees, pulse 76, respiratory 17, blood pressure 114/58, saturating 98% on room air. PHYSICAL EXAMINATION: General: He is not in acute distress. HEENT: Oral cavity is moist. He has some nasal congestion. Respiratory: He had upper respiratory gurgling sound, but he has a good cough. He does have bilateral end-expiratory wheezes. No rhonchi. He has inspiratory crackles diffusely, more pronounced in infrascapular region. Some of them also related to transmitted upper respiratory sounds. Cardiovascular: S1, S2 normal. Appears irregularly irregular. No murmur, rub, or gallop. Abdomen: Soft, nontender. He has bilateral lower extremity edema, which appears to have improved since presentation. There is bulla. He has a right-sided chest port. Neurologic: He is alert, oriented x3. He is answering questions appropriately. : He has urine catheter. Input and output suggests -1.1 liters so far. LABS: Suggestive of hemoglobin of 11.2, platelet of 98. His electrolytes suggest a potassium of 3.6, BUN of 28, creatinine of 0.9. MICROBIOLOGY: Urine culture growing gram-negative cherelle. One of the two blood cultures growing gram-positive cocci. X-RAYS: Chest x-ray today morning suggests pulmonary edema versus pneumonia. ASSESSMENT AND PLAN: 1. Sepsis and acute encephalopathy due to right upper lobe pneumonia, and acute cystitis without hematuria associated with intermittent self- catheterization. Continue intravenous vancomycin and intravenous Zosyn. Follow up final urine culture and blood culture data. He is breathing well, currently on minimal amount of oxygen. He has had 3 UTIs due to pseudomonas in last 2 months. 2. Bilateral lower extremity edema with elevated proBNP and severe aortic stenosis with normal systolic function in 2019. Follow up ultrasound lower extremities to rule out deep vein thrombosis. He does have irregular heart rhythm, sometimes suggestive of atrial fibrillation and sometimes normal sinus rhythm with premature atrial contraction. 3. Atrial fibrillation with controlled ventricular response versus normal sinus rhythm with premature atrial contraction. His heart rate is well controlled. I have been keeping him on therapeutic dose of enoxaparin, and he does have some thrombocytopenia. I may consider changing it to just prophylactic dose considering the evidence of atrial fibrillation is not definite. 4. Acute kidney injury in the setting of sepsis, now improving. Continue Giang catheter for close input and output monitoring. 5. History of chronic obstructive pulmonary disease with mild acute exacerbation with wheezing. I will start him on intravenous steroids. Continue inhaled bronchodilators. He does have history of pulmonary fibrosis. I will keep him on Advair Diskus as well. 6. Others. His lower extremity has severe arthritis. I will continue physical therapy. I will continue to monitor him in PVC unit. Plan of care discussed with him. All of his questions have been answered. I will give him topical cream for arthritic pain as well. cc: Jered Mai MD MTDD
[2019-10-15] MEDS: SINGULAIR PO SCH (09:09)
[2019-10-15] MEDS: KLOR-CON PO SCH ×2 (09:10→14:30)
[2019-10-15] MEDS: MIRALAX PO SCH (09:10)
[2019-10-15] MEDS: MAGNESIUM SULFATE 2 GM/S.W.I. 2 GM/50 ML IVPB IV SCH ×2 (09:10→14:30)
[2019-10-15] MEDS: SOLU-MEDROL IV SCH (09:11)
[2019-10-15] MEDS: ADVAIR 100/50 DISKUS INH SCH ×2 (09:14→19:14)
--- NOTE | 2019-10-15 13:59 | Extremity Venous Study ---
PROCEDURE NAME: Venous U/S Bilateral Legs - 10/13/2019 BILATERAL LOWER EXTREMITY VENOUS DUPLEX AND COLOR FLOW IMAGING STUDY: Using the GE Vivid E9 ultrasound System with a 9L-D transducer. REFERRING PHYSICIAN: Dr. Mai. PATIENT PROFILE: An 84-year-old male. 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 INDICATIONS: Bilateral lower extremity pain, edema and blisters suggestive of deep venous thrombosis. FINDINGS: The right common femoral vein and its branches, deep and superficial femoral veins were satisfactorily imaged. They had flow through them and were compressible. Right popliteal vein and the deep veins below the right knee were all compressible and had flow through them. The superficial veins of the right lower extremity were compressible throughout their length. The left common femoral vein and its branches, the deep and superficial femoral veins were also satisfactorily imaged. They had flow through them and were compressible. Left popliteal vein and the deep veins below the left knee were all compressible and had flow through them. The superficial veins of the left lower extremity were compressible throughout their length. INTERPRETATION: No evidence of acute deep or superficial venous thrombosis of the bilateral lower extremities. cc: MD Jered Almonte MD
[2019-10-15] MEDS: LOVENOX SUBQ SCH (21:53)
[2019-10-15] MEDS: ANALGESIC BALM TOP PRN (21:54)
[2019-10-16] MEDS: ZOSYN 3.375 GM in NS 50 ML IV SCH ×2 (03:18→09:00)
[2019-10-16] MEDS: DUONEB (A & A) INH SCH ×4 (03:30→22:09)
[2019-10-16] MEDS: PRILOSEC PO SCH (06:46)
[2019-10-16 07:12] LABS: BASO# 0.07 X1000 (0.0-0.2); BASO% 0.6 % (0.0-0.8); HEMATOCRIT 34.2 % (42.0-52.0); HEMOGLOBIN 11.2 g/dL (14.0-18.0); IMM GRAN# 0.06 X1000 (0.0-0.04); IMM GRAN% 0.5 % (0.0-0.5); LYMPH# 0.42 X1000 (1.2-3.4); LYMPH% 3.5 % (20.5-51.1); MCH 31.3 PG (27-31); MCHC 32.7 g/dL (33-37); MCV 95.5 FL (81-99); MONO% 9.9 % (1.7-9.3); NEUT% 85.5 % (42.2-75.2); PLT 82 X1000 (130-400); RBC 3.58 XMIL (4.7-6.1); RDW 17.5 % (11.5-14.5); WBC 12.15 X1000 (4.8-10.8)
[2019-10-16 07:27] LABS: AGAP 11; ALB/GLOB RATIO 0.4; ALBUMIN 1.8 g/dL (3.5-5.0); ALKALINE PHOSPHATASE 144 U/L (32-122); BUN 20 mg/dL (8-22); CALCIUM 7.5 mg/dL (8.8-10.2); CHLORIDE 100 mmol/L (98-107); COSMO 282; CREATININE 0.9 mg/dL (0.7-1.2); ESTIMATED GFR > 60; GLUCOSE 204 mg/dL (70-104); GOT 14 U/L (10-34); GPT 14 U/L (10-44); POTASSIUM 3.5 mmol/L (3.5-5.1); SODIUM 137 mmol/L (136-145); TCO2 26 mmol/L (25-35); TOTAL BILIRUBIN 0.77 mg/dL (0.20-1.00)
[2019-10-16] MEDS: ADVAIR 100/50 DISKUS INH SCH ×2 (08:39→22:08)
[2019-10-16] MEDS: MIRALAX PO SCH (08:59)
[2019-10-16] MEDS ORDERED: VANCOMYCIN 1,850 MG in NS 500 ML IV SCH (09:00)
[2019-10-16] MEDS: SINGULAIR PO SCH (09:00)
[2019-10-16] MEDS: SOLU-MEDROL IV SCH (09:01)
[2019-10-16] MEDS: DULCOLAX PR SCH ×3 (09:01→20:27)
--- NOTE | 2019-10-16 10:34 | PROGRESS NOTE ---
DATE: 10/16/2019 INTERVAL HISTORY: No acute events overnight. SUBJECTIVE: Mr. Morillo denies any new complaints. He states he is feeling better. I had a discussion with him about his urine infection, blood infection and I also told him that I am going to consult Infectious Disease. He did have a -1 L urine output. He has a right-sided chest port. VITALS: Temperature of 97.7 degrees, pulse 67, respiratory 25, blood pressure 120/61. He is saturating 98% on room air. PHYSICAL EXAMINATION: General: Not in acute distress. HEENT: Oral cavity is moist. Lungs: Air entry bilaterally equal. He has mild end-expiratory wheezes. No rhonchi. He does have crackles bilateral infrascapular region. Cardiovascular: S1, S2 normal. Not tachycardic. He had a systolic crescendo decrescendo murmur affecting right second intercostal space. He does have premature atrial contraction on bedside monitor. Abdomen: Soft, nontender. Active bowel sounds. Extremities: He has bilateral lower extremity edema which is improving and it is confined only to his ankles now. Skin: He has a right-sided chest port. Neuro: He is alert and oriented x3. LABS: Suggestive of mild leukocytosis, WBC of 12,000, hemoglobin 11.2, platelet 82,000, which has been slowly decreasing since presentation. His potassium is 3.5, BUN 20, creatinine 0.9. He does have significant hypoalbuminemia and I will order some Ensure protein supplements for him. MICROBIOLOGY: Urine culture is growing Staph Pseudomonas aeruginosa. Blood culture is growing Staphylococcus aureus which is methicillin resistant. ASSESSMENT AND PLAN: 1. Sepsis and acute encephalopathy due to right upper lobe pneumonia, acute cystitis without hematuria associated with intermittent self catheterization and Pseudomonas infection, methicillin-resistant Staphylococcus aureus (MRSA) bacteremia. Continue intravenous vancomycin, intravenous Zosyn. I will consult the infectious disease team for long-term antibiotics recommendations. He does have right-sided chest port. I will get limited echocardiogram to rule out valvular vegetations considering his significant aortic stenosis. 2. Bilateral lower extremity edema with elevated proBNP, likely in the setting of heart failure with preserved ejection fraction with mild exacerbation. His ultrasound did not have DVT. I will give him diuretics as needed. 3. Suspected atrial fibrillation with controlled ventricular response versus normal sinus rhythm with premature atrial contraction. Repeated EKG suggested. He probably has a sinus arrhythmia with premature atrial contraction. I will keep him monitored. 4. Acute kidney injury in the setting of sepsis, now improving. Continue Giang catheter for close input and output monitoring. 5. History of chronic obstructive pulmonary disease with mild acute exacerbation. Continue inhaled bronchodilators, intravenous steroids. He does have history of pulmonary fibrosis. I will keep him on Advair Diskus. 6. Others: He has severe arthritis and I will continue physical therapy. DISPOSITION: I will continue to monitor the patient inside the hospital. He also has history of urinary bladder cancer and received a dose of chemotherapy in August 2019. All of the patient's questions have been answered. cc: Jered Mai MD
[2019-10-16] MEDS: ROBITUSSIN-DM PO PRN (10:53)
[2019-10-16] MEDS: TAZIDIME 2 GM/NS 2 GM/100 ML IVPB IV SCH ×2 (13:00→19:45)
[2019-10-16] MEDS: CUBICIN 600 MG in NS 100 ML IV SCH (13:01)
[2019-10-16] MEDS: ZYVOX PO SCH ×2 (13:01→20:27)
[2019-10-16] MEDS: LASIX PO SCH (13:01)
--- NOTE | 2019-10-16 13:23 | ECHO REPORT ---
ORDER DATE: 10/16/2019 INTERPRETING PHYSICIAN: Khoi Mendoza MD. INDICATION: Limited 2-D echocardiogram for ruling out endocarditis. FINDINGS: 1. Mitral valve leaflets were normal. There is moderate to severe mitral annular calcification. 2. Tricuspid valve was normal. 3. Pacing leads were noted in the right chamber. 4. Aortic valve leaflets are heavily calcified. 5. Normal left ventricular cavity size. Estimated ejection fraction of 60 to 65 percent. 6. Technically suboptimal study. Very poor acoustic window. 7. There is no pericardial effusion. 8. There is no obvious mass noted. cc: MD Jered Trotter MD
--- NOTE | 2019-10-16 14:01 | INFECTIOUS DISEASE PROGRESS NO ---
DATE: 10/16/2019 PRESENT ILLNESS: The patient has a methicillin-resistant Staph aureus bacteremia. This bacteremia could have originated from the patient's Port-A-Cath and hematogenously infect the patient's lungs so that he has methicillin-resistant Staph aureus pneumonia. Alternatively, the patient could have had first a methicillin-resistant Staph aureus pneumonia, and then from the pneumonia the patient became bacteremic. The patient also has a Pseudomonas urinary tract infection. MEDICATIONS: The patient is getting vancomycin and Zosyn. PHYSICAL EXAMINATION: Vital Signs: Temperature is 97.7 degrees, pulse 67, respirations 25, and blood pressure 120/61. General: This is an ill-appearing elderly male. He seems to be somewhat dyspneic even at rest. Head/eyes/ears/nose/throat: He has decreased hearing. His vision is good. There is no drainage from his nose or ears. He does not have any white patches on his tongue. Neck: No meningismus. Lungs: Bilateral rhonchi. Cardiovascular: Heart rate is irregular. Thorax: Patient has a Port-A-Cath in the right upper chest. The site is not erythematous or purulent. Abdomen: Soft and nontender. Neurologic: The patient is awake. He can move his extremities, but he is weak. He does not have a tremor. LABORATORY AND X-RAY: The patient's blood cultures grew methicillin-resistant Staphylococcus aureus, and his urine culture grew Pseudomonas. Chest x-ray shows bilateral opacities. [place] [address], hemoglobin 11.2, platelet count 82,000, and creatinine is 0.9. GFR is greater than 60. ASSESSMENT AND PLAN: My plan is to assume that the patient had a methicillin- resistant Staph aureus pneumonia, which became hematogenous, which rather than thinking the patient had an infected Port-A-Cath which hematogenously infected the lung. If the latter happened, then the patient would have to have his Port-A-Cath taken out. If the former occurred, then I think we can treat with antibiotics. If the bacteremia should come back again, then we would be forced to take out the Port-A-Cath. For his methicillin-resistant Staph aureus infection, I am going to stop vancomycin because the patient has decreased hearing and vancomycin can contribute to that. I am going to go ahead and give the patient daptomycin for his bacteremia, but unfortunately that antibiotic does not get into the lung tissue well and so I will have to give him the Zyvox in addition to the daptomycin. Some of the side effects of the antibiotics including hematotoxicity, muscle toxicity, and diarrhea have been explained to the patient and his son; they both agree to treat. I agree with Dr. Mai getting an echocardiogram because the patient does have aortic stenosis, and endocarditis could have been caused by the patient's bacteremia. COMORBIDITIES: Patient has decreased hearing. He has bladder cancer, COPD and aortic valve stenosis. cc: Negro Luna MD [facility]
[2019-10-16] MEDS: LOVENOX SUBQ SCH (19:45)
[2019-10-17] MEDS: DUONEB (A & A) INH SCH ×4 (03:40→22:21)
[2019-10-17] MEDS: TAZIDIME 2 GM/NS 2 GM/100 ML IVPB IV SCH ×3 (04:11→20:11)
[2019-10-17] MEDS: PRILOSEC PO SCH ×2 (05:49→09:38)
[2019-10-17 05:52] LABS: BASO# 0.02 X1000 (0.0-0.2); BASO% 0.1 % (0.0-0.8); EOS# 0.05 X1000 (0.0-0.7); EOS% 0.3 % (0.0-10.0); HEMATOCRIT 35.7 % (42.0-52.0); HEMOGLOBIN 11.5 g/dL (14.0-18.0); IMM GRAN# 0.13 X1000 (0.0-0.04); IMM GRAN% 0.9 % (0.0-0.5); LYMPH# 0.61 X1000 (1.2-3.4); LYMPH% 4.1 % (20.5-51.1); MCH 31.1 PG (27-31); MCHC 32.2 g/dL (33-37); MCV 96.5 FL (81-99); MONO# 1.58 X1000 (0.11-0.59); MONO% 10.5 % (1.7-9.3); NEUT# 12.66 X1000 (1.4-6.5); NEUT% 84.1 % (42.2-75.2); PLT 100 X1000 (130-400); RDW 17.6 % (11.5-14.5); WBC 15.05 X1000 (4.8-10.8)
[2019-10-17] MEDS: TYLENOL PO PRN (06:08)
[2019-10-17 06:18] LABS: AGAP 9; ALB/GLOB RATIO 0.5; ALBUMIN 1.9 g/dL (3.5-5.0); ALKALINE PHOSPHATASE 90 U/L (32-122); BUN 18 mg/dL (8-22); CALCIUM 7.9 mg/dL (8.8-10.2); CHLORIDE 95 mmol/L (98-107); COSMO 275; CREATININE 0.9 mg/dL (0.7-1.2); ESTIMATED GFR > 60; GLUCOSE 226 mg/dL (70-104); GOT 12 U/L (10-34); GPT 13 U/L (10-44); MAGNESIUM 1.6 mg/dL (1.5-2.7); POTASSIUM 3.9 mmol/L (3.5-5.1); SODIUM 133 mmol/L (136-145); TCO2 29 mmol/L (25-35); TOTAL BILIRUBIN 0.77 mg/dL (0.20-1.00); TOTAL PROTEIN 5.9 g/dL (6.3-8.3)
--- NOTE | 2019-10-17 09:16 | PROGRESS NOTE ---
DATE: 10/17/2019 INTERVAL HISTORY: No acute events overnight. Infectious Disease team had changed antibiotics to daptomycin and ceftazidime. SUBJECTIVE: Mr. Morillo is denying new complaints. He states he was able to work out with physical therapy. We discussed about lung exam findings. We also discussed about infection in the blood, which could potentially seed his port, as well as heart valves. We discussed about getting an echocardiogram. Mr. Morillo is feeling better. He denies any chest pain or shortness of breath. He denies any nausea, vomiting, abdominal pain. He has been eating well. VITALS: Temperature of 97.7 degrees, pulse 63, respiratory 18, blood pressure 107/75, saturating 97% on room air. PHYSICAL EXAMINATION: General: On physical examination, he is not in acute distress. Mouth: Oral cavity is moist. Lungs: Air entry bilaterally equal. He has bilateral rhonchi and mild end- expiratory wheezes. Mild crackles at the infrascapular region. Cardiovascular: S1, S2 normal. Not tachycardic. Crescendo-decrescendo murmur affecting right second intercostal space. Irregularly irregular due to premature atrial contractions. Abdomen: Soft, nontender. Active bowel sounds. Extremities: He has significantly reduced bilateral lower extremity edema, which is now confined to ankles. Skin: There are bulla which have been rupturing. He has a right- sided chest port. Neurologic: He is alert and oriented x3. He is able to flex and extend at shoulder, elbow, wrist, hip, knee and ankle joints. No facial droop or ptosis. LABS AND X-RAYS: Suggestive of likely steroid-induced leukocytosis with a WBC of 15,000, hemoglobin 11.5, platelet count 100,000. Sodium of 133, chloride of 95. His BUN is 18, creatinine 0.9. Repeat blood cultures have been in lab. No new imaging. Previously, 1 of the 2 blood cultures were growing MRSA and urine culture was growing Pseudomonas. ASSESSMENT AND PLAN: 1. Right upper lobe pneumonia, Pseudomonas urinary tract infection leading to acute cystitis without hematuria associated with intermittent self catheterization, methicillin-resistant Staphylococcus aureus Sepsis. Continue intravenous daptomycin and intravenous ceftazidime as per Infectious Disease team's recommendation. Follow up repeat blood cultures. We decided to keep his port in and follow up blood cultures and decide about his fate in the future. Follow-up limited echocardiogram considering his history of aortic stenosis. 2. Bilateral lower extremity edema. Ultrasound was negative for deep vein thrombosis, likely in the setting of heart failure with preserved ejection fraction and mild exacerbation. Continue oral Lasix. 3. His sepsis and acute encephalopathy, acute kidney injury in the setting of sepsis have resolved/ I will keep Giang catheter for close input and output monitoring. His electrocardiogram, though previously showing atrial fibrillation, on my evaluation it looks more like sinus arrhythmia with premature atrial contraction. 4. Mild acute chronic obstructive pulmonary disease exacerbation. Continue inhaled bronchodilators, current dose of intravenous steroids. He also has baseline pulmonary fibrosis. DISPOSITION: Continue to monitor patient inside the hospital as I await negative blood cultures. Plan of care discussed with the patient. His questions have been answered. cc: Jered Mai MD [facility]
[2019-10-17] MEDS: ADVAIR 100/50 DISKUS INH SCH ×2 (09:26→22:21)
[2019-10-17] MEDS: SOLU-MEDROL IV SCH (09:39)
[2019-10-17] MEDS: LASIX PO SCH (09:39)
[2019-10-17] MEDS: DULCOLAX PR SCH ×2 (09:39→20:11)
[2019-10-17] MEDS: ZYVOX PO SCH ×2 (09:39→20:11)
[2019-10-17] MEDS: SINGULAIR PO SCH (09:39)
[2019-10-17] MEDS: MIRALAX PO SCH (09:39)
[2019-10-17] MEDS: CUBICIN 600 MG in NS 100 ML IV SCH (11:18)
--- NOTE | 2019-10-17 14:47 | CONSULTATION ---
DATE OF CONSULTATION: 10/17/2019 CHIEF COMPLAINT: Infection. 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 This is his 4th admission in the last 2 months for sepsis due to pneumonia and cystitis. The patient has a history of a neurogenic bladder and is supposed to be on intermittent self-catheterization which he did well for several months. He has had problems with sepsis syndrome since July 2019. He has been living in a correction and has had a constant indwelling Giang catheter. The patient and son state he started chemotherapy in August 2019 and had the 1st cycle. He started radiation therapy. He then had the recurrent bouts of sepsis due to pneumonia and cystitis. The patient also has a history of atrial fibrillation and had significant bilateral lower extremity edema. He currently states he feels much better. He states yesterday he was up with the help of physical therapy walking a small amount. The patient states his urine is clear. PAST MEDICAL HISTORY: Atrial fibrillation, COPD, asthma, gastroesophageal reflux disease, diverticulosis. CURRENT MEDICATIONS: Are documented on the chart. PAST SURGICAL HISTORY: TURBT x2, direct visual internal urethrotomy and removal of bladder stones, carpal tunnel surgery, chemo port placement, cataract surgery. SOCIAL HISTORY: No tobacco use for 30 years. He states he smoked cigarettes for many years and was smoking 4 packs a day when he quit. No alcohol use. Again for the last 6 weeks he has been a resident in a correction. REVIEW OF SYSTEMS: He denies any problems with strokes or seizures. He states he does not remember coming to the hospital. PHYSICAL EXAMINATION: General: A mildly obese, age apparent, normally developed white male, oriented in all ways and cooperative. HEENT: Normal for age. Lungs: Wheezing and rhonchi throughout. No rales noted. Cardiovascular: Irregular rate and rhythm. Abdomen: Protuberant, soft, nontender. No hepatosplenomegaly or masses. Normal bowel sounds. : Giang catheter in place. Foreskin retracts. Meatus appears normal. Both testes are down and palpably normal, somewhat small. Rectal: Exam in June 2019 revealed a prostate of about 70 g, smooth, and symmetric. Extremities: With +2 pitting edema. He states his legs are much better than when he was admitted. Neurologic: No focal deficits. He is oriented to person, place and time. LABORATORY EVALUATION: Has a white count of 15.05, a hemoglobin 11.5, hematocrit 35.7 and platelets are 100,000. Serum electrolytes have a serum sodium 133, potassium 3.9, chloride 95, bicarb 29, BUN 18, creatinine 0.9. His urine culture grew Pseudomonas aeruginosa that was sensitive to all antibiotics except Levaquin. He is currently on daptomycin and ceftazidime. He is also on Zyvox. IMPRESSION: 1. 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 Status post transurethral resection of bladder tumor and 1 round of chemotherapy and has initiated radiation therapy. This had to be held because of his medical problems and will finish when his pneumonia has resolved. The high-grade cancer in a diverticulum by definition has invaded through the bladder wall. 2. Neurogenic bladder, previously on clean intermittent catheterization and will need to start that when his Giang catheter can be removed. If he goes to the correction, they will not do clean intermittent catheterization and he will have to do that himself. 3. Atrial fibrillation with congestive heart failure. 4. Pseudomonas urinary tract infection/ colonization sensitive to all antibiotics except Levaquin. PLAN: Nothing to add from a urological point of view at this time. Will follow while he is in the hospital. Thank you for this consultation. cc: Manny Onofre MD
[2019-10-17] MEDS: ANALGESIC BALM TOP PRN (20:10)
[2019-10-17] MEDS: LOVENOX SUBQ SCH (20:11)
[2019-10-17] MEDS: ROBITUSSIN-DM PO PRN (20:19)
[2019-10-18] MEDS: DUONEB (A & A) INH SCH ×4 (03:17→22:42)
[2019-10-18] MEDS: ROBITUSSIN-DM PO PRN ×2 (03:19→10:39)
[2019-10-18] MEDS: TAZIDIME 2 GM/NS 2 GM/100 ML IVPB IV SCH ×3 (04:47→20:37)
[2019-10-18] MEDS: TYLENOL PO PRN ×3 (04:47→20:37)
[2019-10-18] MEDS: PRILOSEC PO SCH (06:18)
[2019-10-18 09:02] LABS: BASO# 0.01 X1000 (0.0-0.2); BASO% 0.1 % (0.0-0.8); HEMOGLOBIN 11.6 g/dL (14.0-18.0); IMM GRAN# 0.18 X1000 (0.0-0.04); IMM GRAN% 1.1 % (0.0-0.5); LYMPH# 0.67 X1000 (1.2-3.4); MCH 30.9 PG (27-31); MCHC 32.2 g/dL (33-37); MONO# 1.69 X1000 (0.11-0.59); MONO% 10.1 % (1.7-9.3); MPV 11.7 FL (7.4-10.4); NEUT# 14.13 X1000 (1.4-6.5); NEUT% 84.7 % (42.2-75.2); PLT 93 X1000 (130-400); RBC 3.75 XMIL (4.7-6.1); RDW 17.4 % (11.5-14.5); WBC 16.68 X1000 (4.8-10.8)
[2019-10-18 09:06] LABS: AGAP 11; ALB/GLOB RATIO 0.5; ALBUMIN 2.1 g/dL (3.5-5.0); ALKALINE PHOSPHATASE 143 U/L (32-122); BUN 18 mg/dL (8-22); CALCIUM 8.2 mg/dL (8.8-10.2); CHLORIDE 97 mmol/L (98-107); COSMO 276; CREATININE 0.8 mg/dL (0.7-1.2); ESTIMATED GFR > 60; GLUCOSE 139 mg/dL (70-104); GOT 18 U/L (10-34); GPT 14 U/L (10-44); MAGNESIUM 1.5 mg/dL (1.5-2.7); POTASSIUM 3.8 mmol/L (3.5-5.1); SODIUM 136 mmol/L (136-145); TCO2 28 mmol/L (25-35); TOTAL BILIRUBIN 0.91 mg/dL (0.20-1.00); TOTAL PROTEIN 6.4 g/dL (6.3-8.3)
[2019-10-18] MEDS: LASIX PO SCH (10:33)
[2019-10-18] MEDS: SINGULAIR PO SCH (10:33)
[2019-10-18] MEDS: ZYVOX PO SCH (10:33)
[2019-10-18] MEDS: SOLU-MEDROL IV SCH (10:33)
[2019-10-18] MEDS: MIRALAX PO SCH (10:34)
[2019-10-18] MEDS: DULCOLAX PR SCH ×2 (10:34→23:46)
[2019-10-18] MEDS: ADVAIR 100/50 DISKUS INH SCH ×2 (12:25→22:42)
[2019-10-18] MEDS ORDERED: CUBICIN 600 MG in NS 100 ML IV SCH (14:09)
[2019-10-18] MEDS: CUBICIN 600 MG in NS 100 ML IV SCH (15:16)
--- NOTE | 2019-10-18 15:24 | PROGRESS NOTE ---
DATE: 10/18/2019 INTERVAL HISTORY: No acute events overnight. SUBJECTIVE: Mr. Morillo is feeling better. Denies any chest pain. He has occasional shortness of breath. He continues to have occasional cough, not out of ordinary. He denies any nausea, vomiting. He is eating better. He states his lower extremity swelling is decreasing. He was able to work out with physical therapy. His son is at bedside. VITAL SIGNS: Temperature 98 degrees, pulse 63, respiratory rate 20, blood pressure 140/65, saturating 94% on room air. PHYSICAL EXAMINATION: General: Mr. Morillo is not in any acute distress. HEENT: Oral cavity is moist. Lungs: Air entry bilaterally equal. Mild end-expiratory wheezes. He also has inspiratory crackles in infrascapular region, coarse in nature, suggestive of pulmonary fibrosis. Cardiovascular: S1, S2 normal. Crescendo decrescendo murmur affecting right 2nd intercostal space. Abdomen: Soft, nontender. Extremities: He has edema around his ankles. There are ruptured bullae on his lower extremity skin. Neurologic: He is alert and oriented x3. LABS: Suggestive of WBC of 16,000, hemoglobin 11.6, platelets 93,000. He has a BUN of 18, creatinine 0.8. MICROBIOLOGY: Repeat blood culture on October 16 did not have any growth. IMAGING: No new imaging. ASSESSMENT AND PLAN: 1. Right upper lobe pneumonia due to gram-negative cherelle, Pseudomonas urinary tract infection leading to acute cystitis without hematuria associated with intermittent self catheterization, methicillin-resistant Staphylococcus aureus sepsis likely from right-sided chest port. Continue intravenous daptomycin and ceftazidime as per ID's recommendation. Repeat blood cultures drawn on October 16 have been negative. The patient will likely need port removal and a total of at least 2 to 6 weeks of intravenous antibiotics. Appreciate ID's recommendation. His echocardiogram did not have endocarditis. 2. Bilateral lower extremity edema with ultrasound negative for deep vein thrombosis. Likely heart failure with preserved ejection fraction exacerbation. 3. His sepsis, acute encephalopathy, acute kidney injury have resolved. Continue Giang catheter for close input and output monitoring. His EKG is showing marked sinus arrhythmia with premature atrial contraction, though the read previously had suggested atrial fibrillation. 4. Mild acute chronic obstructive pulmonary disease exacerbation. Continue bronchodilators, current dose of intravenous steroids for his baseline pulmonary fibrosis. 5. High-grade urothelial carcinoma with squamous cell differentiation and large bladder diverticulum, status post transurethral resection of bladder tumor and 1 round of chemotherapy, as well as radiation in August 2019. I will involve Oncology team and possibly General Surgical team considering he may need port removal. DISPOSITION: Continue to monitor the patient on the medical floor. Plan of care discussed with him. His questions have been answered. cc: Jered Mai MD
--- NOTE | 2019-10-18 16:28 | INFECTIOUS DISEASE PROGRESS NO ---
DATE: 10/18/2019 PRESENT ILLNESS: The patient has a methicillin-resistant Staphylococcus aureus bacteremia. Initially, I thought this could be coming from patient's pneumonia, but the sputum is growing a gram-negative cherelle which the bacteriology lab thinks is going to be Pseudomonas. Therefore, the patient's pneumonia is going to be due to a gram-negative cherelle and not Staphylococcus aureus and, therefore, the lung is not the source of the methicillin-resistant Staphylococcus aureus bacteremia but rather the Port-A-Cath is. MEDICATIONS: The patient is on a combination of daptomycin, Zyvox and ceftazidime. PHYSICAL EXAMINATION: Vital Signs: Temperature is 98 degrees, pulse 75, respirations 18, blood pressure is 114/65. General: This is an ill-appearing, elderly male. He is dyspneic. Head/eyes/ears/nose/throat: He has decreased hearing, but his vision is good. There is no drainage from the nose or the ears. He does not have any white coating of his tongue. Neck: No pain with movement. Lungs: Bilateral rhonchi. Cardiovascular: Heart rate is irregular. Thorax: The patient has a Port-A-Cath in the right upper chest. The site is not swollen or erythematous. Abdomen: Soft and nontender. Neurologic: The patient is alert. He can move his extremities, but he is weak. He does not have a tremor. LAB AND X-RAY: The patient's sputum as mentioned above is growing a gram-negative cherelle. The Microbiology Lab thinks that it is going to returned goods repairer to be Pseudomonas. The CBC shows a white count of 16,680, hemoglobin 11.6, and platelet count 93,000. Creatinine is 0.8, GFR is greater than 60. The patient on the 16 of October had an echocardiogram, and there is no evidence of vegetations on the valve leaflets. ASSESSMENT AND PLAN: The patient has a methicillin-resistant Staphylococcus aureus bacteremia which I think originated from his Port-A-Cath, and also he appears to have a gram-negative cherelle most likely Pseudomonas causing his pneumonia. My plan is to continue daptomycin to treat the bacteremia, but discontinue Zyvox because the pneumonia looks like it is due to a gram-negative cherelle. Since it is very difficult to clear a bacteremia from a Port-A-Cath due to Staphylococcus aureus and I think it will require removing the Port-A-Cath, I agree with Dr. Mai that tomorrow he will discuss with the patient's oncologist and the surgeon who put in the Port-A-Cath about taking it out. I am going to also continue ceftazidime for the patient's gram-negative cherelle pneumonia, which looks like it will be due to Pseudomonas. COMORBIDITIES: The patient is elderly. He has decreased hearing. He also has bladder cancer, chronic obstructive pulmonary disease, and aortic stenosis. cc: Negro Luna MD
[2019-10-18] MEDS: LOVENOX SUBQ SCH (20:37)
[2019-10-18] MEDS ORDERED: MELATONIN PO SCH (23:30)
[2019-10-18] MEDS: MELATONIN PO PRN (23:51)
[2019-10-19] MEDS: DUONEB (A & A) INH SCH ×4 (03:48→22:42)
[2019-10-19] MEDS: TAZIDIME 2 GM/NS 2 GM/100 ML IVPB IV SCH ×2 (04:05→12:51)
[2019-10-19] MEDS: PRILOSEC PO SCH (06:00)
[2019-10-19] MEDS: ADVAIR 100/50 DISKUS INH SCH ×2 (09:27→22:42)
[2019-10-19 09:44] LABS: AGAP 9; ALB/GLOB RATIO 0.4; ALBUMIN 1.9 g/dL (3.5-5.0); ALKALINE PHOSPHATASE 99 U/L (32-122); BUN 18 mg/dL (8-22); CALCIUM 8.3 mg/dL (8.8-10.2); CHLORIDE 96 mmol/L (98-107); COSMO 273; CREATININE 0.7 mg/dL (0.7-1.2); ESTIMATED GFR > 60; GLUCOSE 108 mg/dL (70-104); GOT 18 U/L (10-34); GPT 14 U/L (10-44); MAGNESIUM 1.6 mg/dL (1.5-2.7); POTASSIUM 4.2 mmol/L (3.5-5.1); SODIUM 135 mmol/L (136-145); TCO2 30 mmol/L (25-35); TOTAL BILIRUBIN 0.96 mg/dL (0.20-1.00); TOTAL PROTEIN 6.4 g/dL (6.3-8.3)
[2019-10-19] MEDS: SOLU-MEDROL IV SCH (09:50)
[2019-10-19] MEDS: LASIX PO SCH (09:50)
[2019-10-19] MEDS: SINGULAIR PO SCH (09:50)
[2019-10-19] MEDS: MIRALAX PO SCH (09:50)
[2019-10-19] MEDS: DULCOLAX PR SCH ×2 (09:51→20:28)
[2019-10-19 10:55] LABS: BASO# 0.03 X1000 (0.0-0.2); BASO% 0.2 % (0.0-0.8); EOS# 0.04 X1000 (0.0-0.7); EOS% 0.3 % (0.0-10.0); HEMATOCRIT 36.9 % (42.0-52.0); IMM GRAN# 0.15 X1000 (0.0-0.04); IMM GRAN% 0.9 % (0.0-0.5); LYMPH# 0.67 X1000 (1.2-3.4); LYMPH% 4.2 % (20.5-51.1); MCH 31.4 PG (27-31); MCHC 32.5 g/dL (33-37); MCV 96.6 FL (81-99); MONO# 1.17 X1000 (0.11-0.59); MONO% 7.4 % (1.7-9.3); MPV 12.2 FL (7.4-10.4); NEUT# 13.79 X1000 (1.4-6.5); PLT 106 X1000 (130-400); RBC 3.82 XMIL (4.7-6.1); RDW 17.4 % (11.5-14.5); WBC 15.85 X1000 (4.8-10.8)
[2019-10-19 11:13] LABS: ANISOCYTOSIS 1+; LYMPHS 3 % (21-51); MONO 8 % (1-9); SEGS 89 % (42-75)
[2019-10-19 11:14] LABS: HYPOCHROM 2+
[2019-10-19] MEDS: TYLENOL PO PRN (14:13)
--- NOTE | 2019-10-19 14:16 | INFECTIOUS DISEASE PROGRESS NO ---
DATE: 10/19/2019 PRESENT ILLNESS: The patient has a methicillin-resistant Staphylococcus aureus bacteremia, which I think originated from his Port-A-Cath. The patient has a Pseudomonas urinary tract infection. The Pseudomonas is susceptible to all antibiotics tested except Levaquin. Finally, the patient's sputum is growing a multiply drug resistant Pseudomonas that is resistant to all antibiotics except amikacin and tobramycin. MEDICATIONS: The patient currently is on daptomycin and ceftazidime. PHYSICAL EXAMINATION: Vital Signs: Temperature is 97.6 degrees, pulse 72, respirations 14, blood pressure is 126/53. General: This is an ill appearing, elderly male. He looks better today. He does not appear dyspneic. Head/eyes/ears/nose/throat: He has decreased hearing, but his vision is good. Neck: No pain with moving. Lungs: Bilateral rhonchi. Cardiovascular: Heart rate is irregular. Thorax: The patient has a Port-A-Cath in the right upper chest. The site is not swollen or erythematous. Abdomen: Soft and nontender. Neurologic: The patient is alert. He can move his extremities. He does not have a tremor. LAB AND X-RAY: CBC shows a white count of 15,850, hemoglobin 12, platelet count 106,000. Creatinine is 0.7. GFR is greater than 60. Alkaline phosphatase is 143. As mentioned above, the patient's urine is growing Pseudomonas, susceptible to all agents except Levaquin. The patient's sputum is growing Pseudomonas, resistant to all agents except amikacin and tobramycin. Finally, the patient had methicillin-resistant Staphylococcus aureus from his blood cultures, but the repeat blood cultures drawn on 10/16/2019 are negative. My plan is the following: I have called Microbiology and asked them to send the multiply drug resistant Pseudomonas in the sputum for susceptibility testing to Avycaz, Colistin, and meropenem. In the meanwhile, I have discontinued ceftazidime and put the patient on meropenem. I plan to continue daptomycin for the patient's methicillin-resistant Staphylococcus aureus bacteremia. This is day #1 of treatment with daptomycin. The blood cultures were negative on 10/16/2019. The other issue is that I think the patient's Port-A-Cath needs to be removed and Dr. Mai was going to check with the oncologist and surgeon who put in the Port-A-Cath about removing it. COMORBIDITIES: The patient is elderly. He has decreased hearing. He has bladder cancer, chronic obstructive pulmonary disease, and aortic stenosis. cc: Negro Luna MD
[2019-10-19] MEDS: MERREM 2 GM in NS 100 ML IV SCH ×2 (16:10→22:08)
[2019-10-19] MEDS: CUBICIN 600 MG in NS 100 ML IV SCH (16:11)
--- NOTE | 2019-10-19 16:28 | HEMO/ONC CONSULTATION ---
DATE: 10/19/2019 REASON FOR CONSULTATION: He is a known patient of ours for the treatment of bladder cancer. HISTORY OF PRESENT ILLNESS: Mr. Jayesh Morillo is an 84-year-old gentleman with a history of bladder cancer and multiple other comorbidities. He was admitted earlier this month from 09/29 to 10/05 with acute cystitis secondary to Enterococcus UTI, sepsis, encephalopathy, severe aortic stenosis and mild COPD exacerbation. He was discharged to [facility]. Since being there, he has been having several falls. They called his son on the morning of the , stating that he was having increased confusion and continuing to fall. His son brought him to the ER where he was worked up. Head CT showed no injury. He was found to have some mild acute kidney injury and a urinary tract infection and newly found right upper lobe pneumonia. The patient has been admitted for approximately a week. He has continued to improve, and his confusion has resolved. PAST MEDICAL HISTORY: 1. COPD. 2. Seasonal allergies. 3. GERD. 4. Arthritis. 5. Bladder cancer with tumor removal and self catheterization. 6. Chronic frequent urinary tract infections. 7. Atrial fibrillation. 8. CHF with severe aortic stenosis. PAST SURGICAL HISTORY: 1. Bladder tumor removal. 2. Right port placement. 3. Bilateral cataract surgery. SOCIAL HISTORY: Four pack per day smoker for 30 years; he quit in 1974. Denied alcohol or illicit drug use. ALLERGIES: Codeine. HOME MEDICATIONS: Advair, Combivent Respimat, cranberry fruit extract, Pepcid, Flonase, potassium, metolazone, MiraLAX, Singulair, Lasix, prednisone and Tylenol. REVIEW OF SYSTEMS: The patient stated he was comfortable in the bed. He complains of pain to his bottom. He denies pain anywhere else. VITAL SIGNS: Temperature 97.6 degrees, pulse rate 65, respiratory rate 18, blood pressure 126/53, O2 saturation 95% on room air. He is in 0/10 pain. PHYSICAL EXAMINATION: General: This is a chronically ill-appearing elderly male in no acute distress. HEENT: Sclerae is anicteric. PERRLA. Oral mucosa is normal. Cardiovascular: Heart rate and rhythm is irregular. Respiratory: Bilateral rhonchi are noted. Normal respiratory effort. Abdomen: Soft, nontender. Neurologic: The patient is alert. He can move extremities at will. LABORATORY: WBCs 15.85, hemoglobin 12.0, hematocrit 36.0, platelet count 106,000. ASSESSMENT/PLAN: 1. 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 The patient was undergoing concurrent chemotherapy and radiation. However, it had to be stopped due to recurrent infections and most recently pneumonia. Dr. Onofre is also following the patient. 2. Staphylococcus aureus bacteremia. The patient should have had blood cultures from his Port-A- Cath if that is a concern. We will continue to monitor. 3. Sepsis secondary to urinary tract infection, right upper lobe pneumonia. The patient came in with a significant amount of confusion that has resolved by today. The patient was able to conversate and answer questions appropriately for me. Continue medical management and antibiotic management per Dr. Luna. 4. Deep venous thrombosis prophylaxis. Continue the patient on sequential compression devices. Dictated by SASHA Santiago for Moustapha Zhu MD As above. Admitted with sepsis. Per Dr. Luna patient has MRSA and needs port removal. Dr. Hudson consulted for same. Moustapha Zhu MD cc: Moustapha Zhu MD [facility]
--- NOTE | 2019-10-19 17:57 | PROGRESS NOTE ---
DATE: 10/19/2019 INTERVAL HISTORY: No acute events overnight. SUBJECTIVE: Mr. Morillo denies any complaints. He is occasionally short of breath, occasionally coughing, but is feeling significantly better. VITAL SIGNS: Temperature of 97.6 degrees, pulse 70, respiratory rate 14, blood pressure 126/53, saturating 94% room air. PHYSICAL EXAMINATION: General: Not in acute distress. His son is at bedside. Oral cavity is moist. Lungs: Air entry bilaterally equal. Mild end-expiratory wheezes. Coarse inspiratory crackles in infrascapular region suggestive or pulmonary fibrosis. Cardiovascular: S1, S2 normal. Crescendo-decrescendo murmur affecting right second intercostal space. Abdomen: Soft. Nontender. Extremities: He has edema around the ankles. There are ruptured bulla on his lower extremities. Neurologic: He is alert and oriented x3. LABS: Suggestive of leukocytosis of 15,000, hemoglobin 12, platelet count 106,000. His electrolytes are within acceptable range. ASSESSMENT AND PLAN: 1. Right upper lobe pneumonia due pseudomonas urinary tract infection leading to acute cystitis without hematuria associated with intermittent self catheterization, methicillin-resistant Staphylococcus aureus sepsis likely from right-sided chest port. Continue intravenous daptomycin and intravenous meropenem as per Infectious Disease recommendation. Infectious disease team is talking to microbiology about further sensitivity data on Pseudomonas in sputum as currently it is resistant to most antibiotics except aminoglycosides. The patient does have a bladder diverticulum and bladder cancer which is making him prone to recurrent Pseudomonas infection. According to Urology, he should resume intermittent self catheterization when he goes home. Echocardiogram did not have definitive endocarditis. General surgical team has been consulted for right-sided chest port removal, which is likely the source of methicillin-resistant Staphylococcus aureus. 2. Bilateral lower extremity edema with ultrasound negative for deep vein thrombosis, likely heart failure with preserved ejection fraction exacerbation, now improving. Continue oral Lasix. He has been negative almost every day. 3. Sepsis, acute encephalopathy and acute kidney injury on presentation have resolved. Continue Giang catheter. His EKG did have sinus arrhythmia with premature atrial contraction, though the initial read had atrial fibrillation. 4. Mild acute chronic obstructive pulmonary disease exacerbation. Continue inhaled bronchodilators, intravenous steroids. He also has baseline pulmonary fibrosis. 5. 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 Oncology team on board. 6. Disposition: I am awaiting chest port removal, further antibiotic recommendation for Infectious Disease team. Based on that, the patient could be discharged to rehab where he is coming from. Plan of care discussed with the patient and his son at bedside. Their questions have been answered. cc: Jered Mai MD
[2019-10-19] MEDS: ULTRAM PO PRN (20:33)
[2019-10-19] MEDS: MELATONIN PO PRN (20:33)
[2019-10-19] MEDS: LOVENOX SUBQ SCH (20:34)
--- NOTE | 2019-10-19 20:53 | CONSULTATION ---
DATE OF CONSULTATION: 10/19/2019 Jayesh Morillo is an 84-year-old white male with history of bladder cancer, who had a Port-A-Cath in place. He has Staph aureus bacteremia and we were asked by Dr. Luna, our Infectious Disease physician, to remove the port. He also has a Pseudomonas urinary tract infection. I discussed the procedure in detail with the patient's son and the patient at the bedside this evening, and we will plan removal of his port tomorrow. On exam, I do not see any purulence around the port. The port is accessed and they are using it for IVs at this time. It does not appear to be tender or red. cc: Blanca Hudson MD
[2019-10-20] MEDS: DUONEB (A & A) INH SCH ×4 (03:25→22:50)
[2019-10-20] MEDS: MERREM 2 GM in NS 100 ML IV SCH ×3 (06:49→21:46)
[2019-10-20] MEDS: PRILOSEC PO SCH (06:56)
[2019-10-20] MEDS: ADVAIR 100/50 DISKUS INH SCH ×2 (09:10→22:50)
[2019-10-20] MEDS ORDERED: FENTANYL ONE (10:03)
[2019-10-20] MEDS ORDERED: DIPRIVAN 1% ONE (10:03)
[2019-10-20] MEDS ORDERED: XYLOCAINE-MPF 2% ONE (10:06)
[2019-10-20] MEDS: SOLU-MEDROL IV SCH (10:15)
[2019-10-20] MEDS ORDERED: SENSORCAINE-MPF 0.5%/EPI 1:200,000 ONE (10:33)
--- NOTE | 2019-10-20 11:28 | INFECTIOUS DISEASE PROGRESS NO ---
DATE: 10/20/2019 PRESENT ILLNESS: Mr. Morillo is being treated for methicillin-resistant Staphylococcus aureus bacteremia, which we think came from his Port-A-Cath. He is scheduled to have his Port-A-Cath removed sometime today. Also, there is a Pseudomonas urinary tract infection as well as a Pseudomonas growing in his sputum, which is multidrug resistant. MEDICATIONS: He is receiving daptomycin 600 mg IV every 24 hours and meropenem 2 g IV every 8 hours. Of note, he also is receiving IV Solu-Medrol. PHYSICAL EXAMINATION: Vital signs: Temperature is 97.6, pulse rate 68, respiratory rate 15, blood pressure 123/57, O2 saturation is 96% on room air. General: This is a chronically ill-appearing elderly gentleman. He is lying in the bed currently mildly anxious, awaiting transport to surgery. HEENT: Atraumatic, normocephalic. Oral mucous membranes are pink and dry. He does have some brown spots noted to his hard palate. Conjunctivae are pink. Neck: Supple. Trachea is midline. Cardiovascular: Heart rate and rhythm are irregular with atrial fibrillation versus sinus rhythm with frequent ectopic beats on the monitor. There is a systolic murmur. Respiratory: Upper lobes have coarse rhonchi noted, diminished in the mid and bases. No work of breathing is noted. Abdomen: Soft, flat, and nontender. Bowel sounds are active. Integumentary: Skin is warm and dry. There is a Port-A-Cath to the right upper chest, the site is without edema, erythema, or drainage. Neurologic: He is awake, alert, oriented, and able to move around in the bed with generalized weakness. LABORATORY AND X-RAY: None available today. ASSESSMENT AND PLAN: Mr. Morillo is being treated for bacteremia, urinary tract infection, and a multidrug resistant Pseudomonas in his sputum. Microbiology has been asked to check susceptibility to Avycaz, Colistin, and meropenem for the multidrug resistance Pseudomonas. At this point, he is receiving daptomycin for the methicillin-resistant Staphylococcus aureus bacteremia and meropenem for the Pseudomonas in his urine and sputum. We will continue these at this time, awaiting further susceptibility testing. Based on his sterile blood cultures, today is day 4 of treatment for his bacteremia. Today, the plan is to have his Port-A-Cath removed. These plans have been discussed with and recommended by Dr. Luna. COMORBIDITIES: For Mr. Morillo include that he is elderly with chronic obstructive pulmonary disease, aortic stenosis, and urothelial carcinoma. Dictated by SASHA Hanley for Negro Luna MD cc: Negro Luna MD MTDD
--- NOTE | 2019-10-20 12:44 | OPERATIVE NOTE ---
PROCEDURE DATE: 10/20/2019 PREOPERATIVE DIAGNOSIS: Infected right external jugular Port-A-Cath. POSTOPERATIVE DIAGNOSIS: Infected right external jugular Port-A-Cath. PRINCIPAL PROCEDURE: Removal of right external jugular Port-A-Cath. SURGEON: Blanca Hudson M.D. ANESTHESIA: Local with IV sedation. ESTIMATED BLOOD LOSS: 20 mL. DRAINS: None. INDICATIONS: Jayesh Morillo is an 84-year-old, white male, who has bladder cancer. He has been receiving chemotherapy. He has been hospitalized with urinary tract infection, and it was felt that his port may also have infection, and we were asked to remove it. DESCRIPTION OF PROCEDURE: The patient was brought to the operating room, placed supine, received IV sedation. His right chest was prepped and draped within the sterile field. We used local anesthetic at our incision site. I made a small incision in the previous scar below the port, anterior right chest, with a 15 blade scalpel. I used cautery to control bleeding, and I mobilized the port from its subcutaneous pocket using mostly cautery. There were two stitches I had to divide to completely mobilize the port. The port and catheter came out through this one incision. We held pressure at the base of the right neck, where the catheter was inserted into the vein. I closed the incision loosely with two simple 3-0 nylon stitches, and I packed the wound open with iodoform gauze, and a dry dressing was applied. He tolerated the procedure well with plans for him to go to the recovery room and then return to the floor. cc: Blanca Hudson MD
[2019-10-20] MEDS ORDERED: XANAX PO ONE (13:13)
[2019-10-20] MEDS ORDERED: MAGNESIUM SULFATE 2 GM/S.W.I. 2 GM/50 ML IVPB IV ONE (13:13)
[2019-10-20] MEDS: MIRALAX PO SCH (13:36)
[2019-10-20] MEDS: LASIX PO SCH (13:36)
[2019-10-20] MEDS: SINGULAIR PO SCH (13:36)
[2019-10-20] MEDS: DULCOLAX PR SCH ×2 (13:37→20:17)
[2019-10-20] MEDS: TYLENOL PO PRN ×2 (13:39→21:46)
--- NOTE | 2019-10-20 14:54 | INFECTIOUS DISEASE PROGRESS NO ---
DATE: 10/20/2019 PRESENT ILLNESS: The patient has a methicillin-resistant Staph aureus bacteremia, which I think originated from his Port-A-Cath. The patient also has a Pseudomonas urinary tract infection and a different Pseudomonas pneumonia which is multiply drug resistant. MEDICATIONS: The patient is receiving daptomycin for the Staph bacteremia, and meropenem for the Pseudomonas urinary tract infection and pneumonia. PHYSICAL EXAMINATION: Vital Signs: Temperature is 97.7 degrees, pulse 92, respirations 22, blood pressure 130/55. General: This is a chronically ill-appearing, elderly male. He has just returned from surgery, where he had his Port-A-Cath removed by Dr. Hudson. HEENT: He can hear my spoken words and see no objects. I did not see any white patches in his mouth. Neck: No pain with movement. Lungs: Clear to auscultation. Cardiovascular: Heart rate is irregular. Abdomen: Soft and nontender. Thorax: The site on the right chest where the Port-A-Cath was removed has a large dressing on it. The dressing is intact. Neurologic: The patient is alert. He can move his extremities. There is no tremor. LABORATORY DATA: CBC shows a white count of 15,850, hemoglobin 12, platelet count 106,000. Creatinine is 0.7. GFR is greater than 60. Liver function studies are normal. ASSESSMENT AND PLAN: The patient has a Staphylococcus bacteremia and Pseudomonas urinary tract infection and pneumonia. My plan is to continue meropenem and daptomycin. The multiply drug- resistant Pseudomonas in the sputum has been sent for additional antibiotic testing against Avycaz, colistin, and meropenem. COMORBIDITIES: The patient is elderly, and he has chronic obstructive pulmonary disease, aortic stenosis, and urothelial carcinoma. cc: Negro Luna MD
--- NOTE | 2019-10-20 15:34 | HEMO/ONC PROGRESS NOTE ---
DATE: 10/20/2019 SUBJECTIVE: Mr. Morillo is awake and aware that he was going to his surgical procedure this morning. He denies any pain. He is oriented. He had no significant events since we have seen him last. VITAL SIGNS: Temperature 98.1 degrees, pulse rate 54, respiratory rate 16, blood pressure 109/50, O2 saturation 96% on room air. PHYSICAL EXAMINATION: General: Chronically ill-appearing gentleman in no acute distress. HEENT: Sclerae anicteric. PERRLA. Oral mucosa is dry. Cardiovascular: Normal S1, S2. Irregular rate and rhythm. Systolic murmur noted. Respiratory: Coarse rhonchi noted throughout. Diminished breath sounds. Normal respiratory effort. Abdomen: Soft, nontender, nondistended. Bowel sounds are active. Neurological: Alert and oriented. Follows commands well. Extremities: No lower extremity edema noted. LABS: No laboratory done today. ASSESSMENT AND PLAN: 1. 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 The patient was currently undergoing chemotherapy and radiation but has currently been stopped due to his recent hospitalizations. The patient is also been followed by Dr. Onofre. 2. Methicillin-resistant Staphylococcus aureus bacteremia. This is believed to be originated from his port. The patient is having his Port-A-Cath removed today. 3. Urinary tract infection with Pseudomonas aeruginosa. The patient came in with sepsis. Has been on antibiotics for several days now. He came in with a significant amount of confusion which has now improved. The patient is continuing management per hospitalist and Dr. Luna. 4. Right upper lobe pneumonia with Pseudomonas. The patient has been on numerous antibiotics per medical staff and Dr. Luna. He is continuing to improve. Continue management per the medical team. 5. Deep venous thrombosis prophylaxis. Keep the patient on Lovenox subcu. Get him up moving around when he can. Dictated by SASHA Santiago for Moustapha Zhu MD cc: Moustapha Zhu MD
[2019-10-20] MEDS: CUBICIN 600 MG in NS 100 ML IV SCH (16:21)
[2019-10-20] MEDS: LOVENOX SUBQ SCH (20:16)
--- NOTE | 2019-10-20 20:59 | PROGRESS NOTE ---
DATE: 10/20/2019 SUBJECTIVE: The patient is resting comfortably. He had his Port-A-Cath removed earlier today. OBJECTIVE: Vital Signs: Temperature 97.4 degrees, blood pressure 134/71, heart rate 75, respirations 18, O2 saturation 98% on room air. General: This is a chronically ill-appearing elderly male sitting up in bed in no acute distress. Heart: S1, S2 normal. Regular rate and rhythm. Lungs: Clear to auscultation bilaterally. No wheezing. No rales. No rhonchi. Abdomen: Positive bowel sounds. Soft, nontender, nondistended. Extremities: The patient has multiple skin tears on both lower extremities as well as bruising. Neurologic: The patient is alert and oriented x3. LABS: White blood cell count 15, hemoglobin 12, hematocrit 36, platelets 106,000. Sodium 135, potassium 4.2, chloride 96, CO2 30, BUN 18, creatinine 0.7 glucose 108, albumin 1.9. ASSESSMENT AND PLAN: 1. Right lower lobe pneumonia secondary to Pseudomonas. Continue with the current antibiotic therapy. The patient has normal oxygen saturation on room air. 2. Urinary tract infection secondary to Pseudomonas. Continue with the current antibiotic regimen as directed by Dr. Luna. 3. Bacteremia secondary to methicillin-resistant Staphylococcus aureus. Continue with antibiotic therapy as directed by Dr. Luna. 4. Status post removal of an infected Port-A-Cath. Aware. 5. Sepsis. Resolved. 6. Metabolic encephalopathy. Resolved. 7. Bladder cancers. Aware. Oncology is following. 8. Pulmonary fibrosis. Aware. 9. Chronic obstructive pulmonary disease exacerbation. Improved. The patient no longer requires supplemental oxygen. 10. Constipation, improved. Continue on the current laxative regimen. 11. Continue with physical therapy. cc: Kena Kelsey MD
[2019-10-20] MEDS: MELATONIN PO PRN (21:42)
[2019-10-21] MEDS: DUONEB (A & A) INH SCH ×4 (03:22→21:57)
[2019-10-21] MEDS: MERREM 2 GM in NS 100 ML IV SCH ×3 (06:50→22:06)
[2019-10-21] MEDS: PRILOSEC PO SCH (06:51)
[2019-10-21] MEDS: ROBITUSSIN-DM PO PRN ×2 (06:51→09:51)
[2019-10-21 08:51] LABS: BASO# 0.03 X1000 (0.0-0.2); BASO% 0.2 % (0.0-0.8); EOS# 0.03 X1000 (0.0-0.7); EOS% 0.2 % (0.0-10.0); HEMATOCRIT 39.6 % (42.0-52.0); HEMOGLOBIN 12.6 g/dL (14.0-18.0); IMM GRAN# 0.16 X1000 (0.0-0.04); LYMPH% 3.1 % (20.5-51.1); MCHC 31.8 g/dL (33-37); MCV 97.5 FL (81-99); MONO# 1.49 X1000 (0.11-0.59); MONO% 9.1 % (1.7-9.3); MPV 11.3 FL (7.4-10.4); NEUT# 14.16 X1000 (1.4-6.5); NEUT% 86.4 % (42.2-75.2); PLT 117 X1000 (130-400); RBC 4.06 XMIL (4.7-6.1); RDW 17.4 % (11.5-14.5); WBC 16.37 X1000 (4.8-10.8)
[2019-10-21 09:29] LABS: AGAP 10; BUN 23 mg/dL (8-22); CALCIUM 8.1 mg/dL (8.8-10.2); CHLORIDE 96 mmol/L (98-107); COSMO 273; CREATININE 0.7 mg/dL (0.7-1.2); ESTIMATED GFR > 60; GLUCOSE 152 mg/dL (70-104); POTASSIUM 4.5 mmol/L (3.5-5.1); SODIUM 133 mmol/L (136-145); TCO2 27 mmol/L (25-35)
[2019-10-21] MEDS: SINGULAIR PO SCH (09:49)
[2019-10-21] MEDS: SOLU-MEDROL IV SCH (09:49)
[2019-10-21] MEDS: LASIX PO SCH (09:49)
[2019-10-21] MEDS: DULCOLAX PR SCH ×2 (09:50→20:19)
[2019-10-21] MEDS: MIRALAX PO SCH (09:50)
[2019-10-21] MEDS: TYLENOL PO PRN ×2 (09:56→22:06)
[2019-10-21] MEDS: ADVAIR 100/50 DISKUS INH SCH ×2 (10:15→21:57)
[2019-10-21 12:43] LABS: BANDS 1 % (0-1); LYMPHS 3 % (21-51); MONO 1 % (1-9); SEGS 95 % (42-75)
--- NOTE | 2019-10-21 13:13 | HEMO/ONC PROGRESS NOTE ---
DATE: 10/21/2019 SUBJECTIVE: Mr. Morillo states he is comfortable this morning. He had no complications with his procedure yesterday. He states he feels well. He denies any pain. He is not on any oxygen and denies shortness of breath. OBJECTIVE: Vital Signs: Temperature 97.9 degrees, pulse rate 88, respiratory rate 18, blood pressure 132/56, O2 saturation 95% on room air. He is in 0/10 pain. General: On physical examination, a chronically ill-appearing gentleman in no acute distress. HEENT: Sclerae is anicteric. PERRLA. Oral mucosa is dry. Cardiovascular: Normal S1, S2. Heart rate and rhythm regular. Respiratory: Lung sounds clear to auscultation today; diminished at the bases. Normal respiratory effort. Abdomen: Soft, nontender, nondistended. Bowel sounds are active. Neurological: Alert and oriented. Follows commands. Extremities: No lower extremity edema noted. LABORATORY: WBCs 16.37, hemoglobin 12.6, hematocrit 39.6, platelet count 117. Sodium 133, potassium 4.5, creatinine 0.7, calcium 8.1. ASSESSMENT AND PLAN: 1. 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 The patient's treatment is currently on hold for this hospitalization. We will re-evaluate the patient as an outpatient and consider further therapy. 2. methicillin-resistant Staphylococcus aureus bacteremia. The patient's Port-A-Cath was removed yesterday. He tolerated the procedure well. The patient is healing well. 3. Urinary tract infection with Pseudomonas aeruginosa. The patient came in with sepsis, most likely due to this urine infection. He has been on antibiotics for several days. His confusion has improved. Continue management per Dr. Luna and Hospitalist Service. 4. Right upper lobe pneumonia. The patient has been on numerous antibiotics per medical staff and Dr. Luna. He is continuing to improve. Continue management per medical team. 5. Deep venous thrombosis prophylaxis. Keep the patient on Lovenox subcutaneous. Get him up and moving when you can. Continue patient with physical therapy. Dictated by SASHA Santiago for Moustapha Zhu MD Recurrent UTI's and hospitalizations. Now with MRSA port infection. Has only received 03/10 radiation treatments. Once he recovers, we can reevaluate and reconsider therapy. Will sign off. Please call with questions. Moustapha Montesinos MD cc: Moustapha Zhu MD [facility]
[2019-10-21] MEDS: SENOKOT PO SCH (14:30)
--- NOTE | 2019-10-21 14:50 | INFECTIOUS DISEASE PROGRESS NO ---
DATE: 10/21/2019 PRESENT ILLNESS: Mr. Morillo has a methicillin-resistant Staphylococcus aureus bacteremia which we think came from his Port-A-Cath, which has been removed. There is also a pseudomonas urinary tract infection as well as a multidrug resistant pseudomonas pneumonia. MEDICATIONS: He is receiving daptomycin 600 mg IV daily and meropenem 2 g IV every 8 hours. Based on his sterile blood cultures, today is day 5 of his treatment for the bacteremia. PHYSICAL EXAMINATION: Vital Signs: Temperature is 97.9 degrees, pulse rate 88, respiratory rate 18, blood pressure 132/56, O2 saturation is 95% on room air. General: This is a chronically ill- appearing, elderly gentleman. He is sitting up in the bed, currently in no acute distress. HEENT: Atraumatic, normocephalic. Oral mucous membranes are pink and dry. Conjunctivae are pink. Neck: Supple. Trachea is midline. Cardiovascular: Heart rate and rhythm are irregular with sinus rhythm with frequent ectopic beats versus atrial fibrillation on the monitor. He does have a systolic murmur. Respiratory: Coarse wheezes noted throughout. No work of breathing is noted. Abdomen: Soft, flat, nontender. Bowel sounds are active. Integumentary: Skin is warm and dry. There is a dressing in place to the right upper chest where the Port-A-Cath has been removed. There is a small amount of shadowing drainage noted. Neurologic: He is awake, alert, and oriented. Able to move around in the bed with generalized weakness noted. LABORATORY AND X-RAY: Today, his white count is 16.37, hemoglobin 12.6, platelet count 117,000. Creatinine is 0.7. Estimated GFR is greater than 60. No imaging reports today. ASSESSMENT AND PLAN: Mr. Morillo is being treated for a methicillin-resistant Staphylococcus aureus bacteremia as well as a pseudomonas urinary tract infection and pneumonia. We are awaiting susceptibility testing against Avycaz, colistin, and meropenem for the pseudomonas in his sputum. For now, we will continue the daptomycin for the methicillin-resistant Staphylococcus aureus bacteremia, which will require 9 more days of treatment to complete a 14 day course. We will also continue the meropenem for the urinary tract infection and pneumonia. These plans have been discussed with and recommended by Dr. Luna. COMORBIDITIES: For Mr. Morillo include that he is elderly with COPD, aortic stenosis, and urothelial cancer. Dictated by SASHA Hanley for Negro Luna MD cc: Negro Luna MD
[2019-10-21] MEDS: CUBICIN 600 MG in NS 100 ML IV SCH (16:42)
[2019-10-21] MEDS: LOVENOX SUBQ SCH (20:19)
[2019-10-21] MEDS: MELATONIN PO PRN (22:07)
[2019-10-22] MEDS: DUONEB (A & A) INH SCH ×4 (03:59→22:05)
--- NOTE | 2019-10-22 04:33 | PROGRESS NOTE ---
DATE: 10/21/2019 SUBJECTIVE: The patient is sitting up in bed resting comfortably. He complains of a mild cough, but otherwise states that he is feeling good today. OBJECTIVE: Vital Signs: Temperature 97.6 degrees, blood pressure 119/51, heart rate 78, respirations 18, O2 saturation 96% on room air. General: This is a chronically ill-appearing elderly male, lying in bed in no acute distress. Heart: S1, S2 normal. Regular rate and rhythm. Lungs: Clear to auscultation bilaterally. No wheezes. No rales. No rhonchi. Abdomen: Positive bowel sounds. Soft, nontender, nondistended. Extremities: No edema, no cyanosis, no calf tenderness. The patient has multiple skin tears on his legs. Neurologic: The patient is hard of hearing, but alert and oriented x3. LABS: White blood cell count 16, hemoglobin 12, hematocrit 39, platelets 117,000. Sodium 133, potassium 4.5, chloride 96, CO2 27, BUN 23, creatinine 0.7, glucose 152. ASSESSMENT AND PLAN: 1. Pneumonia, secondary to Pseudomonas. Continue on the current antibiotic regimen. 2. Urinary tract infection, secondary to Pseudomonas. Continue on the current antibiotic regimen. 3. Bacteremia, secondary to methicillin-resistant Staphylococcus aureus. Continue on daptomycin. 4. Status post removal of an infected Port-A-Cath. Aware. 5. Sepsis. Resolved. 6. Metabolic encephalopathy. Resolved. 7. 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 Aware. 8. Chronic obstructive pulmonary disease exacerbation. Improved. 9. Pulmonary fibrosis. Aware. 10. Continue with physical therapy. 11. Disposition. The patient will be discharged home once medically stable. cc: Kena Kelsey MD
[2019-10-22] MEDS: PRILOSEC PO SCH (06:34)
[2019-10-22] MEDS: MERREM 2 GM in NS 100 ML IV SCH ×3 (06:34→22:26)
--- NOTE | 2019-10-22 07:36 | PROGRESS NOTE ---
DATE: 10/22/2019 Mr. Morillo is now postop day 2 from removal of a right-sided port. I had packed the wound open. I removed the packing this morning. He has 2 stitches that have closed his wound loosely on his anterior chest and those stitches need to be removed in a week. If he does go home and have home health, hopefully, they can remove these stitches without a trip to my outpatient offices. cc: Blanca Hudson MD
[2019-10-22 08:12] LABS: BASO# 0.02 X1000 (0.0-0.2); BASO% 0.1 % (0.0-0.8); EOS# 0.03 X1000 (0.0-0.7); EOS% 0.2 % (0.0-10.0); HEMATOCRIT 41.4 % (42.0-52.0); HEMOGLOBIN 13.4 g/dL (14.0-18.0); IMM GRAN% 1.2 % (0.0-0.5); LYMPH# 0.52 X1000 (1.2-3.4); LYMPH% 3.1 % (20.5-51.1); MCH 31.2 PG (27-31); MCHC 32.4 g/dL (33-37); MCV 96.5 FL (81-99); MONO# 2.02 X1000 (0.11-0.59); MPV 10.9 FL (7.4-10.4); NEUT# 14.03 X1000 (1.4-6.5); NEUT% 83.4 % (42.2-75.2); PLT 149 X1000 (130-400); RBC 4.29 XMIL (4.7-6.1); RDW 17.4 % (11.5-14.5); WBC 16.82 X1000 (4.8-10.8)
[2019-10-22] MEDS: SINGULAIR PO SCH (08:20)
[2019-10-22] MEDS: LASIX PO SCH (08:21)
[2019-10-22] MEDS: MIRALAX PO SCH (08:21)
[2019-10-22] MEDS: SOLU-MEDROL IV SCH (08:21)
[2019-10-22] MEDS: SENOKOT PO SCH ×3 (08:21→21:00)
[2019-10-22] MEDS: DULCOLAX PR SCH (08:22)
[2019-10-22 08:30] LABS: MAGNESIUM 1.7 mg/dL (1.5-2.7)
[2019-10-22 08:37] LABS: AGAP 10; BUN 22 mg/dL (8-22); CALCIUM 8.1 mg/dL (8.8-10.2); CHLORIDE 94 mmol/L (98-107); COSMO 276; CREATININE 0.7 mg/dL (0.7-1.2); ESTIMATED GFR > 60; GLUCOSE 144 mg/dL (70-104); POTASSIUM 4.4 mmol/L (3.5-5.1); SODIUM 135 mmol/L (136-145); TCO2 31 mmol/L (25-35)
[2019-10-22] MEDS: ROBITUSSIN-DM PO PRN (12:11)
[2019-10-22] MEDS: XANAX PO PRN (14:04)
[2019-10-22] MEDS: ADVAIR 100/50 DISKUS INH SCH ×2 (14:14→22:05)
[2019-10-22] MEDS ORDERED: MAGNESIUM SULFATE 2 GM/S.W.I. 2 GM/50 ML IVPB IV ONE (15:04)
--- NOTE | 2019-10-22 15:26 | PROGRESS NOTE ---
DATE: 10/22/2019 SUBJECTIVE: The patient is sitting up in bed. He has no complaints at this time. No acute events noted overnight. OBJECTIVE: Vital Signs: Temperature 97.8 degrees, blood pressure 142/93, heart rate 72, respirations 16, O2 saturation is 97% on room air. General: This is a chronically ill-appearing, elderly male lying in bed, in no acute distress. Heart: S1, S2 normal. Regular rate and rhythm. Lungs: Coarse breath sounds bilaterally. Abdomen: Positive bowel sounds. Soft, nontender, nondistended. Extremities: The patient has multiple skin tears on his legs. No edema noted. Neurologic: The patient is alert and oriented x4. LABS: White blood cell count 16, hemoglobin 13, hematocrit 41, platelets 149,000. Sodium 135, potassium 4.4, chloride 94, CO2 31, BUN 22, creatinine 0.7, glucose 144, phosphorus 2, magnesium 1.7. ASSESSMENT AND PLAN: 1. Pneumonia secondary to Pseudomonas. Continue with the current antibiotic regimen as directed by Dr. Luna. 2. Bacteremia secondary to methicillin-resistant Staphylococcus aureus. Continue on the current antibiotic regimen. 3. Urinary tract infection secondary to Pseudomonas. Continue with antibiotic therapy. 4. Sepsis. Resolved. 5. Status post removal of an infected Port-A-Cath. Stable. 6. 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 Aware. 7. Chronic obstructive pulmonary disease. Improved. 8. Pulmonary fibrosis. Aware. 9. Constipation. We will increase the laxative therapy to twice a day. 10. Deep vein thrombosis prophylaxis. Continue on Lovenox. cc: Kena Kelsey MD
[2019-10-22] MEDS ORDERED: SODIUM PHOSPHATE 30 MMOL in NS 250 ML IV ONE (16:00)
[2019-10-22] MEDS: CUBICIN 600 MG in NS 100 ML IV SCH (16:56)
--- NOTE | 2019-10-22 17:00 | Diag Imaging Result Doc PS360 ---
EXAM: FLAT/UPRIGHT ABD/1 VIEW CHEST INDICATION: constipation/pneumonia TECHNIQUE: 3 views COMPARISON: CT chest dated 10/15/2019 FINDINGS: There is abundant stool throughout the colon suggesting constipation. There are several mildly gas distended loops of small bowel that are nonspecific but are probably related to the constipation. There is nothing that would necessarily suggest obstruction. There is gas density seen below both diaphragms. However, this appears to be due to gas-distended loops of colon that are interposed between the liver and anterior abdominal wall and anterior to the spleen. This has been seen on previous plain radiographs as well as on CT. There has been interval removal of the right chest port. Coarse patchy infiltrates seen throughout both lungs are similar to the previous study. There appears to be some worsening of infiltrate in the left upper lobe as compared to the previous study. There is no discrete pleural fluid collection or pneumothorax. Central vasculature is prominent likely previous study. Cardiac silhouette is essentially stable, otherwise. IMPRESSION: 1.Suggestion of constipation. 2.Several mildly gas distended loops of small bowel that is probably related to the constipation. 3.Extensive patchy infiltrates seen throughout both lungs that is probably slightly worse at the left upper lobe as compared to the previous study. Electronically signed by Aung Kay 10/22/2019 4:57 PM
[2019-10-22] MEDS: MELATONIN PO PRN (19:41)
[2019-10-22] MEDS: LACTULOSE PO SCH ×2 (19:41→21:00)
[2019-10-22] MEDS: LOVENOX SUBQ SCH (19:42)
[2019-10-22] MEDS: TYLENOL PO PRN (19:45)
--- NOTE | 2019-10-22 20:50 | INFECTIOUS DISEASE PROGRESS NO ---
DATE: 10/22/2019 PRESENT ILLNESS: Mr. Morillo is being treated for a methicillin-resistant Staph aureus bacteremia which most likely came from his Port-A-Cath, which has been removed. He also has a Pseudomonas urinary tract infection and a multidrug resistant Pseudomonas pneumonia. MEDICATIONS: Based on his sterile blood cultures, today is day 6 of treatment for his bacteremia. He is receiving daptomycin 600 mg IV daily, which he will need for 8 more days. He is also receiving meropenem 2 g IV every 8 hours for his Pseudomonas urinary tract infection and pneumonia. PHYSICAL EXAMINATION: Vital Signs: Temperature is 97.8 degrees, pulse rate 82, respiratory rate 16, blood pressure 142/93, O2 saturation is 96% on room air. General: This is a chronically ill- appearing, elderly male. He is lying in bed currently in no acute distress. Lethargic but arousable. HEENT: Atraumatic, normocephalic. Oral mucous membranes are pink and dry. Conjunctivae are pink. Neck: Supple. Trachea is midline. Cardiovascular: Heart rate and rhythm are irregular with atrial fibrillation versus sinus rhythm and frequent ectopic beats on the monitor. He does have a systolic murmur. Respiratory: Lung sounds have wheezes noted throughout. No work of breathing is noted. He does have a frequent dry cough. Abdomen: Soft, flat and nontender. Bowel sounds are active. Integumentary: Skin is warm and dry. The dressing to his right chest where the previous Port-A-Cath had been removed is clean, dry and intact. Neurologic: He is drowsy and lethargic, but arousable. Able to move around in the bed with generalized weakness. LABORATORY AND X-RAY: Today his white count is 16.82, hemoglobin 13.4, platelet count 149,000. Creatinine is 0.7, estimated GFR is greater than 60. Creatine kinase is 52. No imaging reports today. ASSESSMENT AND PLAN: Mr. Morillo is being treated for a MRSA bacteremia and a Pseudomonas urinary tract infection and pneumonia. We are still continuing to wait for susceptibility testing against Avycaz, colistin and meropenem for the Pseudomonas in his sputum. He does have a continued cough. We have not done an x-ray recently; however, it appears that a flat and upright has been ordered for this afternoon. So, we will await those results. For now, we will continue daptomycin for his bacteremia, which will require 8 more days of treatment. He will also need to continue the meropenem for the urinary tract infection and pneumonia, pending the results of susceptibility testing. These plans have been discussed with and recommended by Dr. Luna. COMORBIDITIES: For Mr. Morillo include that he is elderly with chronic obstructive pulmonary disease, aortic stenosis, and urothelial cancer. Dictated by SASHA Hanley for Negro Luna MD cc: Negro Luna MD [facility]
--- NOTE | 2019-10-22 21:15 | INFECTIOUS DISEASE PROGRESS NO ---
DATE: 10/22/2019 PRESENT ILLNESS: The patient has methicillin-resistant Staph aureus bacteremia, which I think came from his Port-A-Cath, which subsequently has been removed. The patient has a Pseudomonas urinary tract infection and a multidrug resistant Pseudomonas pneumonia. MEDICATIONS: The patient has been on daptomycin now for 7 days and meropenem for 3 days. PHYSICAL EXAMINATION: Vital Signs: Temperature is 97.8 degrees, pulse 82, respirations 16, blood pressure 142/93. General: This is a chronically ill-appearing elderly male. He is in no acute distress. Head/eyes/ears/nose/throat: He can hear my spoken words and see near objects. He does not have any white coating on his tongue. Neck: No pain with movement. Cardiovascular: Heart rate is irregular. Lungs: There were bilateral rhonchi. Abdomen: Soft and nontender. Thorax: The patient's previous site of the Port-A-Cath has a dressing over. The dressing is intact. Neurologic: The patient is slightly lethargic. He did follow request to move his extremities. LABORATORY AND X-RAY DATA: X-rays were just taken in the patient's room of his abdomen and chest, the readings of which are pending at this time. His CBC shows a white count of 16,820, hemoglobin 13.4, and platelet count 149,000. The patient does have a leukocytosis, but I think this could be due to the fact that he is on steroids also. ASSESSMENT AND PLAN: The patient is going to continue treatment for his bacteremia, pneumonia and urinary tract infection with the combination of daptomycin and meropenem. COMORBIDITIES: The patient is elderly. He has COPD, aortic stenosis and urothelial cancer. cc: Negro Luna MD
[2019-10-22] MEDS: ULTRAM PO PRN (22:06)
[2019-10-23] MEDS: XANAX PO PRN (03:02)
[2019-10-23] MEDS: DUONEB (A & A) INH SCH ×5 (03:31→23:25)
[2019-10-23] MEDS: PRILOSEC PO SCH (06:18)
[2019-10-23 08:09] LABS: BASO# 0.04 X1000 (0.0-0.2); BASO% 0.2 % (0.0-0.8); EOS# 0.18 X1000 (0.0-0.7); HEMATOCRIT 43.1 % (42.0-52.0); HEMOGLOBIN 13.8 g/dL (14.0-18.0); IMM GRAN# 0.33 X1000 (0.0-0.04); IMM GRAN% 1.8 % (0.0-0.5); LYMPH# 1.16 X1000 (1.2-3.4); LYMPH% 6.4 % (20.5-51.1); MCH 30.9 PG (27-31); MCV 96.6 FL (81-99); MONO# 1.78 X1000 (0.11-0.59); MONO% 9.8 % (1.7-9.3); MPV 10.7 FL (7.4-10.4); NEUT# 14.71 X1000 (1.4-6.5); NEUT% 80.8 % (42.2-75.2); PLT 155 X1000 (130-400); RBC 4.46 XMIL (4.7-6.1); RDW 17.6 % (11.5-14.5)
[2019-10-23 08:38] LABS: AGAP 11; ALB/GLOB RATIO 0.3; ALBUMIN 1.9 g/dL (3.5-5.0); ALKALINE PHOSPHATASE 111 U/L (32-122); BUN 21 mg/dL (8-22); CHLORIDE 97 mmol/L (98-107); COSMO 275; CREATININE 0.7 mg/dL (0.7-1.2); ESTIMATED GFR > 60; GLUCOSE 158 mg/dL (70-104); GOT 27 U/L (10-34); GPT 22 U/L (10-44); POTASSIUM 4.5 mmol/L (3.5-5.1); SODIUM 134 mmol/L (136-145); TCO2 26 mmol/L (25-35); TOTAL BILIRUBIN 0.87 mg/dL (0.20-1.00); TOTAL PROTEIN 7.6 g/dL (6.3-8.3)
[2019-10-23 08:52] LABS: MAGNESIUM 2.1 mg/dL (1.5-2.7)
[2019-10-23] MEDS: SOLU-MEDROL IV SCH (08:56)
[2019-10-23] MEDS: LACTULOSE PO SCH ×2 (08:57→21:16)
[2019-10-23] MEDS: LASIX PO SCH (08:57)
[2019-10-23] MEDS: SENOKOT PO SCH ×2 (08:57→21:16)
[2019-10-23] MEDS: MIRALAX PO SCH (08:57)
[2019-10-23] MEDS: SINGULAIR PO SCH (08:58)
[2019-10-23] MEDS: MERREM 2 GM in NS 100 ML IV SCH ×3 (10:18→21:15)
[2019-10-23] MEDS: ADVAIR 100/50 DISKUS INH SCH ×3 (10:43→19:59)
--- NOTE | 2019-10-23 12:00 | Diag Imaging Result Doc PS360 ---
EXAM: CT HEAD W/O CONTRAST 10/23/2019 HISTORY: encephalopathy TECHNIQUE: This exam was performed using automated exposure control, adjustment of mA or kV according to patient size, and/or use of iterative reconstruction technique. COMMENT: There is no evidence of mass effect, bleed, or abnormal extra-axial fluid collection. There are calcifications in the vertebral and internal carotid arteries bilaterally. Compared to 10/13/2019 the appearance the brain has not changed significantly. IMPRESSION: No evidence of acute disease. Electronically signed by Neil Miranda 10/23/2019 11:58 AM
--- NOTE | 2019-10-23 12:04 | Diag Imaging Result Doc PS360 ---
EXAM: CT THORAX W/O CONTRAST 10/23/2019 HISTORY: pneumonia TECHNIQUE: This exam was performed using automated exposure control, adjustment of mA or kV according to patient size, and/or use of iterative reconstruction technique. COMMENT: The current examination is compared with 09/30/2019. There are patchy dense alveolar and groundglass opacities throughout both lungs particularly in the lower lobes right middle lobe and lingula and right apex. This is far worse than on the previous study. There is a large amount of retained gastric contents. There is extensive coronary calcification. There is severe constipation. There is a pleural effusion on the right which was not present at the time the previous study. There is no evidence of acute bony abnormality. IMPRESSION: Worsened pneumonia. Right pleural effusion. Retained gastric contents and constipation. The possibility of aspiration pneumonia cannot be excluded. Electronically signed by Neil Miranda 10/23/2019 12:02 PM
[2019-10-23] MEDS ORDERED: FLEET MINERAL OIL ENEMA PR ONE (12:14)
[2019-10-23] MEDS ORDERED: DULCOLAX PR ONE (12:20)
[2019-10-23] MEDS: ERYTHROMYCIN 250 MG in NS 150 ML IV SCH ×2 (14:56→22:41)
[2019-10-23 14:58] LABS: ALLEN TEST YES; BE 5.9 mmoll (-3.0-3.0); BLOOD TYPE ARTERIAL; HCO3-(ACT) 29.3 mmoll (20.0-26.0); METHB 1.2 % (0.0-1.5); O2(CT) 17.4 mL/dL (15.0-23.0); PCO2(98.6) 39 mmHg (35-45); PO2(98.6) 52 mmHg (60-100); SAMPLE BLOOD; SAO2 91.8 % (95.0-100.0); THB 14.1 g/dL (11.5-17.4); pH(98.6) 7.49 (7.35-7.45)
[2019-10-23 14:59] LABS: MODALITY ROOM AIR
[2019-10-23] MEDS: ULTRAM PO PRN ×2 (15:53→22:41)
[2019-10-23] MEDS ORDERED: MISC. PHARMACY COMMUNICATION SCH (16:15)
[2019-10-23] MEDS: CUBICIN 600 MG in NS 100 ML IV SCH (16:22)
--- NOTE | 2019-10-23 18:43 | PROGRESS NOTE ---
DATE: 10/23/2019 SUBJECTIVE: The patient states that he had a horrible night. He states that he had difficulty swallowing his breakfast this morning and did not want to eat anything. He has been coughing more. OBJECTIVE: Vital Signs: Temperature 97.4 degrees, and blood pressure 143/52, heart rate 90, respirations 16, O2 saturation 94% on room air. General: This is a chronically ill-appearing elderly male lying in bed in no acute distress. Heart: S1, S2 normal. Regular rate and rhythm. Lungs: Coarse breath sounds bilaterally with rhonchi. Abdomen: Positive bowel sounds. Soft. Extremities: The patient has multiple skin tears on his legs. No edema noted. Neurologic: The patient is alert but has periods of confusion at times. LABS: White blood cell count 18, hemoglobin 13, hematocrit 43 platelets 155,000. Sodium 134, potassium 4.5, chloride 97, CO2 26, BUN 21, creatinine 0.7, glucose 158, albumin 1.9. IMAGING: CT of the chest shows worsening pneumonia. Right pleural effusion. Retained gastric contents and constipation. Possible aspiration. Head CT: No acute abnormality. ASSESSMENT AND PLAN: 1. Worsened bilateral lobe pneumonia secondary to pseudomonas. This was discussed with Dr. Luna. He is going to adjust the patient's antibiotic regimen. Will increase the frequency of bronchodilator therapy. Continue with oxygen and consult with the youth care professional. 2. Severe constipation. An enema has been ordered. Continue with scheduled laxative therapy. The patient has been refusing suppositories in the in this past week. 3. Bacteremia secondary to methicillin-resistant Staphylococcus aureus. Continue with antibiotic therapy as directed by Dr. Luna. 4. Status post removal of infected Port-A-Cath. Aware. 5. Sepsis. Resolved. 6. Urinary tract infection secondary to Pseudomonas. Continue with antibiotic therapy. 7. 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 Aware. 8. Pulmonary fibrosis. Aware. 9. Chronic obstructive pulmonary disease. Improved. 10. Constipation. 11. Deep vein thrombosis prophylaxis. Continue on Lovenox. 12. Disposition. The patient will be transferred to the ICU for closer monitoring. cc: MD SRIDEVI Muniz
[2019-10-23] MEDS ORDERED: LASIX IV ONE (19:28)
[2019-10-23] MEDS: MUCOMYST 20% INH SCH (19:52)
--- NOTE | 2019-10-23 20:09 | INFECTIOUS DISEASE PROGRESS NO ---
DATE: 10/23/2019 PRESENT ILLNESS: The patient has a methicillin-resistant Staphylococcus aureus bacteremia, a Pseudomonas urinary tract infection, and a multidrug resistant Pseudomonas pneumonia. MEDICATIONS: The patient has been on daptomycin for 8 days and meropenem for 4 days. PHYSICAL EXAMINATION: Vital Signs: Temperature is 97.4 degrees, pulse 80, respirations 16, blood pressure is 143/52. General: This is a chronically, ill-appearing ,elderly male. He is in acute distress, he is coughing frequently. Head/eyes/ears/nose/throat: He can hear my spoken words and see near objects. I did not see any white coating in his mouth. Neck: No apparent pain with movement. Cardiovascular: Heart rate is irregular. Lungs: Bilateral rhonchi. Abdomen: Soft and nontender. Thorax: The patient's previous Port-a-Cath site has a dressing on it, the dressing is intact. Neurologic: The patient is lethargic. He does not have a tremor. LAB AND X-RAY: CT scan of the chest shows worsening pneumonia with possible aspiration. CK is 52. CBC shows a white count of 18,200, hemoglobin 13.8, platelet count 155,000. Creatinine 0.7, GFR is greater than 60. Liver function studies are normal. ASSESSMENT AND PLAN: The patient is going to continue receiving daptomycin for his bacteremia. Also, the patient's meropenem and will cover for the patient's Pseudomonas urinary tract infection. For the patient's multidrug-resistant Pseudomonas pneumonia, I am going to continue meropenem but start the patient on colistin. A side effect of that medication is renal toxicity. I have explained this to the patient and his son and they are willing to start the new antibiotic. Also, I am going to put in a consult for who is ever on Pulmonology. COMORBIDITIES: The patient is elderly, he has COPD, aortic stenosis, and urothelial cancer, and he also aspirates. cc: Negro Luna MD
[2019-10-23] MEDS: LOVENOX SUBQ SCH (21:15)
[2019-10-24] MEDS: MERREM 2 GM in NS 100 ML IV SCH ×3 (03:40→19:06)
[2019-10-24] MEDS: DUONEB (A & A) INH SCH ×6 (05:30→22:30)
[2019-10-24] MEDS: ULTRAM PO PRN (05:39)
[2019-10-24 05:45] LABS: ALLEN TEST YES; BE 8.3 mmoll (-3.0-3.0); BLOOD TYPE ARTERIAL; HCO3-(ACT) 31.3 mmoll (20.0-26.0); METHB 0.7 % (0.0-1.5); O2(CT) 17.4 mL/dL (15.0-23.0); O2HB 92.5 % (95.0-99.0); PCO2(98.6) 47 mmHg (35-45); PO2(98.6) 66 mmHg (60-100); SAMPLE BLOOD; SAO2 95.6 % (95.0-100.0); THB 13.4 g/dL (11.5-17.4); pH(98.6) 7.46 (7.35-7.45)
[2019-10-24 05:47] LABS: MODALITY CANNULA
[2019-10-24] MEDS: PRILOSEC PO SCH (06:31)
[2019-10-24 07:36] LABS: BASO# 0.04 X1000 (0.0-0.2); BASO% 0.2 % (0.0-0.8); EOS# 0.16 X1000 (0.0-0.7); EOS% 0.9 % (0.0-10.0); HEMATOCRIT 42.7 % (42.0-52.0); HEMOGLOBIN 13.6 g/dL (14.0-18.0); IMM GRAN# 0.36 X1000 (0.0-0.04); IMM GRAN% 2.1 % (0.0-0.5); LYMPH# 0.73 X1000 (1.2-3.4); LYMPH% 4.3 % (20.5-51.1); MCHC 31.9 g/dL (33-37); MCV 97.3 FL (81-99); MONO# 1.81 X1000 (0.11-0.59); MONO% 10.7 % (1.7-9.3); NEUT# 13.75 X1000 (1.4-6.5); NEUT% 81.8 % (42.2-75.2); PLT 154 X1000 (130-400); RBC 4.39 XMIL (4.7-6.1); RDW 17.8 % (11.5-14.5); WBC 16.85 X1000 (4.8-10.8)
[2019-10-24] MEDS ORDERED: COLISTIN IV ONE (08:00)
[2019-10-24] MEDS ORDERED: NS IV ONE (08:00)
[2019-10-24] MEDS: MUCOMYST 20% INH SCH ×2 (08:19→19:48)
[2019-10-24] MEDS: ADVAIR 100/50 DISKUS INH SCH ×3 (08:20→19:50)
[2019-10-24 08:40] LABS: BUN 27 mg/dL (8-22); CREATININE 0.7 mg/dL (0.7-1.2); ESTIMATED GFR > 60; TOTAL PROTEIN 7.5 g/dL (6.3-8.3)
[2019-10-24] MEDS: ERYTHROMYCIN 250 MG in NS 150 ML IV SCH ×3 (09:17→21:28)
[2019-10-24] MEDS: SENOKOT PO SCH ×2 (09:18→21:28)
[2019-10-24] MEDS: MIRALAX PO SCH (09:18)
[2019-10-24] MEDS: TYLENOL PO PRN (09:18)
[2019-10-24] MEDS: LASIX PO SCH (09:18)
[2019-10-24] MEDS: LACTULOSE PO SCH ×2 (09:18→21:27)
[2019-10-24] MEDS: SOLU-MEDROL IV SCH (09:18)
[2019-10-24] MEDS: SINGULAIR PO SCH (09:40)
[2019-10-24] MEDS ORDERED: DILAUDID IV ONE (10:02)
[2019-10-24 10:10] LABS: AGAP 17; ALB/GLOB RATIO 0.4; ALKALINE PHOSPHATASE 111 U/L (32-122); CALCIUM 8.6 mg/dL (8.8-10.2); CHLORIDE 97 mmol/L (98-107); COSMO 281; GLUCOSE 138 mg/dL (70-104); GOT 23 U/L (10-34); GPT 22 U/L (10-44); POTASSIUM 4.8 mmol/L (3.5-5.1); SODIUM 137 mmol/L (136-145); TCO2 23 mmol/L (25-35); TOTAL BILIRUBIN 0.94 mg/dL (0.20-1.00)
--- NOTE | 2019-10-24 13:00 | Diag Imaging Result Doc PS360 ---
EXAM: FLAT/UPRIGHT ABD/1 VIEW CHEST HISTORY: pneumonia/constipation TECHNIQUE: Flat and upright with chest, four views COMPARISON: 10/22/2019 FINDINGS: There are increased interstitial markings throughout both lungs. Mixed areas of improvement and worsening. No cardiomegaly. No pleural effusions identified. There is a large amount of stool throughout the colon. The colon is distended. No organomegaly. Prominent atherosclerosis. Mild scoliosis with degenerative spine changes. IMPRESSION: 1.Persistent bilateral infiltrates with areas of improvement and areas of worsening. 2.Prominent constipation Electronically signed by Gianni Bonds 10/24/2019 12:58 PM
[2019-10-24] MEDS ORDERED: CITRATE OF MAGNESIA PO ONE (13:20)
[2019-10-24] MEDS: CUBICIN 600 MG in NS 100 ML IV SCH (15:37)
--- NOTE | 2019-10-24 15:56 | PROGRESS NOTE ---
DATE: 10/24/2019 SUBJECTIVE: The patient is a little confused this morning. He complains of right shoulder pain. OBJECTIVE: Vital Signs: Temperature 98.6 degrees, blood pressure 111/69, heart rate 92, respirations 17, O2 saturation 96% on 2 L nasal cannula. Intake 950, output 1.1 L. General: This is a chronically ill-appearing elderly male lying in bed, slightly agitated. Heart: S1, S2 normal. Regular rate and rhythm. Lungs: Coarse breath sounds with rhonchi. Abdomen: Positive bowel sounds. Soft, obese, nontender, nondistended. Extremities: The patient has skin tears that appear to be healing on both legs. Trace pedal edema. Neurologic: The patient is alert and oriented to person, place, and time. LABS: White blood cell count 16, hemoglobin 13, hematocrit 42, platelets 154,000, sodium 137, potassium 4.8, chloride 97, CO2 23, BUN 27, creatinine 0.7, glucose 138. ABG, pH 7.46, pCO2 47, PO2 66, bicarb 31. ASSESSMENT AND PLAN: 1. Acute hypoxemic respiratory failure secondary to severe bilateral lobe Pseudomonas pneumonia. Continue with the current antibiotic regimen as directed by Dr. Luna. 2. Severe bilateral pneumonia secondary to Pseudomonas. Continue with antibiotics, bronchodilator therapy, and supplemental oxygen. 3. Bacteremia secondary to methicillin-resistant Staphylococcus aureus. Continue on daptomycin. 4. Status post removal of infected Port-A-Cath. Aware. 5. Constipation. Continue with scheduled laxative therapy. 6. 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 Aware. 7. Chronic obstructive pulmonary disease. Improved. 8. Pulmonary fibrosis. Aware. 9. Deep vein thrombosis prophylaxis. Continue on Lovenox. cc: Kena Kelsey MD
[2019-10-24] MEDS: COLISTIN IV SCH (20:10)
[2019-10-24] MEDS: NS IV SCH (20:10)
[2019-10-24] MEDS: DULCOLAX PR SCH (21:28)
[2019-10-24] MEDS: LOVENOX SUBQ SCH (21:29)
--- NOTE | 2019-10-24 22:08 | PROVIDER PROGRESS NOTE ---
Progress Note examined full note to follow
[2019-10-25] MEDS ORDERED: HALDOL IM ONE (00:44)
[2019-10-25] MEDS ORDERED: OFIRMEV 1000 MG/ISOTONIC SOLN 1,000 MG/100 ML BOTTLE IV ONE (00:45)
[2019-10-25] MEDS: MERREM 2 GM in NS 100 ML IV SCH ×3 (03:13→19:07)
[2019-10-25] MEDS ORDERED: MORPHINE IV ONE (05:02)
[2019-10-25] MEDS: DUONEB (A & A) INH SCH ×2 (05:37→08:01)
[2019-10-25] MEDS: PRILOSEC PO SCH (06:12)
[2019-10-25 07:30] LABS: BASO# 0.05 X1000 (0.0-0.2); BASO% 0.3 % (0.0-0.8); EOS# 0.01 X1000 (0.0-0.7); EOS% 0.1 % (0.0-10.0); HEMATOCRIT 41.3 % (42.0-52.0); HEMOGLOBIN 13.2 g/dL (14.0-18.0); IMM GRAN# 0.31 X1000 (0.0-0.04); IMM GRAN% 1.6 % (0.0-0.5); LYMPH# 0.52 X1000 (1.2-3.4); LYMPH% 2.8 % (20.5-51.1); MCV 96.9 FL (81-99); MONO# 1.94 X1000 (0.11-0.59); MONO% 10.3 % (1.7-9.3); MPV 10.9 FL (7.4-10.4); NEUT# 15.97 X1000 (1.4-6.5); NEUT% 84.9 % (42.2-75.2); PLT 155 X1000 (130-400); RBC 4.26 XMIL (4.7-6.1); RDW 17.8 % (11.5-14.5)
[2019-10-25] MEDS: NS IV SCH ×2 (07:39→20:05)
[2019-10-25] MEDS: COLISTIN IV SCH ×2 (07:39→20:05)
[2019-10-25 07:47] LABS: AGAP 8; BUN 35 mg/dL (8-22); CALCIUM 8.3 mg/dL (8.8-10.2); CHLORIDE 97 mmol/L (98-107); COSMO 282; CREATININE 0.7 mg/dL (0.7-1.2); ESTIMATED GFR > 60; GLUCOSE 140 mg/dL (70-104); POTASSIUM 4.6 mmol/L (3.5-5.1); SODIUM 136 mmol/L (136-145); TCO2 31 mmol/L (25-35)
[2019-10-25] MEDS: MUCOMYST 20% INH SCH ×2 (08:01→19:30)
[2019-10-25] MEDS: ADVAIR 100/50 DISKUS INH SCH ×2 (08:01→19:30)
[2019-10-25 08:12] LABS: LYMPHS 6 % (21-51); MONO 6 % (1-9); SEGS 88 % (42-75)
[2019-10-25] MEDS: ERYTHROMYCIN 250 MG in NS 150 ML IV SCH ×3 (08:39→16:41)
[2019-10-25] MEDS: SOLU-MEDROL IV SCH (08:40)
[2019-10-25] MEDS ORDERED: ATIVAN IV ONE (09:07)
[2019-10-25] MEDS ORDERED: LASIX IV ONE ×2 (09:18→16:16)
[2019-10-25] MEDS: DULCOLAX PR SCH ×2 (09:20→20:05)
[2019-10-25] MEDS: LACTULOSE PO SCH ×2 (09:20→21:40)
[2019-10-25] MEDS: MIRALAX PO SCH (09:21)
[2019-10-25] MEDS: SINGULAIR PO SCH (09:21)
[2019-10-25] MEDS: SENOKOT PO SCH ×2 (09:21→21:41)
[2019-10-25] MEDS: LASIX PO SCH (09:21)
[2019-10-25] MEDS ORDERED: NS NEB INH SCH (09:30)
[2019-10-25 09:42] LABS: INR 1.34; PROTIME 16.8 Seconds (11.0-16.0)
[2019-10-25 09:56] LABS: ALLEN TEST YES; BE 6.4 mmoll (-3.0-3.0); BLOOD TYPE ARTERIAL; HCO3-(ACT) 29.6 mmoll (20.0-26.0); METHB 1.3 % (0.0-1.5); O2(CT) 16.1 mL/dL (15.0-23.0); PCO2(98.6) 48 mmHg (35-45); SAMPLE BLOOD; SAO2 87.9 % (95.0-100.0); THB 13.6 g/dL (11.5-17.4); pH(98.6) 7.43 (7.35-7.45)
[2019-10-25 09:57] LABS: MODALITY CANNULA; O2HB 84.2 % (95.0-99.0); PO2(98.6) 48 mmHg (60-100)
[2019-10-25 10:00] LABS: PTT 35.1 Seconds (22.3-41.8)
--- NOTE | 2019-10-25 11:52 | Diag Imaging Result Doc PS360 ---
EXAM: CHEST-1 VIEW 10/25/2019 HISTORY: pneumonia TECHNIQUE: AP portable erect at 1125 COMMENT: There are dense alveolar opacities bilaterally in both upper and lower lobes. This has not changed appreciably since 10/24/2019. IMPRESSION: Pneumonia plus minus pulmonary edema, stable. Electronically signed by Neil Miranda 10/25/2019 11:49 AM
--- NOTE | 2019-10-25 11:57 | Diag Imaging Result Doc PS360 ---
EXAM: ABDOMEN FLAT/UPRIGHT 10/25/2019 HISTORY: constipation TECHNIQUE: Flat and upright abdomen COMMENT: There is a fairly large amount of stool present in the colon particularly the ascending colon. There is gas in the rectum. There is no evidence of gastric or small bowel dilatation. No evidence organomegaly or mass is present. There is severe degenerative change in the right hip. There is scoliosis of the lumbar spine with convexity to the left. IMPRESSION: Constipation. Electronically signed by Neil Miranda 10/25/2019 11:55 AM
[2019-10-25] MEDS: XOPENEX NEB INH SCH ×4 (12:08→23:18)
[2019-10-25] MEDS ORDERED: NS 250 ML ONE (13:56)
[2019-10-25] MEDS ORDERED: SODIUM CHLORIDE 0.9% INJ SCH (16:30)
[2019-10-25] MEDS: CUBICIN 600 MG in NS 100 ML IV SCH (16:30)
[2019-10-25 17:32] LABS: AGAP 6; BUN 34 mg/dL (8-22); CALCIUM 8.5 mg/dL (8.8-10.2); CHLORIDE 95 mmol/L (98-107); COSMO 284; CREATININE 0.7 mg/dL (0.7-1.2); ESTIMATED GFR > 60; GLUCOSE 182 mg/dL (70-104); POTASSIUM 4.4 mmol/L (3.5-5.1); SODIUM 136 mmol/L (136-145); TCO2 35 mmol/L (25-35)
--- NOTE | 2019-10-25 18:41 | PROVIDER PROGRESS NOTE ---
Progress Note Progress Note Dr. Almendarez Progress Note/Pulmonary and or critical care We appreciated progress of care, Complications, change in diagnosis, and in structions to patient. Subjective: We note the level of consciousness, bed (chair) position, family presence (if any), level of lethargy, feeling of symptoms, and changes from baseline condition/symptom. Patient lying in bed. Objective: Vital Signs: We reviewed EMR current values for Pulse rate, Blood pressure, Pulse rate, respiratory rate and Pulse oximetry. Also noted other values and trends if present (e.g. I/O, CVP). T 98.0 , IN 110 , RR 20 , BP 136/75 , and SaO2 100 % VM Physical Examination: General: This is a chronically ill-appearing elderly male lying in bed in no acute distress. Heart: S1, S2 normal. Regular rate and rhythm. Lungs: Coarse breath sounds bilaterally with rhonchi. Abdomen: Positive bowel sounds. Soft. Extremities: The patient has multiple skin tears on his legs. No edema noted. Neurologic: The patient is alert but has periods of confusion at times. Management, face to face evaluation by Dr. Almendarez. SASHA Ramsay did scribing only. Laboratory Results 10/25/19 10/25/19 10/25/19 06:33 06:33 06:33 WBC 18.80 H RBC 4.26 L Hgb 13.2 L Hct 41.3 L MCV 96.9 MCH 31.0 MCHC 32.0 L RDW Std Deviation 17.8 H Plt Count 155 MPV 10.9 H Immature Gran % (Auto) 1.6 H Neut % (Auto) 84.9 H Lymph % (Auto) 2.8 L Sawyer % (Auto) 10.3 H Eos % (Auto) 0.1 Baso % (Auto) 0.3 Immature Gran # (Auto) 0.31 H Neut # (Auto) 15.97 H Lymph # (Auto) 0.52 L Sawyer # (Auto) 1.94 H Eos # (Auto) 0.01 Baso # (Auto) 0.05 Segmented Neutrophils 88 H Lymphocytes 6 L Monocytes 6 PT 16.8 H INR 1.34 PTT (Actin FS) 35.1 Specimen Type Sample Site pH pCO2 pO2 HCO3 Base Excess Oxyhemoglobin ABG O2 Sat (Calculated) ABG O2 Saturation ABG Carboxyhemoglobin ABG Methemoglobin Hayden Test A-a O2 Difference Total Hemoglobin Lactate Liter Flow Blood Gas Modality FiO2 % Sodium 136 Potassium 4.6 Chloride 97 L Carbon Dioxide 31 Anion Gap 8 BUN 35 H Creatinine 0.7 Estimated GFR/1.73 m2 > 60 BUN/Creatinine Ratio 50 Glucose 140 H Calculated Osmolality 282 Calcium 8.3 L Orw-F-Cdfwzrdhehr Pept 10/25/19 10/25/19 10/25/19 06:33 09:46 16:57 WBC RBC Hgb Hct MCV MCH MCHC RDW Std Deviation Plt Count MPV Immature Gran % (Auto) Neut % (Auto) Lymph % (Auto) Sawyer % (Auto) Eos % (Auto) Baso % (Auto) Immature Gran # (Auto) Neut # (Auto) Lymph # (Auto) Sawyer # (Auto) Eos # (Auto) Baso # (Auto) Segmented Neutrophils Lymphocytes Monocytes PT INR PTT (Actin FS) Specimen Type ARTERIAL Sample Site R RADIAL pH 7.43 pCO2 48 H pO2 48 L* HCO3 29.6 H Base Excess 6.4 H Oxyhemoglobin 84.2 L* ABG O2 Sat (Calculated) 16.1 ABG O2 Saturation 87.9 L ABG Carboxyhemoglobin 2.90 H ABG Methemoglobin 1.3 Hayden Test YES A-a O2 Difference 177.0 Total Hemoglobin 13.6 Lactate 3.40 H Liter Flow 5.0 Blood Gas Modality CANNULA FiO2 % 40.0 Sodium 136 Potassium 4.4 Chloride 95 L Carbon Dioxide 35 Anion Gap 6 BUN 34 H Creatinine 0.7 Estimated GFR/1.73 m2 > 60 BUN/Creatinine Ratio 49 Glucose 182 H Calculated Osmolality 284 Calcium 8.5 L Pxw-W-Lwflqnenbbd Pept 1333 H ASSESSMENT AND PLAN: 1. Sepsis and acute encephalopathy due to right upper lobe pneumonia, acute cystitis without hematuria associated with intermittent self catheterization and Pseudomonas infection, methicillin-resistant Staphylococcus aureus (MRSA) bacteremia. Continue antibiotics as prescribed 2. Bilateral lower extremity edema with elevated proBNP, likely in the setting of heart failure with preserved ejection fraction with mild exacerbation. Continue diuretics as needed. 3. Suspected atrial fibrillation with controlled ventricular response versus normal sinus rhythm with premature atrial contraction. Will monitor. 4. Acute kidney injury in the setting of sepsis, now improving. Continue Giang catheter for close input and output monitoring. 5. History of chronic obstructive pulmonary disease with mild acute exacerbation. Continue inhaled bronchodilators, intravenous steroids. He does have history of pulmonary fibrosis. I Time spent- 35 min
[2019-10-25] MEDS: CARDIZEM 100 MG/NS 100 MG/100 ML IVPB IV SCH (19:08)
[2019-10-25] MEDS: LOVENOX SUBQ SCH (20:05)
--- NOTE | 2019-10-25 21:12 | INFECTIOUS DISEASE PROGRESS NO ---
DATE: 10/25/2019 PRESENT ILLNESS: The patient has a methicillin-resistant Staph aureus bacteremia, a Pseudomonas urinary tract infection, and a multidrug resistant Pseudomonas pneumonia. MEDICATIONS: This patient has been on daptomycin for 7 days with day 1 being the first day that the patient's blood cultures were negative. He has been on meropenem 6 days and most recently he has been on Cholestin for 1 day. PHYSICAL EXAMINATION: Vital Signs: Temperature is 98.5 degrees, pulse 89, respirations 20, blood pressure 130/70. General: This is a chronically ill-appearing elderly male. He has a decreased level of consciousness. He does not appear to be in any acute distress. Head, eyes, ears, nose and throat: There is no drainage from the nose or ears. Neck: No stiffness. Lungs: Bilateral rhonchi. Cardiovascular: Heart rate is irregular. Abdomen: Soft and not tender. Thorax: The patient's Port-A-Cath site on the right side has a dressing on it. The dressing is intact. Neurologic: The patient has a decreased level of consciousness. He did not respond to verbal stimuli. There is no tremor. LAB AND X-RAY: CBC today shows a white blood cell count of 18,800, hemoglobin 13.2 and platelet count 155,000. The patient's last CK was 52. Blood gases show a pH of 7.43, a PO2 of 48 and a pCO2 of 48. Creatinine is 0.7. GFR is greater than 60. Both IgA and IgG G are elevated with IgA is 654 and IgG is 3117. The patient's sputum as mentioned above is growing multiply drug- resistant Pseudomonas. Urine is growing a Pseudomonas that is more susceptible to antibiotics. Chest x-ray shows stable bilateral opacities. ASSESSMENT AND PLAN: The patient has a multidrug resistant Pseudomonas pneumonia. For this he is being treated with colistin. The patient's organism has been sent off to do susceptibility testing to colistin, some of the newer beta-lactam antibiotics that can treat very resistant Pseudomonas organisms. Plan to continue with the current antibiotics, namely colistin, daptomycin and meropenem. A CK level for tomorrow has been ordered. I talked with the patient's son about his father's outlook and the son said that he is going to discuss it with family members and most likely will make his father a DNR. COMORBIDITIES: The patient is elderly and he has chronic obstructive pulmonary disease, aortic stenosis, urothelial cancer, and he also aspirates. cc: Negro Luna MD
[2019-10-26] MEDS ORDERED: HALDOL IM ONE (00:51)
[2019-10-26] MEDS: MERREM 2 GM in NS 100 ML IV SCH ×3 (02:39→19:54)
--- NOTE | 2019-10-26 04:31 | CONSULTATION ---
DATE OF CONSULTATION: 10/24/2019 CHIEF COMPLAINT: Shortness of breath. HISTORY OF PRESENT ILLNESS: This is an 84-year-old male who has recently had a hospital admission last month with a diagnosis of Enterococcus urinary tract infection, sepsis, encephalopathy, severe aortic stenosis and mild COPD exacerbation. He has a past medical history of atrial fibrillation, congestive heart failure, seasonal allergies. Recent chest CT revealed worsened pneumonia, right pleural effusion, retained gastric contents, and constipation with the possibility of aspiration pneumonia which could not be excluded. PAST MEDICAL HISTORY: 1. COPD. 2. Seasonal allergies. 3. GERD. 4. Arthritis. 5. Bladder cancer with tumor removal and self-catheterization. 6. Chronic, frequent urinary tract infections. 7. Atrial fibrillation. 8. Congestive heart failure with severe aortic stenosis. SURGICAL HISTORY: 1. Bladder tumor removal. 2. Right port placement. 3. Bilateral cataract surgeries. SOCIAL HISTORY: He was a 9-[id number]-day smoker for 30 years; quit in 1974. No alcohol or illicit drug use. He has currently been in [facility]. He uses a walker for ambulation. FAMILY HISTORY: Unknown. ALLERGIES: Codeine. HOME MEDICATIONS: Please see home reconciliation list. REVIEW OF SYSTEMS: A 10-point review of systems was obtained and pertinent as listed within the HPI; otherwise noncontributory. PHYSICAL EXAMINATION: VITAL SIGNS: Temperature 98.1 degrees; pulse rate 91, respiratory rate 19, blood pressure 101/60, oxygen saturation 96% with O2 at 2 liters per nasal cannula. GENERAL: This is an 84-year-old male in no acute distress at the present time. HEENT: Head is atraumatic, normocephalic. Pupils equal, round and reactive to light. Mucous membranes are dry. NECK: Trachea is midline. Neck supple. CARDIOVASCULAR: S1, S2. Regular rate and rhythm. No rubs, gallops. He does have a systolic murmur. PULMONARY: Wheezing harsh throughout. Decreased entry. Nonlabored breathing. GI: Soft, nontender, nondistended. Positive bowel sounds in all 4 quadrants. EXTREMITIES: With edema. The patient has skin tears that appear to be healing on both legs. NEUROLOGICAL: The patient is alert and oriented to person, place and time. LABORATORY DATA: White blood cells 16.85, red blood cells 4.39, hemoglobin 13.6, hematocrit 42.7. Blood gases: pH of 7.46, pCO2 of 47, PO2 66, HCO3 of 31.3, oxyhemoglobin 92.5. Sodium 137, chloride 97, potassium 4.7, carbon dioxide 23, BUN 27, creatinine 0.7, glucose 138, calcium 8.6. Total protein 7.5. DIAGNOSTIC DATA: Chest CT scan as mentioned in HPI. Recent abdominal x-ray revealed prominent constipation. Head CT scan revealed no evidence of acute disease. ASSESSMENT AND PLAN: 1. Bilateral pneumonia. Aspiration pneumonia cannot be excluded. Chest CT revealed retained gastric contents. 2. Right pleural effusion. 3. Congestive heart failure. He is on Lasix 40 mg p.o. daily. 4. Atrial fibrillation. Aware. 5. Neurogenic bladder. Aware. 6. Urinary tract infection. Continue antibiotics as prescribed. Management, sbef-bu-brue evaluation by Dr. Almendarez. SASHA Ramsay, did scribing only. Time spent 36 minutes. Thank you for the courtesy of this consult. Dictated by SASHA Ramsay for Angelina Almendarez MD cc: SASHA Ramsay MD
--- NOTE | 2019-10-26 04:44 | PROGRESS NOTE ---
DATE: 10/25/2019 SUBJECTIVE: The patient was noted to be very agitated and confused this morning. An ABG was done that revealed that the patient was hypoxic on nasal cannula. His oxygen was increased. OBJECTIVE: Vital Signs: Temperature 98 degrees, blood pressure 136/75, heart rate 110, respirations 25, and O2 saturations 100% on the Venturi mask. Intake 1.7 L and output 1.5 L. General: This is a chronically ill-appearing elderly male currently resting comfortably in bed. Heart: S1, S2. Irregularly irregular rhythm. Lungs: Coarse breath sounds with crackles. Abdomen: Positive bowel sounds. Soft, nontender, and nondistended. Extremities: Trace pedal edema in the lower extremities. Neurologic: The patient is awake, but confused. He is able to move all 4 extremities. LABORATORY: White blood cell count 18, hemoglobin 13, hematocrit 41, and platelets 155,000. INR 1.34. Sodium 136, potassium 4.4, chloride 95, CO2 35, BUN 34, creatinine 0.7 and glucose 182. Chest x-ray shows pneumonia plus or minus pulmonary edema. Abdominal x-ray shows constipation. ASSESSMENT AND PLAN: 1. Acute hypoxemic respiratory failure likely secondary to pneumonia and pulmonary edema. 2. Worsening bilateral lobe pneumonia. The patient's antibiotics were adjusted on Saturday. We will continue on the current antibiotic regimen as directed by Dr. Luna. 3. Sepsis secondary to pneumonia. Continue on antibiotic therapy as ordered. 4. Acute pulmonary edema. We will treat the patient with diuretic therapy. 5. Atrial fibrillation. Will start a cardizem drip. 6. Bacteremia secondary to methicillin-resistant Staphylococcus aureus. Continue on daptomycin. 7. Status post removal of infected Port-A-Cath. Aware. 8. Metabolic encephalopathy likely secondary to the underlying infections that are being treated. Continue to monitor closely for improvement. 9. Constipation. Continue with scheduled laxative therapy. 10. 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 Aware. 11. Pulmonary fibrosis. Aware. 12. Deep vein thrombosis prophylaxis. Continue on Lovenox. 13. Disposition. The patient is critically ill with a high risk of mortality. After discussion with the patient's son, the patient was made a DNR level 2. Palliative care has been consulted for assistance with goals of care. cc: Kena Kelsey MD MTDD
[2019-10-26 05:31] LABS: ALLEN TEST YES; BE 6.8 mmoll (-3.0-3.0); BLOOD TYPE ARTERIAL; HCO3-(ACT) 30.1 mmoll (20.0-26.0); METHB 1.1 % (0.0-1.5); O2(CT) 18.8 mL/dL (15.0-23.0); O2HB 93.5 % (95.0-99.0); PCO2(98.6) 43 mmHg (35-45); PO2(98.6) 70 mmHg (60-100); SAMPLE BLOOD; SAO2 96.7 % (95.0-100.0); THB 14.3 g/dL (11.5-17.4); pH(98.6) 7.47 (7.35-7.45)
[2019-10-26 05:32] LABS: MODALITY VENTIMASK
[2019-10-26 05:56] LABS: AGAP 13; BUN 41 mg/dL (8-22); CALCIUM 8.5 mg/dL (8.8-10.2); CHLORIDE 96 mmol/L (98-107); COSMO 292; CREATININE 0.9 mg/dL (0.7-1.2); ESTIMATED GFR > 60; GLUCOSE 151 mg/dL (70-104); POTASSIUM 4.2 mmol/L (3.5-5.1); SODIUM 140 mmol/L (136-145); TCO2 31 mmol/L (25-35)
[2019-10-26 06:08] LABS: BASO# 0.07 X1000 (0.0-0.2); BASO% 0.4 % (0.0-0.8); EOS# 0.01 X1000 (0.0-0.7); EOS% 0.1 % (0.0-10.0); HEMATOCRIT 43.5 % (42.0-52.0); IMM GRAN# 0.39 X1000 (0.0-0.04); IMM GRAN% 2.1 % (0.0-0.5); LYMPH# 0.33 X1000 (1.2-3.4); LYMPH% 1.8 % (20.5-51.1); MCHC 32.2 g/dL (33-37); MCV 96.5 FL (81-99); MONO# 1.25 X1000 (0.11-0.59); MONO% 6.8 % (1.7-9.3); MPV 10.8 FL (7.4-10.4); NEUT# 16.34 X1000 (1.4-6.5); NEUT% 88.8 % (42.2-75.2); PLT 142 X1000 (130-400); RBC 4.51 XMIL (4.7-6.1); RDW 17.9 % (11.5-14.5); WBC 18.39 X1000 (4.8-10.8)
[2019-10-26] MEDS: CARDIZEM 100 MG/NS 100 MG/100 ML IVPB IV SCH (06:12)
[2019-10-26] MEDS: PROTONIX IV SCH (06:13)
[2019-10-26 06:24] LABS: HEMOGLOBIN A1C 6.5 % (4.8-6.0)
[2019-10-26] MEDS: LOVENOX SUBQ SCH ×3 (06:24→18:33)
--- NOTE | 2019-10-26 07:42 | Diag Imaging Result Doc PS360 ---
EXAM: CHEST-PORTABLE INDICATION: dyspnea TECHNIQUE: One view COMPARISON: 10/25/2019 FINDINGS: There has been interval placement of a right PICC line. The tip projects over the lower SVC in the expected position. Extensive patchy airspace infiltrates bilaterally with a basilar predominance is approximately stable. No new consolidation is identified. Cardiac silhouette is stable. IMPRESSION: Essentially stable chest. Electronically signed by Aung Kay 10/26/2019 7:40 AM
[2019-10-26] MEDS: ADVAIR 100/50 DISKUS INH SCH ×2 (07:52→20:15)
[2019-10-26] MEDS: XOPENEX NEB INH SCH ×5 (07:52→23:15)
[2019-10-26] MEDS: MUCOMYST 20% INH SCH ×2 (07:52→20:15)
[2019-10-26] MEDS ORDERED: ATIVAN IV PRN (08:37)
[2019-10-26] MEDS ORDERED: MORPHINE IV PRN (08:38)
[2019-10-26] MEDS: NS IV SCH ×2 (09:12→22:27)
[2019-10-26] MEDS: COLISTIN IV SCH ×2 (09:12→22:27)
[2019-10-26] MEDS: LACTULOSE PO SCH ×2 (09:24→21:36)
[2019-10-26] MEDS: DULCOLAX PR SCH ×2 (09:24→21:30)
[2019-10-26] MEDS: MIRALAX PO SCH (09:25)
[2019-10-26] MEDS: SINGULAIR PO SCH (09:25)
[2019-10-26] MEDS: SENOKOT PO SCH ×2 (09:25→21:37)
[2019-10-26 10:22] LABS: URINE SOURCE CATH
[2019-10-26 10:26] LABS: BILIRUBIN URINE NEGATIVE (NEGATIVE); BLOOD URINE MODERATE (NEGATIVE); COLOR ORANGE; GLUCOSE URINE NEGATIVE (NEGATIVE); KETONE URINE TRACE mg/dL (NEGATIVE); LEUKOCYTES URINE SMALL (NEGATIVE); NITRITE URINE NEGATIVE (NEGATIVE); PH URINE 6.5; PROTEIN URINE >600 mg/dL (NEGATIVE); SP GRAVITY URINE 1.022; TURBIDITY URINE TURBID (CLEAR); UROBILINOGEN URINE 8 mg/dL (NORMAL)
[2019-10-26 10:30] LABS: UR EPITHELIAL CELLS >10 /HPF (<10); URINE BACTERIA NEGATIVE /HPF; URINE RBC TNTC /HPF (<10); URINE WBC TNTC /HPF (<10)
--- NOTE | 2019-10-26 10:41 | PROGRESS NOTE ---
DATE: 10/26/2019 SUBJECTIVE: The patient was noted to be agitated all night, and moaning. He is confused. OBJECTIVE: Vital Signs: Temperature 97.4 degrees, blood pressure 126/53, heart rate 104, respirations 26, O2 saturation is 99% on Venturi mask. Intake 610, output 3.3 L. General: This is a chronically ill-appearing, elderly male, lying comfortably in bed in no acute distress. HEENT: PERRLA. EOMI. Heart: S1, S2 normal. Irregularly irregular rhythm. Lungs: Coarse breath sounds bilaterally with crackles. Abdomen: Positive bowel sounds. Soft, nontender, nondistended. Extremities: The patient has multiple skin tears on the legs. Trace pedal edema. Extremities are warm to touch. Neurologic: The patient is awake, but oriented to self only. He is able to move all 4 extremities. IMAGING AND LABORATORY DATA: White blood cell count 18, hemoglobin 14, hematocrit 43, platelets 142,000. ABG: PH 7.47, pCO2 of 43, PO2 of 70, bicarb 30. Lactate 5. Sodium 140, potassium 4.2, chloride 96, CO2 of 31, BUN 41, creatinine 0.9, glucose 151. Hemoglobin A1c 6.5. ProBNP 2747. Chest x-ray shows patchy bilateral infiltrates. ASSESSMENT AND PLAN: 1. Acute hypoxemic respiratory failure, likely secondary to a combination of pneumonia and pulmonary edema. Continue on the current treatment regimen. 2. Worsening bilateral lobe pneumonia secondary to Pseudomonas aeruginosa. The patient is currently on broad-spectrum antibiotics as directed by Dr. Luna. Will continue to monitor the patient closely for improvement. 3. Septic shock secondary to severe pneumonia. Merlin-synephrine has been started. Will also start IV fluids. Continue on broad spectrum antibiotics as directed by . 4. Atrial fibrillation. Continue on the Cardizem drip. Will try to transition to oral medication once the patient has been cleared after undergoing the swallow evaluation. The patient is on full-dose Lovenox. 5. Bacteremia secondary to methicillin-resistant Staphylococcus aureus. Continue on daptomycin. 6. Status post removal of an infected Port-A-Cath. Aware. 7. Metabolic encephalopathy, likely secondary to the underlying infections. Continue to monitor for improvement. 8. Constipation. Continue with Dulcolax suppositories. 9. 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 Aware. 10. Severe aortic stenosis. Aware. 11. Pulmonary fibrosis. Aware. 12. Diabetes mellitus type 2. Will cover with sliding scale insulin. 13. Deep vein thrombosis prophylaxis. Continue on Lovenox. 14. Disposition. The patient is critically ill with a high risk of mortality. The patient is currently a DNR level 2. Palliative Care is following for assistance with goals of care. cc: Kena Kelsey MD MTDD
[2019-10-26 10:52] LABS: URINE CASTS NONE SEEN; URINE CRYSTALS NONE SEEN; URINE SMALL ROUND CELLS NONE SEEN; URINE YEAST PRESENT
--- NOTE | 2019-10-26 12:26 | INFECTIOUS DISEASE PROGRESS NO ---
DATE: 10/26/2019 PRESENT ILLNESS: The patient has a methicillin-resistant Staphylococcus aureus bacteremia, a Pseudomonas urinary tract infection, and multidrug-resistant Pseudomonas pneumonia. MEDICATIONS: The patient has been on daptomycin for 8 days and 7 days on meropenem and 2 days for colistin. PHYSICAL EXAMINATION: Vital Signs: Temperature is 97.4 degrees, pulse 104, respirations 26, blood pressure is 126/53. General: This is a chronically ill-appearing elderly male. He seems to be in a delirium. Head/Eyes/Ears/Nose/Throat: No drainage noted from the nose or ears. There are no white patches in his mouth. Neck: No stiffness. Lungs: Bilateral rhonchi. Cardiovascular: Heart rate is irregular. Abdomen: Soft and nontender. Thorax: The site where the patient's Port-A-Cath was removed is not erythematous or draining pus. Neurologic: The patient seems delirious. He does not respond to verbal stimuli. There is no tremor. LAB AND X-RAY: The patient's chest x-ray shows extensive patchy airspace infiltrates bilaterally. There is no new consolidation. CBC shows a white count of 18,390, hemoglobin 14, platelet count 142,000. Blood gases show a pH of 7.47, a PO2 of 70, pCO2 of 43. Creatinine is 0.9, GFR is greater than 60. The patient's chest x-ray shows extensive patchy airspace infiltrates bilaterally. ASSESSMENT AND PLAN: The patient has multidrug resistant Pseudomonas pneumonia, for which the patient is being treated with colistin and meropenem. The patient has a Pseudomonas urinary tract infection, which is being treated by those 2 antibiotics, and finally, the patient has a methicillin-resistant Staphylococcus aureus. The patient is on daptomycin. My plan is to continue colistin, daptomycin, and meropenem. I am going to also order a CK level. COMORBIDITIES: The patient is elderly, and he has chronic obstructive pulmonary disease, aortic stenosis, urothelial cancer, and he also has aspiration. cc: Negro Luna MD
[2019-10-26] MEDS ORDERED: HALDOL IV PRN (12:53)
[2019-10-26] MEDS ORDERED: CLINIMIX E 4.25%-5% SOLUTION 1,000 ML IV SCH (13:15)
--- NOTE | 2019-10-26 13:46 | HEMO/ONC PROGRESS NOTE ---
DATE: 10/26/2019 SUBJECTIVE: Mr. Morillo is now in the ICU. Apparently over the weekend the patient became significantly more confused. He became agitated, ripping off his lines, IV and oxygen, and yelling. The patient was difficult to console. He was placed in restraints and moved to the ICU. The patient continues to remain confused. He is in restraints. He is trying to shake off his oxygen. His confusion has not improved much this morning. OBJECTIVE: Vital Signs: Temperature 97.4 degrees, pulse rate 104, respiratory rate 26, blood pressure 126/53, O2 saturation 99% on Venturi mask at 50%. He is in 0/10 pain. General: On physical examination, the patient is sitting comfortably in bed in no acute distress, although he is obviously agitated. HEENT: PERRLA. Sclerae anicteric. Cardiovascular: Normal S1, S2. Irregularly irregular rhythm. Respiratory: Coarse breath sounds bilaterally with crackles. Gastrointestinal: Abdomen is soft, nontender, nondistended. Extremities: The patient has multiple skin tears on his legs. Trace pedal edema. Neurological: The patient is only oriented to self. LABORATORY: WBCs 18.39, hemoglobin 14, hematocrit 43.5, platelet count 142,000. Creatinine 0.9, calcium 8.5. ProBNP 2747. RADIOLOGY: Extensive patchy airspace infiltrates bilaterally with basilar predominance is approximately stable. No new consolidation is identified. ASSESSMENT AND PLAN: 1. 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 The patient's treatment remains on hold. He has received 03/10 radiation treatments. Not much to add from oncology standpoint. His bigger ssue seems to be recurrent UTI's, now port infection. 2. Acute hypoxemic respiratory failure, likely secondary to a combination of pneumonia and pulmonary edema. Continue treatment per medical management. Worsening bilateral lobe pneumonia secondary to Pseudomonas aeruginosa. Continue patient on broad- spectrum antibiotics per Dr. Luna. 3. Bacteremia secondary to methicillin-resistant Staphylococcus aureus. Continue antibiotics per Dr. Luna and medical management. 4. Port-A-Cath. The patient's Port-A-Cath is removed as a source of infection. 5. Metabolic encephalopathy, likely secondary to underlying infection. Patient has become confused again. Continue to monitor him as necessary and will keep him in restraints only as necessary. 6. Deep vein thrombosis prophylaxis. Continue the patient on Lovenox. Dictated by SASHA Santiago for Moustapha Zhu MD cc: Moustapha Zhu MD [facility]
[2019-10-26] MEDS: NEO-SYNEPHRINE 50 MG in NS 250 ML IV SCH ×3 (14:09→22:27)
[2019-10-26] MEDS: CUBICIN 600 MG in NS 100 ML IV SCH (16:29)
[2019-10-26] MEDS: HUMULIN R SUBQ SCH ×2 (16:30→21:36)
[2019-10-26] MEDS ORDERED: NS 250 ML IV ONE (17:56)
[2019-10-26] MEDS ORDERED: NS 250 ML ONE (18:01)
[2019-10-26 18:08] LABS: ALLEN TEST YES; BE -6.2 mmoll (-3.0-3.0); BLOOD TYPE ARTERIAL; METHB 0.9 % (0.0-1.5); O2(CT) 19.2 mL/dL (15.0-23.0); O2HB 93.4 % (95.0-99.0); PCO2(98.6) 42 mmHg (35-45); PO2(98.6) 74 mmHg (60-100); SAMPLE BLOOD; SAO2 95.9 % (95.0-100.0); THB 14.6 g/dL (11.5-17.4); pH(98.6) 7.29 (7.35-7.45)
[2019-10-26 18:10] LABS: MODALITY BI PAP
[2019-10-26] MEDS ORDERED: NS 1,000 ML IV ONE (18:18)
[2019-10-26] MEDS ORDERED: NS 2,000 ML ONE (18:23)
[2019-10-26] MEDS: NS 1,000 ML IV SCH (18:35)
--- NOTE | 2019-10-26 18:42 | Diag Imaging Result Doc PS360 ---
CHEST-PORTABLE - 10/26/2019 6:05 PM INDICATION: resp distress COMPARISON: 5:16 AM FINDINGS: Stable right PICC line in good position. Stable extensive bilateral infiltrates. Heart size is grossly normal. IMPRESSION: No change from prior. Electronically signed by Ilan Leon 10/26/2019 6:39 PM
--- NOTE | 2019-10-26 19:01 | PROVIDER PROGRESS NOTE ---
Progress Note Dr. Almendarez Progress Note/Pulmonary and or critical care We appreciated progress of care, Complications, change in diagnosis, and instructions to patient. Subjective: We note the level of consciousness, bed (chair) position, family presence (if any), level of lethargy, feeling of symptoms, and changes from baseline condition/symptom. The patient is lying in bed with moderate respiratory distress noted. He is on VM 50% with increased work of breathing. He is on two point restraint at this t ceferino. He apparently had a rough night last night with agitation and confusion. Patients son at the bedside. Objective: Vital Signs: We reviewed EMR current values for Pulse rate, Blood pressure, Pulse rate, respiratory rate and Pulse oximetry. Also noted other values and trends if present (e.g. I/O, CVP). T 98.1 (no fever in last 24 hours), NC 92, RR 31, BP 84/62 and SaO2 93% on VM 50%. I/O -2690 ml Physical Examination: General: Chronically ill-appearing. Lying in bed with no acute distress noted. HEENT: Normocephalic. Trachea midline. Mucosa pink and moist. Chest: Tachypnea with increased work of breathing, but no accessory muscle use noted. Symmetrical excursion. Scattered rhonchi with crackles bilaterally. CVS: Irregularly irregular. S1 and S2 appreciated. Abdomen: Soft. Nondistended. Normoactive bowel sounds in all 4 quadrants noted. Extremities: Trace pedal edema. No cyanosis. No clubbing. Multiple skin tears on BLE. Neuro: Lethargic. Not answering questions or following simple commands. Labs and Radiology: Reviewed available labs and radiology values available at time of EMR review. Laboratory Results 10/26/19 10/26/19 10/26/19 04:45 05:09 05:09 WBC 18.39 H RBC 4.51 L Hgb 14.0 Hct 43.5 MCV 96.5 MCH 31.0 MCHC 32.2 L RDW Std Deviation 17.9 H Plt Count 142 MPV 10.8 H Immature Gran % (Auto) 2.1 H Neut % (Auto) 88.8 H Lymph % (Auto) 1.8 L [place] % (Auto) 6.8 Eos % (Auto) 0.1 Baso % (Auto) 0.4 Immature Gran # (Auto) 0.39 H Neut # (Auto) 16.34 H Lymph # (Auto) 0.33 L [place] # (Auto) 1.25 H Eos # (Auto) 0.01 Baso # (Auto) 0.07 Specimen Type ARTERIAL Sample Site R RADIAL pH 7.47 H pCO2 43 pO2 70 HCO3 30.1 H Base Excess 6.8 H Oxyhemoglobin 93.5 L ABG O2 Sat (Calculated) 18.8 ABG O2 Saturation 96.7 ABG Carboxyhemoglobin 2.20 ABG Methemoglobin 1.1 Hayden Test YES A-a O2 Difference 233.0 Total Hemoglobin 14.3 Lactate 5.00 H* Liter Flow 15.0 Blood Gas Modality VENTIMASK FiO2 % 50.0 Inspiratory BiPAP Expiratory BiPAP Sodium 140 Potassium 4.2 Chloride 96 L Carbon Dioxide 31 Anion Gap 13 BUN 41 H Creatinine 0.9 Estimated GFR/1.73 m2 > 60 BUN/Creatinine Ratio 46 Glucose 151 H POC Glucose Estimat Average Glucose Hemoglobin A1c Calculated Osmolality 292 Calcium 8.5 L Sql-B-Cnsqnfrccob Pept Urine Source Urine Color Urine Turbidity Urine pH Ur Specific [place] Urine Protein Ur Glucose (Stick) Ur Ketones (Stick) Urine Blood Urine Nitrite Urine Bilirubin Urobilinogen Dipstick Urine Leukocytes Urine WBC (Auto) Urine RBC (Auto) U Epithel Cells (Auto) Urine Bacteria (Auto) Urine Crystals Small Round Cells Urine Casts Urine Yeast-like Cells 10/26/19 10/26/19 10/26/19 05:09 05:09 10:00 WBC RBC Hgb Hct MCV MCH MCHC RDW Std Deviation Plt Count MPV Immature Gran % (Auto) Neut % (Auto) Lymph % (Auto) [place] % (Auto) Eos % (Auto) Baso % (Auto) Immature Gran # (Auto) Neut # (Auto) Lymph # (Auto) [place] # (Auto) Eos # (Auto) Baso # (Auto) Specimen Type Sample Site pH pCO2 pO2 HCO3 Base Excess Oxyhemoglobin ABG O2 Sat (Calculated) ABG O2 Saturation ABG Carboxyhemoglobin ABG Methemoglobin [place] Test A-a O2 Difference Total Hemoglobin Lactate Liter Flow Blood Gas Modality FiO2 % Inspiratory BiPAP Expiratory BiPAP Sodium Potassium Chloride Carbon Dioxide Anion Gap BUN Creatinine Estimated GFR/1.73 m2 BUN/Creatinine Ratio Glucose POC Glucose Estimat Average Glucose 140 Hemoglobin A1c 6.5 H Calculated Osmolality Calcium Rty-Y-Tnajwiunoix Pept 2747 H Urine Source CATH Urine Color ORANGE Urine Turbidity TURBID Urine pH 6.5 Ur Specific [place] 1.022 Urine Protein >600 A Ur Glucose (Stick) NEGATIVE Ur Ketones (Stick) TRACE A Urine Blood MODERATE A Urine Nitrite NEGATIVE Urine Bilirubin NEGATIVE Urobilinogen Dipstick 8 A Urine Leukocytes SMALL A Urine WBC (Auto) TNTC A Urine RBC (Auto) TNTC A U Epithel Cells (Auto) >10 A Urine Bacteria (Auto) NEGATIVE Urine Crystals NONE SEEN Small Round Cells NONE SEEN Urine Casts NONE SEEN Urine Yeast-like Cells PRESENT 10/26/19 10/26/19 16:28 18:00 WBC RBC Hgb Hct MCV MCH MCHC RDW Std Deviation Plt Count MPV Immature Gran % (Auto) Neut % (Auto) Lymph % (Auto) [place] % (Auto) Eos % (Auto) Baso % (Auto) Immature Gran # (Auto) Neut # (Auto) Lymph # (Auto) [place] # (Auto) Eos # (Auto) Baso # (Auto) Specimen Type ARTERIAL Sample Site R RADIAL pH 7.29 L pCO2 42 pO2 74 HCO3 20.0 Base Excess -6.2 L Oxyhemoglobin 93.4 L ABG O2 Sat (Calculated) 19.2 ABG O2 Saturation 95.9 ABG Carboxyhemoglobin 1.70 ABG Methemoglobin 0.9 [place]den Test YES A-a O2 Difference 587.0 Total Hemoglobin 14.6 Lactate 13.00 H* Liter Flow Blood Gas Modality BI PAP FiO2 % 100.0 Inspiratory BiPAP 16.0 Expiratory BiPAP 6.0 Sodium Potassium Chloride Carbon Dioxide Anion Gap BUN Creatinine Estimated GFR/1.73 m2 BUN/Creatinine Ratio Glucose POC Glucose 112 H Estimat Average Glucose Hemoglobin A1c Calculated Osmolality Calcium Qty-A-Rscujilmtds Pept Urine Source Urine Color Urine Turbidity Urine pH Ur Specific [place] Urine Protein Ur Glucose (Stick) Ur Ketones (Stick) Urine Blood Urine Nitrite Urine Bilirubin Urobilinogen Dipstick Urine Leukocytes Urine WBC (Auto) Urine RBC (Auto) U Epithel Cells (Auto) Urine Bacteria (Auto) Urine Crystals Small Round Cells Urine Casts Urine Yeast-like Cells Assessment: Acute hypoxemic respiratory failure secondary to pneumonia. Septic shock secondary to pneumonia, UTI and bacteremia. Severe bilateral pneumonia secondary to multidrug resistant Pseudomonas with right pleural effusion. COPD with pulmonary fibrosis. Bacteremia secondary to MRSA. S/P infected Port-A-Cath removal on 10/20/19. Urinary tract infection secondary to Pseudomonas. 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 DNR 2. High risk of mortality. Plan: Continue current treatment and supportive care per admitting and other teams on the case. Supplemental oxygen per clinical protocol. Pressor (Phenylephrine) titrated to patients needs per clinical protocols with closely monitoring. Antibiotics (Colistimethate, Daptomycin, and Meropenem), bronchodilators and mucomyst. Appropriate DVT and GI prophylaxis Input was appreciated from Admitting MD and other teams on the case. Evaluation time in minutes: 32 minutes.
[2019-10-26] MEDS ORDERED: LASIX IV ONE (20:54)
[2019-10-26] MEDS: LEVOPHED 8 MG in D5 1/2 NS 250 ML IV SCH (21:00)
[2019-10-26] MEDS: D50W SYRINGE IV PRN ×2 (21:30→22:28)
[2019-10-27] MEDS ORDERED: PITRESSIN 40 UNIT in NS 100 ML IV SCH (00:30)
[2019-10-27] MEDS: NEO-SYNEPHRINE 50 MG in NS 250 ML IV SCH ×3 (01:12→06:33)
[2019-10-27] MEDS: LEVOPHED 8 MG in D5 1/2 NS 250 ML IV SCH ×2 (01:14→05:15)
[2019-10-27] MEDS: MERREM 2 GM in NS 100 ML IV SCH (03:29)
[2019-10-27] MEDS ORDERED: EPINEPHRINE 8 MG in D5W 250 ML IV SCH (04:15)
[2019-10-27] MEDS ORDERED: NS 1,000 ML IV ONE (04:26)
[2019-10-27] MEDS: LOVENOX SUBQ SCH (04:48)
[2019-10-27] MEDS: NS 1,000 ML IV SCH (04:48)
[2019-10-27 05:19] LABS: BASO# 0.03 X1000 (0.0-0.2); BASO% 0.1 % (0.0-0.8); EOS# 0.04 X1000 (0.0-0.7); EOS% 0.2 % (0.0-10.0); HEMATOCRIT 45.2 % (42.0-52.0); HEMOGLOBIN 13.7 g/dL (14.0-18.0); MCH 31.6 PG (27-31); MCHC 30.3 g/dL (33-37); MCV 104.4 FL (81-99); MONO# 0.81 X1000 (0.11-0.59); MONO% 3.4 % (1.7-9.3); PLT 91 X1000 (130-400); RBC 4.33 XMIL (4.7-6.1); RDW 19.1 % (11.5-14.5); WBC 23.99 X1000 (4.8-10.8)
[2019-10-27 05:27] LABS: ALLEN TEST YES; BE -20.6 mmoll (-3.0-3.0); BLOOD TYPE ARTERIAL; HCO3-(ACT) 8.5 mmoll (20.0-26.0); PCO2(98.6) 46 mmHg (35-45); PO2(98.6) 74 mmHg (60-100); SAMPLE BLOOD
[2019-10-27 05:28] LABS: pH(98.6) 6.98 (7.35-7.45)
[2019-10-27 05:29] LABS: MODALITY BI PAP
[2019-10-27 05:42] LABS: POTASSIUM 5.7 mmol/L (3.5-5.1)
[2019-10-27] MEDS ORDERED: SODIUM BICARBONATE 8.4% IV PUSH ONE (06:19)
[2019-10-27] MEDS: PROTONIX IV SCH (06:32)
[2019-10-27] MEDS: D50W SYRINGE IV PRN (06:34)
[2019-10-27] MEDS: HUMULIN R SUBQ SCH (06:36)
--- NOTE | 2019-10-27 06:47 | Diag Imaging Result Doc PS360 ---
CHEST-PORTABLE - 10/27/2019 INDICATION: pulmonary edema/pneumonia COMPARISON: 10/26/2019 FINDINGS: Stable right PICC line in good position. Stable extensive heterogeneous infiltrates diffusely and bilaterally. There is worsening opacification of the right lower lobe. Heart size remains top normal. IMPRESSION: Worsening aeration of the right lower lobe. Electronically signed by Ilan Leon 10/27/2019 6:45 AM
[2019-10-27] MEDS ORDERED: D50W SYRINGE IV ONE (06:50)
[2019-10-27] MEDS ORDERED: SODIUM BICARBONATE 8.4% 150 MEQ in D5W 1,000 ML IV SCH (07:00)
[2019-10-27 07:28] LABS: BANDS 8 % (0-1); LYMPHS 8 % (21-51); MONO 16 % (1-9); SEGS 26 % (42-75)
[2019-10-27 09:38] VITALS: BP 38/23
--- NOTE | 2019-10-28 08:25 | DISCHARGE SUMMARY ---
ADMISSION DATE: 10/13/2019 DISCHARGE DATE: 10/27/2019 DATE OF : 10/27/2019 TIME OF : 8:17 a.m. CAUSE OF : Bilateral Pseudomonas pneumonia and septic shock. HOSPITAL COURSE/SUMMARY: Mr. 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 However, his pneumonia did not improve and his shortness of breath over the course of hospitalization started getting worse and he started becoming hypotensive. He was transferred to ICU on 10/24/2019, and he started requiring multiple intravenous pressors. Considering his declining status, his code status was changed to DNR level 2, according to his wishes by the family. On 10/27/2019 he was almost maxed out on 3 to 4 intravenous pressors, and he was on 100% BiPAP. I had informed the patient's son about his critical condition. Considering that he had not shown any signs of improvement and has had a gradual decline over last several days, his son had decided to make him DNR level 1 and comfort measures only. His intravenous pressors were removed and he was started on intravenous morphine as needed and his BiPAP bypass mask was changed to simple oxygen mask. After that, in a short period, he . Family was at bedside including patient's son. All of their questions and concerns were addressed. cc: Jered Mai MD
== END 2019-10-27 08:17 | disposition expired | DRG 314 ==
LOC: SUPCPDRO → ED 11:10 → SUATTDRO 15:01 → EDIPHOLD 15:01 → 2N 15:43 → 3N 10-17 18:14 → 2N 10-23 18:49 → ICU 10-25 16:01
PROVIDERS: ATTEND Internal Medicine